=== PATIENT | male | born 1945 | race Caucasian/White ===

== ENCOUNTER 2017-01-22 18:44 | Inpatient (IN) | payer MEDICARE, OTHER ==
[~2017-01-22] VITALS: Ht 190.5 cm; Wt 78.0 kg
[2017-01-22 18:53] VITALS: Ht 190.5 cm; Wt 78.0 kg
--- NOTE | 2017-01-22 19:00 | ERA ---
ER Documentation Chief Complaint Date/Time DATE: 01/22/17 TIME: 18:59 Chief Complaint increased secretions,on & off fever X1 week,BIBA from [facility] The patient is a 71-year-old male, presenting to the ER because of increase secretion and fever for 1 week from the skilled nursing. 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 He recently finished antibiotic Rocephin for acute cystitis Past medical history: Dyslipidemia, chronic respiratory failure, history of CVA , history of CHF, seizure disorder, hypertension, atrial fibrillation, BPH, GERD , history of decubitus ulcer Past surgical history: Gastrostomy tube, tracheostomy ROS All systems reviewed and are negative except as per history of present illness. Allergies Allergies: Coded Allergies: No Known Allergy (Unverified , 11/02/16) Physical Exam Vitals Vital Signs Date Time Temp Pulse Resp B/P Pulse Ox O2 Delivery O2 Flow Rate FiO2 01/22/17 19:45 100 10.0 50 01/22/17 19:25 6.0 50 01/22/17 18:53 98.2 96 23 123/65 99 Physical Exam Const: No acute distress. Head: Atraumatic. Eyes: Normal Conjunctiva. ENT: Normal External Ears, Nose and Mouth. Neck: Full range of motion. No meningismus. Resp: Clear to auscultation bilaterally. Cardio: Irregularly irregular Abd: Soft, non distended, normal bowel sounds, non tender. Positive G -tube Skin: No petechiae or rashes. Back: No midline or flank tenderness. Ext: No cyanosis, or edema. Contracted Neur: Unable to perform due to his condition Psych: Unable to perform due to his condition Result Diagram: 01/22/171934 Results 24 hrs Laboratory Tests Test 01/22/17 19:09 01/22/17 19:35 01/22/17 19:40 01/22/17 19:55 Blood Gas Specimen Source Blood arterial Arterial Blood Date Drawn 01/22/2017 7:15:14 PM Arterial Blood pH (Temp corrected) 7.482 Arterial Blood pCO2 (Temp correct) 43.1mmhg Arterial Blood pO2 (Temp corrected) 96.5mmHG Arterial Blood HCO3 31.5mmol/L Arterial Blood Base Excess 7.3mmol/L Arterial Blood Oxygen Saturation 97.2mmHG Polo Test ACCEPTAB Arterial Blood Gas Puncture Site Right Radial Arterial Blood Carboxyhemoglobin 0.3% Arterial Blood Methemoglobin 0.2% Blood Gas A-a O2 Differential 211.5mmHg Oxyhemoglobin Percent 96.7% Total Hemoglobin 11.4g/dl Blood Gas Temperature 37.0C Blood Gas Modality TRACH COLLAR FiO2 50.0% Blood Gas Notified Whom MG Blood Gas Notified Time 01/22/2017 7:22:08 PM White Blood Count 9.510^3/ul Red Blood Count 3.7810^6/ul Hemoglobin 11.0g/dl Hematocrit 33.4% Mean Corpuscular Volume 88.4fl Mean Corpuscular Hemoglobin 29.1pg Mean Corpuscular Hemoglobin Concent 32.9g/dl Red Cell Distribution Width 15.0% Platelet Count 08763^3/UL Mean Platelet Volume 9.7fl Neutrophils % 69.7% Lymphocytes % 19.6% Monocytes % 9.2% Eosinophils % 0.5% Basophils % 0.2% Nucleated Red Blood Cells % 0.0/100WBC Neutrophils # 6.610^3/ul Lymphocytes # 1.910^3/ul Monocytes # 0.910^3/ul Eosinophils # 0.110^3/ul Basophils # 0.010^3/ul Nucleated Red Blood Cells # 0.010^3/ul Prothrombin Time 13.6Sec Prothrombin Time Ratio 1.1 INR International Normalized Ratio 1.04 Activated Partial Thromboplast Time 29.2Sec Urine Color LT. YELLOW Urine Clarity SL HAZY Urine pH 6.0 Urine Specific [place] 1.015 Urine Ketones NEGATIVE Urine Nitrite NEGATIVE Urine Bilirubin NEGATIVE Urine Urobilinogen 0.2 E.U./dL Urine Leukocyte Esterase 1+ Urine Microscopic RBC 0-2/HPF Urine Microscopic WBC 25-50/HPF Urine Squamous Epithelial Cells FEW Urine Bacteria MODERATE Urine Mucus FEW Urine Yeast MANY Urine Hemoglobin TRACE Urine Glucose 0.25%% Urine Total Protein TRACE Bedside Urine pH (LAB) 5.5 Bedside Urine Protein (LAB) 1+ Bedside Urine Glucose (UA) 0.50% Bedside Urine Ketones (LAB) Negative Bedside Urine Blood Trace-intact Bedside Urine Nitrite (LAB) Negative Bedside Urine Leukocyte Esterase (L 1+ Current Medications Medications (Trade) Dose Ordered Sig/Noelle Route PRN Reason Start Time Stop Time Status Last Admin Dose Admin Piperacillin Sod/ Tazobactam Sod (Zosyn 3.375gm/ 100 ml (Pmx)) 100 ml @ 200 mls/hr ONCE ONCE IVPB 01/22/17 20:30 01/22/17 20:59 Procedures/MDM [place] [id number] Radiology Main Line: [phone] DIAGNOSTIC IMAGING REPORT Patient: SUKHJINDER DOLAN : 1945 Age: 71 Sex: M MR #: [id number] DOS: 01/22/17 1900 Ordering MD: ESSIE BYRNE MD Location: E/R Room/Bed: PROCEDURE: XR Chest. CLINICAL INDICATION: Sepsis TECHNIQUE: Single AP portable chest COMPARISON: 11/03/2016 Chest x-ray FINDINGS: The cardiomediastinal silhouette is within normal limits of size. Chronic elevation of the right hemidiaphragm with right base atelectasis. Tracheostomy tube in stable position. Atherosclerotic calcification of the aorta. The lungs are clear without pleural effusion or focal consolidation. No pneumothorax. The osseous structures and soft tissues are unremarkable. IMPRESSION: 1. No evidence for active cardiopulmonary disease. Chronic elevation of the right hemidiaphragm. Support devices in stable position. RPTAT:AAJJ Physician Liliana Date Time Electronically viewed and signed by Physician Liliana on 01/22/2017 19:46 DARREN/ CC: ESSIE BYRNE MD EKG: Read by emergency physician Rate/Rhythm: Atrial fibrillation 96 beats/min QRS, ST, T-waves: No ST elevation, anterolateral T abnormality, no PVC Impression: Abnormal EKG MEDICAL MAKING DECISION: The patient is a 71-year-old male, presenting with acute febrile illness, most likely due to acute cystitis, failed outpatient therapy. He was treated with Zosyn IV. We inserted a Dubon catheter out with about 400 cc plus of urine The differential diagnoses considered include but are not limited to pneumonia, cystitis, pyelonephritis, infected decubitus ulcer Departure Diagnosis: Primary Impression: UTI (urinary tract infection) Additional Impressions: Anemia Urinary retention Condition: Stable Comments I discussed the findings with the patient. I discussed the patient with his physician Dr. Rosana Billy who was made aware of the lab, the treatment, the patient condition. The patient is admitted to telemetry at 8:15 pm ESSIE BYRNE MD January 22, 2017 19:00
[2017-01-22 19:22] LABS: AADO2 Arterial 211.5 mmHg (7.0-24.0); Allen Test ACCEPTAB; Arterial Base Excess 7.3 mmol/L (-3.0-3); Arterial COHb 0.3 % (0.0-3.0); Arterial Fraction of Oxyhgb 96.7 % (93.0-99.0); Arterial HCO3 31.5 mmol/L (22.0-26.0); Arterial MetHb 0.2 % (0.0-1.5); Arterial Total Hemglobin 11.4 g/dl (12.0-18.0); MODE TRACH COLLAR
--- NOTE | 2017-01-22 19:46 | RADRPT ---
PROCEDURE: XR Chest. CLINICAL INDICATION: Sepsis TECHNIQUE: Single AP portable chest COMPARISON: 11/03/2016 Chest x-ray FINDINGS: The cardiomediastinal silhouette is within normal limits of size. Chronic elevation of the right hem idiaphragm with right base atelectasis. Tracheostomy tube in stable position. Atherosclerotic devon cification of the aorta. The lungs are clear without pleural effusion or focal consolidation. No pn eumothorax. The osseous structures and soft tissues are unremarkable. IMPRESSION: 1. No evidence for active cardiopulmonary disease. Chronic elevation of the right hemidiaphragm. Rodriguez pport devices in stable position. RPTAT:AAJJ Physician Liliana Date Time Electronically viewed and signed by Physician Liliana on 01/22/2017 19:46 DARREN/
[2017-01-22 19:51] LABS: ADD SCAN DIFF NO
[2017-01-22 19:53] LABS: BASOPHILS % 0.2 % (0.0-2.0); EOSINOPHILS # 0.1 10^3/ul (0.0-0.5); EOSINOPHILS % 0.5 % (0.0-7.0); HEMATOCRIT 33.4 % (42.0-52.0); LYMPHOCYTES # 1.9 10^3/ul (0.8-2.9); LYMPHOCYTES % 19.6 % (15.0-51.0); MEAN CORPUSCULAR HEMOGLOBIN 29.1 pg (29.0-33.0); MEAN CORPUSCULAR HGB CONC 32.9 g/dl (32.0-37.0); MEAN CORPUSCULAR VOLUME 88.4 fl (82.0-101.0); MEAN PLATELET VOLUME 9.7 fl (7.4-10.4); MONOCYTE # 0.9 10^3/ul (0.3-0.9); MONOCYTES % 9.2 % (0.0-11.0); NEUTROPHIL # 6.6 10^3/ul (1.6-7.5); NEUTROPHILS % 69.7 % (39.0-77.0); PLATELET COUNT 361 10^3/UL (140-415); RED BLOOD COUNT 3.78 10^6/ul (4.70-6.10); WHITE BLOOD COUNT 9.5 10^3/ul (4.8-10.8)
[2017-01-22 19:53] LABS: URINE BLOOD (Dip) POC Trace-intact (NEGATIVE)
[2017-01-22 19:57] LABS: ADD UMIC YES; URINE BILIRUBIN (Dip) NEGATIVE (NEGATIVE); URINE BLOOD (Dip) TRACE (NEGATIVE); URINE COLOR LT. YELLOW (YELLOW); URINE KETONES (Dip) NEGATIVE (NEGATIVE); URINE LEUKOCYTE ESTERASE (Dip) 1+ (NEGATIVE); URINE NITRITE (Dip) NEGATIVE (NEGATIVE); URINE TOTAL PROTEIN (Dip) TRACE (NEGATIVE); URINE UROBILINOGEN (Dip) 0.2 E.U./dL (0.1-1.0)
[2017-01-22 20:07] LABS: INR 1.04; PROTIME 13.6 Sec (12.2-14.2); PT RATIO 1.1
[2017-01-22 20:08] LABS: PARTIAL THROMBOPLASTIN TIME 29.2 Sec (25.0-35.0)
[2017-01-22 20:09] LABS: URINE RBCS 0-2 /HPF (0)
[2017-01-22 20:10] LABS: BACTERIA,URINE MODERATE; MUCUS,URINE FEW
[2017-01-22 20:11] LABS: SQUAMOUS EPITHELIAL CELL,UR FEW
[2017-01-22 20:21] LABS: ALBUMIN 3.2 g/dl (3.3-4.9); CHLORIDE 90 mmol/L (97-110); SODIUM 134 mmol/L (135-144)
[2017-01-22 20:22] LABS: POTASSIUM 4.3 mmol/L (3.5-5.1)
[2017-01-22 20:24] LABS: ALANINE AMINOTRANSFERASE 36 IU/L (13-69); ALBUMIN/GLOBULIN RATIO 0.78; ALKALINE PHOSPHATASE 107 IU/L (42-121); ANION GAP 18 (8-16); ASPARTATE AMINO TRANSFERASE 33 IU/L (15-46); BLOOD UREA NITROGEN 25 mg/dl (7-20); CARBON DIOXIDE 30 mmol/L (21-31); CREATININE 0.43 mg/dl (0.61-1.24); GLUCOSE 205 mg/dl (70-220); TOTAL PROTEIN 7.3 g/dl (6.1-8.1)
[2017-01-22 20:25] LABS: CALCIUM 9.1 mg/dl (8.4-10.2)
[2017-01-22] MEDS ORDERED: PIPER-TAZO 3.375 GM IV (PMX) 100 ML IVPB ONE (20:30)
[2017-01-22 20:43] LABS: TROPONIN-I < 0.012 ng/ml (0.00-0.12)
[2017-01-22] MEDS ORDERED: TAMS-14 G-TUBE (22:29)
[2017-01-22] MEDS ORDERED: FLUC200T52 G-TUBE (22:29)
[2017-01-22] MEDS ORDERED: DOCU-159 GTB (22:29)
[2017-01-22] MEDS ORDERED: BISA10SU55 RC (22:29)
[2017-01-22] MEDS ORDERED: CARSR90 G-TUBE (22:29)
[2017-01-22] MEDS ORDERED: FINA5TAB4 G-TUBE (22:29)
[2017-01-22] MEDS ORDERED: DIGO125T6 G-TUBE (22:29)
[2017-01-22] MEDS ORDERED: SUCR1TAB56 G-TUBE (22:29)
[2017-01-22] MEDS ORDERED: ATOR40TA68 G-TUBE (22:29)
[2017-01-22 22:35] VITALS: TEMP 98.8
[2017-01-22] MEDS ORDERED: LEVEM SC (22:50)
[2017-01-22] MEDS ORDERED: MAGN400O4 G-TUBE (22:50)
[2017-01-22] MEDS ORDERED: LEVE250T66 G-TUBE (22:50)
[2017-01-22] MEDS ORDERED: FURO20TA3 G-TUBE (22:50)
[2017-01-22] MEDS ORDERED: MULTI G-TUBE (22:50)
[2017-01-22] MEDS ORDERED: HYDR-906 G-TUBE (22:50)
[2017-01-22] MEDS ORDERED: LISI10TA2 G-TUBE (22:50)
[2017-01-22] MEDS ORDERED: METF500T4 PO (22:50)
[2017-01-22] MEDS ORDERED: METO-448 G-TUBE (22:50)
[2017-01-22] MEDS ORDERED: AMIN30LI G-TUBE (23:07)
[2017-01-22] MEDS ORDERED: NOVO3I SC (23:07)
[2017-01-22] MEDS ORDERED: MODA100T10 G-TUBE (23:07)
[2017-01-22] MEDS ORDERED: ACET325T45 G-TUBE (23:07)
[2017-01-22] MEDS ORDERED: OMEP20CA16 G-TUBE (23:07)
[2017-01-22] MEDS ORDERED: CHLO473M4 MM (23:07)
[2017-01-22] MEDS ORDERED: ACET-2047 G-TUBE (23:07)
[2017-01-22 23:15] VITALS: BP 102/84; PULSE 136; RESP 18
[2017-01-22 23:30] VITALS: BP 121/84; PULSE 120; RESP 19
[2017-01-22 23:45] VITALS: BP 123/71; PULSE 115; RESP 20
[2017-01-23] VITALS (30 sets, daily range): BP systolic 103–161; BP diastolic 59–130; PULSE 77–155; RESP 19–35
[2017-01-23] MEDS ORDERED: INSULIN ASPART [NOVOLOG] 3 ML PEN SC SCH
[2017-01-23] MEDS ORDERED: BISACODYL 10 MG SUPP PR SCH
[2017-01-23] MEDS ORDERED: MAGNESIUM HYDROXIDE 30ML CUP GTB SCH
[2017-01-23] MEDS ORDERED: ACETAMINOPHEN 325 MG TAB GTB PRN ×2
[2017-01-23] MEDS ORDERED: CEFTRIAXONE 1 GM/50 ML (PMX) 50 ML IVPB SCH
[2017-01-23] MEDS ORDERED: DEXTROSE 5%-0.9% NACL 1,000 ML IV SCH
[2017-01-23] MEDS ORDERED: ACETAMINOPHEN 650MG/20.3ML CUP GTB PRN (01:00)
[2017-01-23] MEDS ORDERED: SOD CHLORIDE 0.9% IV ONE (01:30)
[2017-01-23] MEDS: HYDROCODONE/APAP (5/325) TAB GTB SCH ×2 (01:47→05:58)
[2017-01-23] MEDS: SUCRALFATE 1 GM TAB GTB SCH ×4 (01:47→17:25)
[2017-01-23] MEDS: METOPROLOL 25 MG TAB GTB SCH ×4 (01:48→17:26)
[2017-01-23] MEDS: LANSOPRAZOLE 30 MG CAP GTB SCH ×2 (05:58→17:25)
[2017-01-23] MEDS ORDERED: DILTIAZEM 90 MG TAB GTB SCH (06:00)
[2017-01-23] MEDS ORDERED: FUROSEMIDE 20 MG TAB GTB SCH (06:00)
[2017-01-23] MEDS ORDERED: DILTIAZEM (SR) 90 MG CAP PO SCH (06:00)
[2017-01-23 06:07] LABS: ADD SCAN DIFF NO; BASOPHILS % 0.2 % (0.0-2.0); EOSINOPHILS # 0.1 10^3/ul (0.0-0.5); EOSINOPHILS % 0.5 % (0.0-7.0); HEMATOCRIT 32.1 % (42.0-52.0); HEMOGLOBIN 10.2 g/dl (14.0-18.0); LYMPHOCYTES # 2.6 10^3/ul (0.8-2.9); LYMPHOCYTES % 25.9 % (15.0-51.0); MEAN CORPUSCULAR HEMOGLOBIN 28.6 pg (29.0-33.0); MEAN CORPUSCULAR HGB CONC 31.8 g/dl (32.0-37.0); MEAN CORPUSCULAR VOLUME 89.9 fl (82.0-101.0); MEAN PLATELET VOLUME 9.5 fl (7.4-10.4); MONOCYTE # 0.9 10^3/ul (0.3-0.9); MONOCYTES % 8.3 % (0.0-11.0); NEUTROPHIL # 6.5 10^3/ul (1.6-7.5); NEUTROPHILS % 64.1 % (39.0-77.0); PLATELET COUNT 344 10^3/UL (140-415); RED BLOOD COUNT 3.57 10^6/ul (4.70-6.10); RED CELL DISTRIBUTION WIDTH 15.2 % (11.5-14.5); WHITE BLOOD COUNT 10.2 10^3/ul (4.8-10.8)
[2017-01-23] MEDS: DILTIAZEM 30 MG TAB GTB SCH ×3 (06:08→22:22)
[2017-01-23 06:49] LABS: POTASSIUM 4.1 mmol/L (3.5-5.1)
[2017-01-23 06:52] LABS: CREATININE 0.44 mg/dl (0.61-1.24)
[2017-01-23] MEDS ORDERED: PENDING SANTYL ORDER FOR WOUND CARE XX PRN ×2 (07:30→08:30)
[2017-01-23] MEDS ORDERED: metFORMIN 500 MG TAB PO SCH (07:35)
[2017-01-23] MEDS ORDERED: DEXTROSE 50% 50 ML SYRINGE IV PRN ×2 (08:30)
[2017-01-23] MEDS ORDERED: GLUCOSE GEL 15 GRAM TUBE BUCCAL PRN (08:30)
[2017-01-23] MEDS ORDERED: GLUCOSE GEL 15 GRAM TUBE PO PRN ×2 (08:30)
[2017-01-23] MEDS ORDERED: GLUCAGON 1 MG INJ IM PRN (08:30)
[2017-01-23] MEDS ORDERED: BISACODYL 10 MG SUPP PR PRN (09:00)
[2017-01-23] MEDS ORDERED: NON-FORMULARY/PATIENT OWN MED (Omeprazole* 20 MG) G-TUBE SCH (09:00)
[2017-01-23] MEDS ORDERED: INSULIN DETEMIR [LEVEMIR] 3ML CART SC SCH (09:00)
[2017-01-23] MEDS ORDERED: MODAFINIL 100 MG TAB GTB SCH (09:00)
[2017-01-23] MEDS ORDERED: HYDROCODONE/APAP (5/325) TAB GTB PRN (09:00)
[2017-01-23] MEDS ORDERED: INSULIN DETEMIR 15 UNIT SC SCH (09:00)
[2017-01-23] MEDS: INSULIN ASPART [NOVOLOG] 3 ML PEN SC SCH ×5 (09:00→20:41)
[2017-01-23] MEDS ORDERED: DOCUSATE SODIUM 100 MG CAP PO SCH (09:00)
[2017-01-23] MEDS: CHLORHEXIDINE GLUCONATE 15 ML UD CUP MM SCH ×2 (09:26→20:34)
[2017-01-23] MEDS: TAMSULOSIN (SR) 0.4 MG CAP PO SCH (09:26)
[2017-01-23] MEDS: LISINOPRIL 10 MG TAB GTB SCH (09:26)
[2017-01-23] MEDS: MULTIVITAMINS THERAPEUTIC TAB GTB SCH (09:26)
[2017-01-23] MEDS: LEVETIRACETAM 250 MG TAB PO SCH ×2 (09:26→20:34)
[2017-01-23] MEDS: FINASTERIDE 5 MG TAB GTB SCH (09:26)
[2017-01-23] MEDS: PIPER-TAZO 3.375 GM IV (PMX) 100 ML IVPB SCH ×3 (09:26→22:23)
[2017-01-23] MEDS: DOCUSATE SODIUM 10 MG/ML (10ML CUP) NGT SCH ×2 (09:26→20:34)
--- NOTE | 2017-01-23 10:12 | CONS ---
Date/Time of Note Date/Time of Note DATE: 01/23/17 TIME: 10:07 Assessment/Plan Assessment/Plan Additional Assessment/Plan Chest x-ray was reviewed from yesterday which is showing elevation of right hemidiaphragm likely a chronic finding. Next Urine analysis is positive for moderate yeast. Next Assessment recommendations; 1. Patient admitted for UTI likely from yeast with possibly some element of aspiration pneumonia involving the right upper lobe. 2. Chronic respiratory failure, maintained on T-piece. 3. Multiple other comorbidities including CHF, CVA, atrial fibrillation, diabetes and hypertension. Continue current treatment. Obtain follow-up chest x-ray in 24 hours. Start Diflucan 200 mg IV daily. Further antibiotic adjustment to be done once culture results are obtained. Consultation Date/Type/Reason Admit Date/Time January 22, 2017 at 20:20 Date of Consultation: January 23, 2017 Type of Consultation: Pulmonary/critical care Reason for Consultation Pulmonary consultations obtained for evaluation of respiratory failure, patient admitted with sepsis. History of presenting any; Patient is a 71-year-old gentleman who was also to ER [facility] with complaints of fever as well as secretions coming from the tracheostomy tube. Patient because of his history of severe CVA is unable to give any history whatsoever and history was obtained from medical records. Currently patient was doing fine until yesterday morning when low-grade fever was discovered in association with secretions coming through the tracheostomy tube. No overt seizure activity has been reported. Patient has been remained hemodynamically stable. Next Past medical history; 1. History of chronic respiratory failure, patient maintained on tracheal T piece. 2. History of tracheostomy and G-tube extra # 3. CVA. 4. Chronic atrial fibrillation. 5. CHF. 6. Hypertension. 7. Diabetes. 8. BPH. Medications; reviewed. Allergies; none. Social history; patient never smoked Family history; patient is has a supportive family. Occupational history; patient currently on disability. Review systems; unable to be obtained.. General exam; elderly male, awake but unresponsive to any commands, currently in no distress, maintained on tracheal T piece. Social History Smoking Status: Unknown if ever smoked Exam/Review of Systems Vital Signs Vitals Vital Signs Date Time Temp Pulse Resp B/P Pulse Ox O2 Delivery O2 Flow Rate FiO2 01/23/17 08:00 97 23 128/77 100 Trach Collar 01/23/17 07:25 10.0 40 01/23/17 04:00 98.5 Intake and Output 01/22/17 01/22/17 01/23/17 14:59 22:59 06:59 Intake Total 3100 ml Output Total 485 ml Balance 2615 ml Exam HEENT exam is; supple neck, positive JVD. No lymphadenopathy. Midline trachea. No thyromegaly. Pupils are midsize bilaterally. Tracheostomy placed with clean insertion site. Chest exam is; clear to auscultation. No added sound. S1-S2 audible, no murmurs, irregular rhythm. Abdomen examination; soft, G-tube in place. Bowel sounds audible. No organomegaly. Extremity examination; no peripheral edema. Skin exam; no skin ulcerations. PROJECT COORDINATOR examination; patient is awake but unresponsive to any commands. Results Result Diagram: 01/23/17 0547 01/23/17 0524 Results 24 hrs Laboratory Tests Test 01/22/17 19:09 01/22/17 19:35 01/22/17 19:40 01/22/17 19:55 Blood Gas Specimen Source Blood arterial Arterial Blood Date Drawn 01/22/2017 7:15:14 PM Arterial Blood pH (Temp corrected) 7.482 H Arterial Blood pCO2 (Temp correct) 43.1 Arterial Blood pO2 (Temp corrected) 96.5 H Arterial Blood HCO3 31.5 H Arterial Blood Base Excess 7.3 H Arterial Blood Oxygen Saturation 97.2 Polo Test ACCEPTAB Arterial Blood Gas Puncture Site Right Radial Arterial Blood Carboxyhemoglobin 0.3 Arterial Blood Methemoglobin 0.2 Blood Gas A-a O2 Differential 211.5 H Oxyhemoglobin Percent 96.7 Total Hemoglobin 11.4 L Blood Gas Temperature 37.0 Blood Gas Modality TRACH COLLAR FiO2 50.0 Blood Gas Notified Whom MG Blood Gas Notified Time 01/22/2017 7:22:08 PM White Blood Count 9.5 # Red Blood Count 3.78 L Hemoglobin 11.0 L Hematocrit 33.4 L Mean Corpuscular Volume 88.4 Mean Corpuscular Hemoglobin 29.1 Mean Corpuscular Hemoglobin Concent 32.9 Red Cell Distribution Width 15.0 H Platelet Count 361 Mean Platelet Volume 9.7 Neutrophils % 69.7 Lymphocytes % 19.6 Monocytes % 9.2 Eosinophils % 0.5 Basophils % 0.2 Nucleated Red Blood Cells % 0.0 Neutrophils # 6.6 Lymphocytes # 1.9 Monocytes # 0.9 Eosinophils # 0.1 Basophils # 0.0 Nucleated Red Blood Cells # 0.0 Prothrombin Time 13.6 Prothrombin Time Ratio 1.1 INR International Normalized Ratio 1.04 Activated Partial Thromboplast Time 29.2 Sodium Level 134 L Potassium Level 4.3 Chloride Level 90 L Carbon Dioxide Level 30 Anion Gap 18 H Blood Urea Nitrogen 25 H Creatinine 0.43 L Glucose Level 205 Lactic Acid Level 2.9 H Calcium Level 9.1 Total Bilirubin 0.0 L Direct Bilirubin 0.00 Indirect Bilirubin 0.0 Aspartate Amino Transf (AST/SGOT) 33 Alanine Aminotransferase (ALT/SGPT) 36 Alkaline Phosphatase 107 Troponin I < 0.012 Total Protein 7.3 Albumin 3.2 L Globulin 4.10 H Albumin/Globulin Ratio 0.78 Urine Color LT. YELLOW Urine Clarity SL HAZY Urine pH 6.0 Urine Specific [place] 1.015 Urine Ketones NEGATIVE Urine Nitrite NEGATIVE Urine Bilirubin NEGATIVE Urine Urobilinogen 0.2 E.U./dL Urine Leukocyte Esterase 1+ H Urine Microscopic RBC 0-2 Urine Microscopic WBC 25-50 Urine Squamous Epithelial Cells FEW Urine Bacteria MODERATE Urine Mucus FEW Urine Yeast MANY Urine Hemoglobin TRACE Urine Glucose 0.25% H Urine Total Protein TRACE Bedside Urine pH (LAB) 5.5 Bedside Urine Protein (LAB) 1+ H Bedside Urine Glucose (UA) 0.50% H Bedside Urine Ketones (LAB) Negative Bedside Urine Blood Trace-intact H Bedside Urine Nitrite (LAB) Negative Bedside Urine Leukocyte Esterase (L 1+ H Test 01/22/17 21:30 01/22/17 23:40 01/23/17 05:24 01/23/17 05:47 Lactic Acid Level 2.3 H 2.4 H Sodium Level 136 Potassium Level 4.1 Chloride Level 97 Carbon Dioxide Level 29 Anion Gap 14 Blood Urea Nitrogen 19 Creatinine 0.44 L Glucose Level 228 H Calcium Level 8.0 L White Blood Count 10.2 Red Blood Count 3.57 L Hemoglobin 10.2 L Hematocrit 32.1 L Mean Corpuscular Volume 89.9 Mean Corpuscular Hemoglobin 28.6 L Mean Corpuscular Hemoglobin Concent 31.8 L Red Cell Distribution Width 15.2 H Platelet Count 344 Mean Platelet Volume 9.5 Neutrophils % 64.1 Lymphocytes % 25.9 Monocytes % 8.3 Eosinophils % 0.5 Basophils % 0.2 Nucleated Red Blood Cells % 0.0 Neutrophils # 6.5 Lymphocytes # 2.6 Monocytes # 0.9 Eosinophils # 0.1 Basophils # 0.0 Nucleated Red Blood Cells # 0.0 Test 01/23/17 09:15 Bedside Glucose 280 H Medications Medications Current Medications Dextrose/Sodium Chloride 1,000 ml @ 75 mls/hr [id number] IV Last administered on 01/22/17 23:46; Admin Dose 75 MLS/HR; Start 01/23/17 at 00:00 Ceftriaxone Sodium (Rocephin) 50 ml @ 100 mls/hr Q24H IVPB Last administered on 01/23/17 00:19; Admin Dose 100 MLS/HR; Start 01/23/17 at 00:00 Atorvastatin Calcium (Lipitor) 40 mg QHS GTB ; Start 01/23/17 at 21:00 Chlorhexidine Gluconate (Peridex) 15 ml Q12 MM Last administered on 01/23/17 09:26; Admin Dose 15 ML; Start 01/23/17 at 09:00 Digoxin (Digoxin) 0.125 mg DAILY@13 GTB ; Start 01/23/17 at 13:00 Finasteride (Proscar) 5 mg DAILY GTB Last administered on 01/23/17 09:26; Admin Dose 5 MG; Start 01/23/17 at 09:00 Furosemide (Lasix) 20 mg DAILY@06 GTB Last administered on 01/23/17 05:59; Admin Dose 20 MG; Start 01/23/17 at 06:00; Status Future Hold Levetiracetam (Keppra) 125 mg Q12 PO Last administered on 01/23/17 09:26; Admin Dose 125 MG; Start 01/23/17 at 09:00 Lisinopril (Zestril) 10 mg DAILY GTB Last administered on 01/23/17 09:26; Admin Dose 10 MG; Start 01/23/17 at 09:00 Metoprolol Tartrate (Lopressor) 25 mg Q6 GTB Last administered on 01/23/17 05: 57; Admin Dose 25 MG; Start 01/23/17 at 00:00 Multivitamins Therapeutic (Theragran) 1 tab DAILY GTB Last administered on 01/23 09:26; Admin Dose 1 TAB; Start 01/23/17 at 09:00 Sucralfate (Carafate) 1 gm Q6 GTB Last administered on 01/23/17 05:59; Admin Dose 1 GM; Start 01/23/17 at 00:00 Tamsulosin HCl (Flomax) 0.4 mg DAILY PO Last administered on 01/23/17 09:26; Admin Dose 0.4 MG; Start 01/23/17 at 09:00 Lansoprazole (Prevacid) 30 mg BID@,18 GTB Last administered on 01/23/17 05: 58; Admin Dose 30 MG; Start 01/23/17 at 06:00 Insulin Detemir (Levemir) 15 unit Q12 SC Last administered on 01/23/17 09:28; Admin Dose 15 UNIT; Start 01/23/17 at 09:00 Acetaminophen (Tylenol Liquid) 650 mg Q4H PRN GTB PAIN AND OR ELEVATED TEMP; Start 01/23/17 at 01:00 Modafinil (Provigil) 50 mg DAILY GTB ; Start 01/23/17 at 09:00 Diltiazem HCl (Cardizem) 90 mg Q8 GTB Last administered on 01/23/17 06:08; Admin Dose 90 MG; Start 01/23/17 at 06:00 Insulin Aspart (Novolog Insulin Pen) NOVOLOG *MILD* ALGORI... Q4 SC ; Start at 09:00 Miscellaneous Information (Pending Santyl Order For Wound Care) This patient horowitz... PRN PRN XX WOUND CARE; Start 01/23/17 at 08:30 Miscellaneous Information 1 ea NOTE XX ; Start 01/23/17 at 08:30 Glucose (Glutose) 15 gm Q15M PRN PO DECREASED GLUCOSE; Start 01/23/17 at 08:30 Glucose (Glutose) 22.5 gm Q15M PRN PO DECREASED GLUCOSE; Start 01/23/17 at 08: 30 Dextrose (D50w Syringe) 25 ml Q15M PRN IV DECREASED GLUCOSE; Start 01/23/17 at 08:30 Dextrose (D50w Syringe) 50 ml Q15M PRN IV DECREASED GLUCOSE; Start 01/23/17 at 08:30 Glucagon (Glucagen) 1 mg Q15M PRN IM DECREASED GLUCOSE; Start 01/23/17 at 08:30 Glucose 15 gm 15 gm Q15M PRN BUCCAL DECREASED GLUCOSE; Start 01/23/17 at 08:30 Piperacillin Sod/ Tazobactam Sod (Zosyn 3.375gm/ 100 ml (Pmx)) 100 ml @ 200 mls /hr Q8 IVPB Last administered on 01/23/17 09:26; Admin Dose 200 MLS/HR; Start 01/23/17 at 08:15 Acetaminophen/ Hydrocodone Bitart (Higgins (5/325)) 1 tab Q4 PRN GTB PAIN; Start 01/23/17 at 09:00 Magnesium Hydroxide (Milk Of Mag) 30 ml Q24H PRN GTB CONSTIPATION; Start at 00:00 Docusate Sodium (Colace Liquid Cup) 100 mg BID NGT Last administered on 09:26; Admin Dose 100 MG; Start 01/23/17 at 09:00 Bisacodyl (Dulcolax Supp) 10 mg Q48H PRN ND CONSTIPATION; Start 01/23/17 at 09: 00 ROBSON CLARK January 23, 2017 10:12
--- NOTE | 2017-01-23 10:48 | CONS ---
DATE OF ADMISSION: 01/22/2017 DATE OF CONSULTATION: 01/23/2017 TYPE OF CONSULTATION: CARDIOLOGY REASON FOR CONSULTATION: Atrial fibrillation, congestive heart failure. CHIEF COMPLAINT: Fever, possible UTI, sepsis, respiratory failure. HISTORY OF PRESENT ILLNESS: Thank you for this referral. History was obtained from discussion with multiple physicians including Dr. Cortez, discussion with the staff, discussion with the patient's daughter and . The patient also known to me when he was admitted to [facility], old recor ds were reviewed as well. This is an unfortunate 71-year-old gentleman with history of CVA, recurre nt, who has had respiratory failure, status post tracheostomy and was [facility] because of increasing recurrent fever as well as possible UTI including possibly secretions. The pa tient history, he was noted to be in atrial fibrillation with rapid ventricular response. The patient is nonverbal, unable to provide history to me, but no reported chest pain or pressure. MEDICATIONS: Reviewed as per medical reconciliation sheet, which was personally reviewed. ALLERGIES: NO REPORTED ALLERGIES. SOCIAL HISTORY: The patient currently does not smoke. He apparently had smoked in the past. FAMILY HISTORY: No reported early coronary artery disease. PAST MEDICAL HISTORY: History of cerebrovascular accident many years ago. He had another CVA appar ently earlier this year, which appeared to be a hemorrhagic stroke at that time. He has chronic atr ial fibrillation, dyslipidemia, history of congestive heart failure, valvular heart disease, diabete s, encephalopathy. REVIEW OF SYSTEMS: As above-mentioned, patient is bedridden, otherwise all are negative. PHYSICAL EXAMINATION: VITAL SIGNS: Temperature 98.5, heart rate of 97, blood pressure 128/77, respiratory rate of 23, sat urating 100%. HEENT: Normocephalic, atraumatic. Pupils are equal. NECK: Status post tracheostomy, on oxygen. CARDIOVASCULAR: Irregularly irregular, tachycardic. PULMONARY: With mild diffuse rhonchi. GASTROINTESTINAL: Soft, status post PEG placement. EXTREMITIES: With trivial edema. NEUROLOGIC: Opens his eyes, is not verbal. Unable to move his right extremity. PSYCHIATRIC: Appears to be calm now. DERMATOLOGIC: With no active bleeding. LABORATORY DATA: Sodium 136, potassium 4.1, BUN of 19, creatinine 0.44, glucose of 228. WBC of 7.2 , hemoglobin 10.2, platelet of 344. Review of the old chart showed that he had an echocardiogram done on 11/07/2016 showed ejection frac tion of 55%. There is moderate mitral valve regurgitation. PA pressure of 26 mmHg. EKG was person ally reviewed, which showed atrial fibrillation, nonspecific ST-T abnormalities. ASSESSMENT AND PLAN: 1. Atrial fibrillation with rapid ventricular response. 2. Hypoxemic, hypercapnic respiratory failure, status post tracheostomy. 3. History of repeated CVAs including what appeared to be a hemorrhagic CVA this year, currently no t anticoagulated. 4. Anemia. 5. Urinary tract infection and possible sepsis. 6. Abnormal EKG secondary to above. 7. History of hypertension, currently under better control. 8. History of dyslipidemia. RECOMMENDATIONS: I will continue with the heart rate control with digoxin, Cardizem and metoprolol. I will check a digoxin level tomorrow morning. Respiratory care will be continued and managed as per pulmonary. Antibiotic as per internal medicine. The patient is not anticoagulated at this time due to concern about his recent hemorrhagic CVA. We will consider repeat CAT scan and evaluation b y neurology to see if it is safe for the patient to be resumed on the anticoagulants. For now, we w ill continue with current cardiac care. Continue with ICU care. We will continue to follow. If th e patient remains tachycardic, may consider discontinuation of as well. Discussed with Dr. Ra colin. Dictated By: KATHY LAFLEUR/NERY Conf#: [id number] DID#: [id number] CC: NAVEEN CORTEZ DO;*EndCC*
--- NOTE | 2017-01-23 10:51 | HP ---
DATE OF ADMISSION: 01/22/2017 CHIEF COMPLAINT: Sepsis. HISTORY OF PRESENT ILLNESS: This is a 71-year-old male with a past medical history of cerebrovascul ar accident with chronic encephalopathy, history of chronic respiratory failure status post tracheos tierra, history of dysphagia, history of seizure disorder, hypertension, AFib, BPH, GERD, history of d yslipidemia who presents to [facility] for evaluation of his underlying fever. Th e patient resides at [facility] and was noted to have a urinary tract infection and has been re ceiving antibiotics; however, patient continues to have low grade fevers. As a result, he was broug ht over to [facility] for continued evaluation. In the emergency room, the patien t was afebrile. Laboratory data drawn showed a white count 9.5. The patient had a chest x-ray that showed no acute findings. The patient's urinalysis did show some findings of pyuria and the renato dhillon was started on antibiotic therapy and was admitted to telemetry for further evaluation. Upon my evaluation of the patient, the patient has currently opened his eyes, is able to track, whic h is his baseline. The patient is nonverbal. There have been no reports of hemoptysis, hematemesis or hematochezia. PAST MEDICAL HISTORY: As stated above, history of CVA, history of dysphagia, history of seizure dis order, hypertension, history of chronic encephalopathy, history of BPH, history of GERD, history of decubitus wound, history of aphasia this. PAST SURGICAL HISTORY: Status post trach, status post PEG. FAMILY HISTORY: Noncontributory. SOCIAL HISTORY: Lives at a skilled nurse facility. MEDICATIONS: The patient's medications have been reviewed and reconciled. ALLERGIES: NO KNOWN DRUG ALLERGIES. REVIEW OF SYSTEMS: Unable to do adequate review of systems as the patient is nonverbal. Pertinent positives as obtained by reviewing medical records, speaking to hospital staff, stated in HPI, other tamez negative. PHYSICAL EXAMINATION: VITAL SIGNS: Blood pressure is 103/59, respirations 20, pulse 77, temperature 98.5. HEENT: Head is normocephalic. NECK: Supple. Exam shows a trach. HEART: Regular rate. LUNGS: Show diminished breath sounds at base. ABDOMEN: Soft, nontender to palpation. No rebound or guarding. Positive for PEG. EXTREMITIES: Negative for clubbing, cyanosis, no edema. DERMATOLOGIC: No rashes. MUSCULOSKELETAL: Positive wound. NEUROLOGIC: Limited exam due to lack of patient cooperation. LABORATORY DATA: Shows sodium 136, potassium 4.1, chloride 97, BUN 19, creatinine 0.44. White coun t 10.2, hemoglobin 10.2, hematocrit 32.1, platelet count 344. IMAGING STUDIES: As stated in HPI. ASSESSMENT AND PLAN: This is a 71-year-old male who presents with: 1. Sepsis, underlying source secondary to urinary tract infection, possible . The patient's u rinalysis shows pyuria. The patient has copious secretions. Chest x-ray was negative. Plan is to continue antibiotics with Zosyn. Will followup blood cultures, urine cultures, sputum culture. Pipe l continue to monitor lactic acid levels as they are trending down. Continue IV fluids for another 24 hours. We will follow up procalcitonin level. We will also place an ID consult with Dr. Parra for evaluation. 2. Chronic respiratory failure, status post tracheostomy, patient is currently stable on trach mask , will continue. Continue nebulizer therapy. We will place a pulmonary consult with Dr. Murrell fo r evaluation. 3. Atrial fibrillation, currently rate controlled. The patient will continue medical management wi th beta blockers. Will defer full anticoagulation as there is a questionable history of bleed. We will follow up with the patient's family who also place a cardiology consult with Dr. Briones for [place]. 4. Chronic encephalopathy secondary to cerebrovascular accident. 5. Acute on chronic encephalopathy. Etiology is likely toxic metabolic, possibly due to UTI and se psis. We will continue current antibiotic regimen and will monitor mental status closely. 6. Dysphagia status post percutaneous endoscopic gastrostomy tube. Continue tube feeding. 7. History of hypertension. Continue current blood pressure regimen. 8. Seizure disorder. Continue Keppra. 9. Coronary artery disease. Continue medical management. 10. Diabetes. Continue Accu-Cheks, insulin sliding scale. 11. Benign prostatic hypertrophy. Continue Flomax. 12. Gastrointestinal and deep venous thrombosis prophylaxis. Continue proton pump inhibitors and s equential leg squeezers. 13. Nonoliguric acute kidney injury. Etiology is hemodynamics. Renal function has improved with I V hydration. Continue to monitor. 14. Anemia, likely of chronic disease. Continue to monitor hemoglobin and hematocrit levels. Please note I spent up to 25 minutes [id number] time with the patient and patient's family discuss ing code status. The patient is FULL CODE. Dictated By: NAVEEN LAYTON/NERY Conf#: [id number] DID#: [id number]
[2017-01-23] MEDS ORDERED: ALBUTEROL/IPRATROPIUM (NEB) 3 ML AMP HHN PRN (11:00)
[2017-01-23] MEDS ORDERED: FLUCONAZOLE 200 MG/NS (PMX) 100 ML IVPB SCH (11:30)
--- NOTE | 2017-01-23 11:47 | CONS ---
DATE OF ADMISSION: 01/22/2017 DATE OF CONSULTATION: 01/23/2017 TYPE OF CONSULTATION: Infectious Disease. REASON FOR CONSULTATION: Antibiotic management. HISTORY OF PRESENT ILLNESS: Nithin Santillan is a 71-year-old male with numerous problems who comes in with sepsis and is being seen for antibiotic management. His past problems include: 1. History of cerebrovascular accident with chronic encephalopathy. 2. Chronic respiratory failure, status post tracheostomy. 3. Dysphagia. 4. Seizure disorder. 5. Hypertension. 6. Atrial fibrillation. 7. Benign prostatic hypertrophy. 8. GERD. 9. Dyslipidemia. The patient comes in for evaluation of fevers. He was noted to have a urinary tract infection at [facility] and has low grade fevers. In the emergency room, his white count was was 9.5, but currently is 10.2, hemoglobin 10.2, hematocrit 32.1, platelet count 344,000. BUN and crea tinine 19/0.44. Patient is nonverbal. PAST MEDICAL HISTORY: As outlined. PAST SURGICAL HISTORY: Status post tracheostomy, status post G-tube placement. FAMILY HISTORY: Noncontributory. SOCIAL HISTORY: He lives in a longterm facility. HABITS: He does not smoke, drink or abuse drugs. ALLERGIES: NONE TO PENICILLIN, SULFA OR FOODS. MEDICATIONS: Per chart. REVIEW OF SYSTEMS: Noncontributory. PHYSICAL EXAMINATION: GENERAL: The patient is a well-developed, chronically ill-appearing male who is awake, but nonverba l, in no acute distress. VITAL SIGNS: Stable. He is afebrile. SKIN: Without generalized rash. HEENT: Within normal limits. NECK: Supple. LYMPH NODES: None palpable. CHEST: Decreased breath sounds at the bases. HEART: Without murmur or gallop. RECTAL AND GENITAL: The patient has tracheostomy without any discharge. NECK: Supple. LYMPH NODES: None palpable. CHEST: Decreased breath sounds at the bases. ABDOMEN: Soft, nontender, without organosplenomegaly or masses. He has a G-tube. EXTREMITIES: Without cyanosis, clubbing, or edema. RECTAL/GENITAL: Exam is deferred. NEUROLOGIC: The patient is nonverbal. He has no obvious focal neurological abnormalities. A urine culture was done. His BUN and creatinine are 19/0.44. His urine shows 1+ leukocyte esteras e, 25 to 50 white cells per high-power field. Chest x-ray: No evidence for cardiopulmonary disease . The patient is on fluconazole and he is on Zosyn to cover his urine. He was on ceftriaxone, and he is also on Zosyn, so I am going to stop the ceftriaxone. I will dictate my findings to Dr. Cortez and also to Dr. Livingston and Dr. Briones. Dictated By: BIANCA QIU MD, JD/NERY Conf#: [id number] DID#: [id number]
[2017-01-23] MEDS: MODAFINIL 200 MG TAB GTB SCH (13:15)
[2017-01-23] MEDS: DIGOXIN 0.125 MG TAB GTB SCH (13:15)
[2017-01-23] MEDS ORDERED: ALBUTEROL/IPRATROPIUM (NEB) 3 ML AMP HHN SCH (14:00)
--- NOTE | 2017-01-23 15:04 | RADRPT ---
PROCEDURE: XR Chest. CLINICAL INDICATION: Shortness of breath. TECHNIQUE: Single frontal view. COMPARISON: 01/22/2017. FINDINGS: The tracheostomy tube is in satisfactory position. There is right basilar atelectasis and elevation of the right hemidiaphragm, unchanged. The lungs are otherwise clear. The heart size is normal. There is calcification in the aorta consistent with atherosclerosis. There is no pleural effusion. There is no pneumothorax. IMPRESSION: 1. No change from 01/22/2017. RPTAT: QQ .Kentrell Ybarra MD, MD Date Time Electronically viewed and signed by .Kentrell Ybarra MD, MD on 01/23/2017 15:04 .R/
[2017-01-23] MEDS ORDERED: LEVALBUTEROL (NEB) 0.63 MG/3 ML AMP HHN PRN (16:00)
[2017-01-23] MEDS: DILTIAZEM-D5W 125MG/125ML DRIP 125 ML IV SCH (16:38)
[2017-01-23] MEDS ORDERED: IPRATROPIUM (NEB) 0.5 MG/2.5 ML AMP HHN PRN (17:30)
[2017-01-23] MEDS: LEVALBUTEROL (NEB) 0.63 MG/3 ML AMP HHN SCH (20:03)
[2017-01-23] MEDS: IPRATROPIUM (NEB) 0.5 MG/2.5 ML AMP HHN SCH (20:03)
[2017-01-23] MEDS: ATORVASTATIN 40 MG TAB GTB SCH (20:34)
[2017-01-23] MEDS: INSULIN DETEMIR [LEVEMIR] 3ML CART SC SCH (20:42)
[2017-01-24] VITALS (12 sets, daily range): BP systolic 129–150; BP diastolic 64–93; PULSE 69–105; RESP 18–20
[2017-01-24] MEDS ORDERED: MAGNESIUM HYDROXIDE 30ML CUP GTB PRN
[2017-01-24] MEDS: SUCRALFATE 1 GM TAB GTB SCH ×4 (00:24→17:51)
[2017-01-24] MEDS: METOPROLOL 25 MG TAB GTB SCH ×4 (00:26→17:56)
[2017-01-24] MEDS: INSULIN ASPART [NOVOLOG] 3 ML PEN SC SCH ×6 (00:40→20:44)
[2017-01-24] MEDS: IPRATROPIUM (NEB) 0.5 MG/2.5 ML AMP HHN SCH ×4 (02:03→19:45)
[2017-01-24] MEDS: LEVALBUTEROL (NEB) 0.63 MG/3 ML AMP HHN SCH ×4 (02:03→19:45)
[2017-01-24] MEDS: DILTIAZEM-D5W 125MG/125ML DRIP 125 ML IV SCH ×2 (03:16→18:00)
[2017-01-24] MEDS: LANSOPRAZOLE 30 MG CAP GTB SCH ×2 (05:29→17:56)
[2017-01-24] MEDS: DILTIAZEM 30 MG TAB GTB SCH ×3 (05:30→22:43)
[2017-01-24] MEDS: PIPER-TAZO 3.375 GM IV (PMX) 100 ML IVPB SCH ×3 (05:34→22:41)
[2017-01-24 07:33] LABS: ADD SCAN DIFF NO
[2017-01-24 07:37] LABS: BASOPHILS % 0.1 % (0.0-2.0); EOSINOPHILS % 0.4 % (0.0-7.0); HEMATOCRIT 31.5 % (42.0-52.0); HEMOGLOBIN 10.1 g/dl (14.0-18.0); MEAN CORPUSCULAR HEMOGLOBIN 28.3 pg (29.0-33.0); MEAN CORPUSCULAR HGB CONC 32.1 g/dl (32.0-37.0); MEAN CORPUSCULAR VOLUME 88.2 fl (82.0-101.0); MEAN PLATELET VOLUME 9.8 fl (7.4-10.4); MONOCYTE # 0.7 10^3/ul (0.3-0.9); MONOCYTES % 7.5 % (0.0-11.0); NEUTROPHIL # 7.1 10^3/ul (1.6-7.5); NEUTROPHILS % 71.6 % (39.0-77.0); PLATELET COUNT 342 10^3/UL (140-415); RED BLOOD COUNT 3.57 10^6/ul (4.70-6.10); RED CELL DISTRIBUTION WIDTH 15.2 % (11.5-14.5); WHITE BLOOD COUNT 9.9 10^3/ul (4.8-10.8)
[2017-01-24 08:09] LABS: MAGNESIUM 1.9 mg/dl (1.7-2.5); PHOSPHORUS 3.8 mg/dl (2.5-4.9)
[2017-01-24] MEDS ORDERED: DIGOXIN 500 MCG INJ IV ONE (09:00)
[2017-01-24] MEDS: MODAFINIL 200 MG TAB GTB SCH (09:00)
[2017-01-24 09:03] LABS: ALBUMIN 2.7 g/dl (3.3-4.9); ALBUMIN/GLOBULIN RATIO 0.79; CALCIUM 8.2 mg/dl (8.4-10.2); CREATININE 0.42 mg/dl (0.61-1.24); POTASSIUM 3.5 mmol/L (3.5-5.1); TOTAL PROTEIN 6.1 g/dl (6.1-8.1)
[2017-01-24 09:32] LABS: THYROID STIMULATING HORMONE 6.26 MIU/L (0.465-4.680)
--- NOTE | 2017-01-24 09:46 | PN ---
DATE: 01/24/2017 CARDIOLOGY FOLLOWUP PROGRESS NOTE SUBJECTIVE: Discussed with the staff. Rhythm strip was reviewed. The patient remains nonverbal st atus post trach. Still with apparently copious amount of secretions as discussed with our respirato ry therapist. The patient nonverbal ____ atrial fibrillation. He is still on Cardizem drip which w as started yesterday. MEDICATIONS: Reviewed as per medication reconciliation, personally reviewed. PHYSICAL EXAMINATION: VITAL SIGNS: Temperature 98.8, heart rate of 84, blood pressure 142/70, respiratory rate of 22, sat urating 96%. HEENT: Normocephalic, atraumatic. Status post tracheostomy, on T-tube ____. Eyes: Pupils are equ al. CARDIOVASCULAR: Irregularly irregular. Systolic murmur. PULMONARY: Diffuse rhonchi and wheezes. GASTROINTESTINAL: Soft, nontender. EXTREMITIES: With trivial edema. NEUROLOGIC: Appears to be awake, is not moving his right extremity. PSYCHIATRIC: Appears to be anxious now. LABORATORY: Digoxin level was 0.7 this morning. Glucose of 224. ASSESSMENT AND PLAN: 1. Atrial fibrillation with rapid ventricular response. 2. History of cerebrovascular accident many years ago and another cerebrovascular accident this yea r, appears to be hemorrhagic. 3. Hypoxemia and hypercapnic respiratory failure, status post tracheostomy. 4. Anemia. 5. Possible sepsis. 6. Abnormal EKG secondary to above. 7. History of hypertension. 8. Dyslipidemia. RECOMMENDATIONS: I will give an extra dose of digoxin now. Continue with a daily digoxin dose. We will monitor the digoxin level and give as needed extra doses. Cardizem will be continued. Beta b locker as tolerated will be continued. Respiratory care will be continued as tolerated and as per I D's recommendation. Trach care and aggressive suctioning will be continued as well. Monitor on tel emetry. Dictated By: KATHY LAFLEUR/NERY Conf#: [id number] DID#: [id number] CC: NAVEEN MAR DO;*EndCC*
--- NOTE | 2017-01-24 09:50 | PN ---
DATE: 01/24/2017 SUBJECTIVE: The patient is currently in atrial fibrillation with rapid rate on diltiazem drip. No other acute events noted. No hemoptysis, hematemesis, hematochezia. OBJECTIVE: VITAL SIGNS: blood pressure 142/70, respiration 18, pulse 86, temperature 98.8. HEENT: Head is normocephalic. NECK: Supple. HEART: He is currently in atrial fibrillation with rapid rate. LUNGS: Show diminished breath sounds at the base. ABDOMEN: Soft, nontender to palpation. No rebound or guarding. EXTREMITIES: Negative for clubbing, cyanosis. No edema. DERMATOLOGIC: No rashes. MUSCULOSKELETAL: No joint effusions. NEUROLOGIC: No change in exam. LABORATORY DATA: Currently pending. Laboratory data from 01/23/2017 was reviewed. On 01/24/2017 th e patient's white count 9.9, hemoglobin 10.1, hematocrit 31.5, platelet count 342. The patient's he moglobin A1c is 9.4. ASSESSMENT AND PLAN: 1. Sepsis, etiology secondary to urinary tract infection, possible bronchitis. The patient is curr ently on Zosyn. Blood cultures have been reviewed and negative to date. At this point, continue cu rrent treatment plan. Continue current antibiotic regimen. We will follow up with infectious disea se for further recommendations. The patient is also on antifungal therapy. We will follow up with ID. 2. Chronic respiratory failure, status post trach. Patient is currently stable on trach mask. We will continue. Continue nebulized therapy. 3. Atrial fibrillation, currently in rapid rate. The patient is on diltiazem drip. We will contin ue. The patient is not a candidate for full anticoagulation due to recent bleed. We will follow up with cardiology for further recommendations. 4. Acute on chronic encephalopathy. Etiology is toxic metabolic. The patient's mental status appe ars to be returning to baseline. Continue to monitor. 5. Dysphagia. Status post PEG tube, continue tube feeding. 6. Hypertension. Continue current blood pressure regimen. 7. Seizure disorder. Continue Keppra. 8. Coronary artery disease. Continue medical management. 9. Diabetes. Continue Accu-Cheks and sliding scale. 10. Benign prostatic hypertrophy. Continue Flomax. 11. Nonoliguric acute kidney injury, etiology secondary to hemodynamics. Renal function is improvi ng. Continue to monitor. 12. Anemia. Continue to monitor hemoglobin and hematocrit levels. 13. Gastrointestinal and deep venous thrombosis prophylaxis. Continue proton pump inhibitor and se quential leg squeezers. Dictated By: NAVEEN LAYTON/NERY Conf#: [id number] DID#: [id number]
[2017-01-24] MEDS: DOCUSATE SODIUM 10 MG/ML (10ML CUP) NGT SCH ×2 (10:19→20:39)
[2017-01-24] MEDS: LEVETIRACETAM 250 MG TAB PO SCH (10:19)
[2017-01-24] MEDS: TAMSULOSIN (SR) 0.4 MG CAP PO SCH (10:20)
[2017-01-24] MEDS: CHLORHEXIDINE GLUCONATE 15 ML UD CUP MM SCH ×2 (10:21→20:40)
[2017-01-24] MEDS: FINASTERIDE 5 MG TAB GTB SCH (10:21)
[2017-01-24] MEDS: MULTIVITAMINS THERAPEUTIC TAB GTB SCH (10:21)
[2017-01-24] MEDS: LISINOPRIL 10 MG TAB GTB SCH (10:22)
[2017-01-24] MEDS: FLUCONAZOLE 100 MG TAB PO SCH (12:53)
--- NOTE | 2017-01-24 15:24 | PN ---
DATE: 01/24/2017 SUBJECTIVE: No acute changes overnight. The patient was transferred out of ICU. He is lying comfo rtably in bed. No fevers. LABORATORY DATA: WBC 9.9, platelets 342, BUN 13, creatinine 0.52. MICROBIOLOGY: Blood culture negative. Urine culture growing yeast. DIAGNOSTICS: Chest x-ray revealed right basilar atelectasis. INDWELLINGS: Trach, PEG, [place]. PHYSICAL EXAMINATION: GENERAL: This is a fragile, chronically ill-appearing man who is in no distress. HEENT: Head atraumatic, normocephalic. Sclerae anicteric. Buccal mucosa dry. NECK: Supple, tracheostomy present. CHEST: Rise symmetrical. Breath sounds diminished to bases. HEART: S1, S2. ABDOMEN: Soft. Bowel sounds present. ASSESSMENT: 1. Recurrent urinary tract infection with urine culture growing yeast. 2. Atrial fibrillation with rapid ventricular response, cardiology on case. The patient is on Card izem. 3. Acute on chronic respiratory failure, possible pneumonia. 4. Dysphagia. 5. Seizure disorder. 6. Diabetes. PLAN: The patient is on fluconazole and Zosyn. Final cultures pending. We will follow chest x-ray in a.m. Dictated By: GUERO NEUMANN CARRIAGE OPERATOR for BIANCA GOINS/NERY Conf#: [id number] DID#: [id number]
[2017-01-24] MEDS: DIGOXIN 0.125 MG TAB GTB SCH (16:41)
--- NOTE | 2017-01-24 20:09 | CONS ---
DATE OF ADMISSION: 01/22/2017 DATE OF CONSULTATION: NEUROLOGICAL CONSULTATION Thank you, Dr. Cortez, for your kind referral for evaluation of encephalopathy , history of strokes, and necessity for anticoagulation. HISTORY OF PRESENT ILLNESS: The patient is a 71-year-old gentleman with history of stroke, not clear versus strokes, with chronic encephalopathy, chronic respiratory failure, status post tracheostomy, a history of dysphagia, history of seizure disorder, hypertension, benign prostatic hypertrophy, GERD, dyslipidemia, and atrial fibrillation who was admitted from alf facility for evaluation of fevers. Found to have urosepsis. According to today 's note, he also possibly has bronchitis, though seems to be at baseline clinically. His chest x-ray: Right bibasilar atelectasis, elevation of the right hemidiaphragm. Labs show hemoglobin 10, hematocrit 31, normal WBCs and platelets. Normal PT and PTT. Hemoglobin A1c 9.4. Sodium 131. Creatinine 0.42, calcium 8.2. BNP 932, albumin 2.7, elevated TSH. Blood gas was 7.48 2 days ago, pCO2 43, pO2 96. Urinalysis: WBCs 25 to 50, 1+ leukocyte esterase, protein. CURRENT MEDICATIONS: 1. Diflucan. 2. Lipitor 40. 3. Insulin. 4. Respiratory treatment. 5. Diltiazem. 6. Digoxin. 7. Finasteride. 8. Keppra 125 mg 2 times a day. 9. Zestril. 10. Tamsulosin. 11. Provigil 50 mg daily. 12. [place] p.r.n. 13. Prevacid. 14. Cardizem. 15. Lopressor. 16. ____. ALLERGIES: NONE. SOCIAL HISTORY: No alcohol, tobacco, drug use. Currently, a resident of alf facility. FAMILY HISTORY: Unknown. PHYSICAL EXAMINATION: VITAL SIGNS: Temperature 98.5, 105 pulse, 22 respirations, 129/64 blood pressure. GENERAL: Not in acute distress, lying in bed. HEENT: Normocephalic, atraumatic head. NECK: No carotid bruits. No thyromegaly. Status post tracheostomy. CARDIAC: Irregularly irregular cardiac rhythm. LUNGS: Clear to auscultation bilaterally. ABDOMEN: Soft, nontender. G-tube. EXTREMITIES: No cyanosis, clubbing, or edema. NEUROLOGIC: He is lethargic, but arousable by voice. At times looks bilaterally, but does not follow commands to me at least. Present response to visual threat bilaterally. Pupils about 3 mm, sluggish. Extraocular movements intact. Symmetrical face. Corneal reflexes present bilaterally as well as gag. Increased tone in bilateral upper extremities, worsening in the right upper extremity, trace movements in extremities to noxious stimuli, increased tone throughout. Deep tendon reflexes 2+ upper extremities, absent in lower extremities. Upgoing toes bilaterally. No resting tremor observed. IMPRESSION: Probably acute encephalopathy secondary to acute urinary tract infection. Baseline encephalopathy secondary to stroke/strokes. According to the primary doctor's note, no anticoagulation secondary to recent bleed. I am not sure if it was intracerebral hemorrhage or was other location bleeding. There is always increased risk of intracerebral bleeding complications in people with intracerebral bleeds in history, so I would recommend to continue current medications. He is not on antiplatelets, could be used. Reported history of seizures, on a very low dose of Keppra, probably 1/4 of the lowest working dose, but if patient has no problem and no seizures with such dose, okay to continue. Continue current treatment otherwise. Thank you very much for this interesting consultation. Dictated By: CRAOLINE LIMON/NERY Conf#: [id number] DID#: [id number] MTDD
[2017-01-24] MEDS: LEVETIRACETAM (100 MG/ML) 5ML CUP GTB SCH (20:39)
[2017-01-24] MEDS: ATORVASTATIN 40 MG TAB GTB SCH (20:40)
[2017-01-24] MEDS: INSULIN DETEMIR [LEVEMIR] 3ML CART SC SCH (20:43)
[2017-01-25] VITALS (12 sets, daily range): BP systolic 103–146; BP diastolic 58–86; PULSE 69–103; RESP 18–20
[2017-01-25] MEDS: SUCRALFATE 1 GM TAB GTB SCH ×5 (00:52→23:49)
[2017-01-25] MEDS: METOPROLOL 25 MG TAB GTB SCH ×5 (00:57→23:49)
[2017-01-25] MEDS: INSULIN ASPART [NOVOLOG] 3 ML PEN SC SCH ×6 (00:59→21:24)
[2017-01-25] MEDS: IPRATROPIUM (NEB) 0.5 MG/2.5 ML AMP HHN SCH ×4 (01:16→20:09)
[2017-01-25] MEDS: LEVALBUTEROL (NEB) 0.63 MG/3 ML AMP HHN SCH ×4 (01:16→20:10)
[2017-01-25] MEDS: PIPER-TAZO 3.375 GM IV (PMX) 100 ML IVPB SCH (06:06)
[2017-01-25] MEDS: LANSOPRAZOLE 30 MG CAP GTB SCH ×2 (06:08→19:14)
[2017-01-25] MEDS: DILTIAZEM 30 MG TAB GTB SCH ×3 (06:10→21:34)
[2017-01-25 07:04] LABS: ADD SCAN DIFF NO
[2017-01-25 07:11] LABS: BASOPHILS % 0.3 % (0.0-2.0); EOSINOPHILS # 0.1 10^3/ul (0.0-0.5); EOSINOPHILS % 1.1 % (0.0-7.0); HEMATOCRIT 30.1 % (42.0-52.0); HEMOGLOBIN 9.9 g/dl (14.0-18.0); LYMPHOCYTES # 1.9 10^3/ul (0.8-2.9); LYMPHOCYTES % 25.3 % (15.0-51.0); MEAN CORPUSCULAR HEMOGLOBIN 29.1 pg (29.0-33.0); MEAN CORPUSCULAR HGB CONC 32.9 g/dl (32.0-37.0); MEAN CORPUSCULAR VOLUME 88.5 fl (82.0-101.0); MEAN PLATELET VOLUME 9.4 fl (7.4-10.4); MONOCYTE # 0.6 10^3/ul (0.3-0.9); MONOCYTES % 7.4 % (0.0-11.0); NEUTROPHIL # 4.9 10^3/ul (1.6-7.5); NEUTROPHILS % 65.4 % (39.0-77.0); PLATELET COUNT 348 10^3/UL (140-415); RED CELL DISTRIBUTION WIDTH 15.2 % (11.5-14.5); WHITE BLOOD COUNT 7.5 10^3/ul (4.8-10.8)
[2017-01-25 07:32] LABS: ALBUMIN 2.6 g/dl (3.3-4.9); ALBUMIN/GLOBULIN RATIO 0.78; CALCIUM 8.2 mg/dl (8.4-10.2); CREATININE 0.42 mg/dl (0.61-1.24); POTASSIUM 3.7 mmol/L (3.5-5.1); TOTAL PROTEIN 5.9 g/dl (6.1-8.1)
[2017-01-25] MEDS ORDERED: SCOPOLAMINE 1.5 MG PATCH TRANSDERM SCH (08:30)
--- NOTE | 2017-01-25 08:39 | PN ---
DATE: 01/25/2017 CARDIOLOGY FOLLOWUP PROGRESS NOTE SUBJECTIVE: Discussed with the staff. Rhythm strip was reviewed. The patient remains in atrial fi brillation. Heart rate has been under good control. He is still status post tracheostomy with a la rge amount of secretions, apparently. MEDICATIONS: Reviewed as per medication reconciliation, was personally reviewed. PHYSICAL EXAMINATION: VITAL SIGNS: Temperature 97.8, heart rate of 60s to 80s mostly, blood pressure 137/72, respiratory rate of 18. HEENT: Normocephalic, atraumatic. Status post tracheostomy, on oxygen. Eyes: Pupils are equal. CARDIOVASCULAR: Irregularly irregular. Systolic murmur. PULMONARY: Mild rhonchi, diffuse. GASTROINTESTINAL: Soft, nontender. EXTREMITIES: Trivial edema. NEUROLOGIC: Awake, is unable to move his right extremity. PSYCHIATRIC: Appears to get agitated easily. LABORATORY: WBC of 7.5, hemoglobin 9.9, platelets of 348. Sodium 131, potassium 3.5, BUN of 13, cr eatinine 0.42, glucose of 174, albumin is 2.7. TSH was 6.2. ASSESSMENT AND PLAN: 1. Atrial fibrillation, chronic, on heart rate control. 2. Status post cerebrovascular accident. 3. Hypertension. 4. Hypoxemic respiratory failure status post tracheostomy, vent-dependent. 5. Status post sepsis, possible urinary tract infection and bronchitis/pneumonia. 6. History of seizure disorder, on Keppra. 7. Diabetes. 8. Severe anemia. RECOMMENDATIONS: Anticoagulation and/or antiplatelets as per neurology recommendations. We will co ntinue with the heart rate control with combination of beta char, Cardizem, and digoxin. Respira tory care will be continued. Antibiotic as per internal medicine. Dictated By: KATHY MITTAL MD AV/NERY Conf#: [id number] DID#: [id number] CC: NAVEEN MAR DO;*EndCC*
--- NOTE | 2017-01-25 08:55 | PN ---
DATE: 01/25/2017 SUBJECTIVE: The patient currently is off diltiazem drip, has been hemodynamically stable. No other events noted. No hemoptysis, hematemesis, or hematochezia. OBJECTIVE: VITAL SIGNS: Blood pressure is 103/59, respirations 19, pulse 61, temperature 97.8. HEENT: Head is normocephalic. NECK: Shows trach. HEART: Regular rate. LUNGS: Show diminished breath sounds at the base. ABDOMEN: Soft, nontender to palpation, no rebound or guarding. EXTREMITIES: Negative for clubbing, cyanosis, no edema. DERMATOLOGIC: No rashes. MUSCULOSKELETAL: No joint effusions. NEUROLOGIC: No change in exam. MEDICATIONS: The patient's medications have been reviewed. LABORATORY DATA: Shows a white count 7.5, hemoglobin 9.9, hematocrit of 30.1, platelet count is 348 . Sodium 133, potassium 3.7, chloride 98, BUN 14, creatinine 0.42. MEDICATIONS: The patient's medications have been reviewed. ASSESSMENT AND PLAN: 1. Sepsis, etiology is like secondary to urinary tract infection and bronchitis. The patient is cu rrently on Zosyn and Diflucan for funguria. We will continue current treatment plan. Follow up wit h infectious disease. 2. Chronic respiratory failure, status post tracheostomy. The patient is currently on a trache mas s. Continue nebulizers. Follow up with pulmonary. 3. Atrial fibrillation, currently rate controlled. Continue current medical management. The patie nt is not a candidate for full anticoagulation due to a recent bleed. I appreciate neurology evalua tion. Will follow up with cardiology recommendations. 4. Acute on chronic encephalopathy, etiology is toxic metabolic. The patient's mental status appea rs to be at baseline. 5. Dysphagia status post percutaneous endoscopic gastrostomy. Should continue tube feedings. 6. Hypertension. Continue current blood pressure regimen. 7. Seizure disorder. Continue Keppra. 8. Anemia. Continue to monitor H and H levels. 9. Coronary artery disease. Continue current treatment plan. 10. Diabetes. Continue current insulin regimen. We will adjust as needed. 11. BPH. Continue Flomax. 12. Status post nonoliguric acute kidney injury. 13. Mild hyponatremia. Will decrease free water flushes. 14. Gastrointestinal and deep venous thrombosis prophylaxis. Continue PPIs and sequential leg sque ezers. Dictated By: NAVEEN LAYTON/NERY Conf#: [id number] DID#: [id number]
[2017-01-25] MEDS: DOCUSATE SODIUM 10 MG/ML (10ML CUP) NGT SCH ×2 (09:36→21:19)
[2017-01-25] MEDS: LEVETIRACETAM (100 MG/ML) 5ML CUP GTB SCH ×2 (09:37→21:19)
[2017-01-25] MEDS: FINASTERIDE 5 MG TAB GTB SCH (09:38)
[2017-01-25] MEDS: MULTIVITAMINS THERAPEUTIC TAB GTB SCH (09:38)
[2017-01-25] MEDS: LISINOPRIL 10 MG TAB GTB SCH (09:38)
[2017-01-25] MEDS: TAMSULOSIN (SR) 0.4 MG CAP PO SCH (09:38)
[2017-01-25] MEDS: FLUCONAZOLE 100 MG TAB PO SCH (09:39)
[2017-01-25] MEDS: MODAFINIL 200 MG TAB GTB SCH (09:55)
[2017-01-25] MEDS: CHLORHEXIDINE GLUCONATE 15 ML UD CUP MM SCH ×2 (09:55→21:19)
[2017-01-25] MEDS: DIGOXIN 0.125 MG TAB GTB SCH (12:47)
--- NOTE | 2017-01-25 14:17 | CONS ---
Date/Time of Note Date/Time of Note DATE: 01/25/17 TIME: 14:15 Assessment/Plan Assessment/Plan Chief Complaint/Hosp Course SUBJECTIVE: No acute changes overnight, lying comfortably in bed. No fevers. MICROBIOLOGY: Blood culture negative. Urine culture growing yeast. DIAGNOSTICS: Chest x-ray revealed right basilar atelectasis. INDWELLINGS: Trach, PEG, Dubon. PHYSICAL EXAMINATION: GENERAL: This is a fragile, chronically ill-appearing man who is in no distress. HEENT: Head atraumatic, normocephalic. Sclerae anicteric. Buccal mucosa dry. NECK: Supple, tracheostomy present. CHEST: Rise symmetrical. Breath sounds diminished to bases. HEART: S1, S2. ABDOMEN: Soft. Bowel sounds present. ASSESSMENT: 1. Recurrent urinary tract infection with urine culture growing yeast. 2. Atrial fibrillation with rapid ventricular response, cardiology on case. The patient is on Cardizem. 3. Acute on chronic respiratory failure, possible pneumonia. 4. Dysphagia. 5. Seizure disorder. 6. Diabetes. PLAN: Stable, will dc Zosyn, continue Diflucan, f/u final cultures, neurology rec-s noted. DW staff Problems: Consultation Date/Type/Reason Admit Date/Time January 22, 2017 at 20:20 Initial Consult Date 01/23/17 Type of Consultation: ID Exam/Review of Systems Vital Signs Vitals Vital Signs Date Time Temp Pulse Resp B/P Pulse Ox O2 Delivery O2 Flow Rate FiO2 01/25/17 12:19 84 01/25/17 11:20 98.2 20 146/80 95 01/25/17 03:15 10.0 40 01/25/17 01:16 Aerosol T Tube Intake and Output 01/24/17 01/24/17 01/25/17 15:00 23:00 07:00 Intake Total 1040 ml 1100 ml Output Total 800 ml 500 ml Balance 240 ml 600 ml Results Result Diagram: 01/25/17 0632 01/25/17 0630 Results 24 hrs Laboratory Tests Test 01/24/17 17:57 01/24/17 20:29 01/25/17 00:56 01/25/17 06:02 Bedside Glucose 178 188 187 172 Test 01/25/17 06:30 01/25/17 06:32 01/25/17 09:34 01/25/17 12:26 Sodium Level 133 L Potassium Level 3.7 Chloride Level 98 Carbon Dioxide Level 27 Anion Gap 12 Blood Urea Nitrogen 14 Creatinine 0.42 L Glucose Level 170 Calcium Level 8.2 L Phosphorus Level 3.7 Magnesium Level 2.0 Total Bilirubin 0.0 L Direct Bilirubin 0.00 Indirect Bilirubin 0.0 Aspartate Amino Transf (AST/SGOT) 18 Alanine Aminotransferase (ALT/SGPT) 31 Alkaline Phosphatase 81 Total Protein 5.9 L Albumin 2.6 L Globulin 3.30 H Albumin/Globulin Ratio 0.78 White Blood Count 7.5 # Red Blood Count 3.40 L Hemoglobin 9.9 L Hematocrit 30.1 L Mean Corpuscular Volume 88.5 Mean Corpuscular Hemoglobin 29.1 Mean Corpuscular Hemoglobin Concent 32.9 Red Cell Distribution Width 15.2 H Platelet Count 348 Mean Platelet Volume 9.4 Neutrophils % 65.4 Lymphocytes % 25.3 Monocytes % 7.4 Eosinophils % 1.1 Basophils % 0.3 Nucleated Red Blood Cells % 0.0 Neutrophils # 4.9 Lymphocytes # 1.9 Monocytes # 0.6 Eosinophils # 0.1 Basophils # 0.0 Nucleated Red Blood Cells # 0.0 Bedside Glucose 143 168 Medications Medications Current Medications Atorvastatin Calcium (Lipitor) 40 mg QHS GTB Last administered on 01/24/17 20: 40; Admin Dose 40 MG; Start 01/23/17 at 21:00 Chlorhexidine Gluconate (Peridex) 15 ml Q12 MM Last administered on 01/25/17 09:55; Admin Dose 15 ML; Start 01/23/17 at 09:00 Digoxin (Digoxin) 0.125 mg DAILY@13 GTB Last administered on 01/25/17 12:47; Admin Dose 0.125 MG; Start 01/23/17 at 13:00 Finasteride (Proscar) 5 mg DAILY GTB Last administered on 01/25/17 09:38; Admin Dose 5 MG; Start 01/23/17 at 09:00 Furosemide (Lasix) 20 mg DAILY@06 GTB Last administered on 01/23/17 05:59; Admin Dose 20 MG; Start 01/23/17 at 06:00; Status Future Hold Lisinopril (Zestril) 10 mg DAILY GTB Last administered on 01/25/17 09:38; Admin Dose 10 MG; Start 01/23/17 at 09:00 Metoprolol Tartrate (Lopressor) 25 mg Q6 GTB Last administered on 01/25/17 12: 30; Admin Dose 25 MG; Start 01/23/17 at 00:00 Multivitamins Therapeutic (Theragran) 1 tab DAILY GTB Last administered on 01/25 09:38; Admin Dose 1 TAB; Start 01/23/17 at 09:00 Sucralfate (Carafate) 1 gm Q6 GTB Last administered on 01/25/17 12:30; Admin Dose 1 GM; Start 01/23/17 at 00:00 Tamsulosin HCl (Flomax) 0.4 mg DAILY PO Last administered on 01/25/17 09:38; Admin Dose 0.4 MG; Start 01/23/17 at 09:00 Lansoprazole (Prevacid) 30 mg BID@18 GTB Last administered on 01/25/17 06: 08; Admin Dose 30 MG; Start 01/23/17 at 06:00 Acetaminophen (Tylenol Liquid) 650 mg Q4H PRN GTB PAIN AND OR ELEVATED TEMP; Start 01/23/17 at 01:00 Modafinil (Provigil) 50 mg DAILY GTB Last administered on 01/25/17 09:55; Admin Dose 50 MG; Start 01/23/17 at 09:00 Diltiazem HCl (Cardizem) 90 mg Q8 GTB Last administered on 01/25/17 06:10; Admin Dose 90 MG; Start 01/23/17 at 06:00 Miscellaneous Information (Pending [facility] Order For Wound Care) This patient horowitz... PRN PRN XX WOUND CARE; Start 01/23/17 at 08:30 Miscellaneous Information 1 ea NOTE XX ; Start 01/23/17 at 08:30 Glucose (Glutose) 15 gm Q15M PRN PO DECREASED GLUCOSE; Start 01/23/17 at 08:30 Glucose (Glutose) 22.5 gm Q15M PRN PO DECREASED GLUCOSE; Start 01/23/17 at 08: 30 Dextrose (D50w Syringe) 25 ml Q15M PRN IV DECREASED GLUCOSE; Start 01/23/17 at 08:30 Dextrose (D50w Syringe) 50 ml Q15M PRN IV DECREASED GLUCOSE; Start 01/23/17 at 08:30 Glucagon (Glucagen) 1 mg Q15M PRN IM DECREASED GLUCOSE; Start 01/23/17 at 08:30 Glucose 15 gm 15 gm Q15M PRN BUCCAL DECREASED GLUCOSE; Start 01/23/17 at 08:30 Piperacillin Sod/ Tazobactam Sod (Zosyn 3.375gm/ 100 ml (Pmx)) 100 ml @ 200 mls /hr Q8 IVPB Last administered on 01/25/17 06:06; Admin Dose 200 MLS/HR; Start 01/23/17 at 08:15 Acetaminophen/ Hydrocodone Bitart ([place] (5/325)) 1 tab Q4 PRN GTB PAIN; Start 01/23/17 at 09:00 Magnesium Hydroxide (Milk Of Mag) 30 ml Q24H PRN GTB CONSTIPATION; Start at 00:00 Docusate Sodium (Colace Liquid Cup) 100 mg BID NGT Last administered on 09:36; Admin Dose 100 MG; Start 01/23/17 at 09:00 Bisacodyl 10 mg 10 mg Q48H PRN NV CONSTIPATION; Start 01/23/17 at 09:00 Diltiazem HCl (Cardizem-D5W 125 Mg/125 ml Drip) 125 ml @ 5 mls/hr TITRATE IV Last administered on 01/24/17 18:00; Admin Dose 5 MLS/HR; Start 01/23/17 at 16: 30 Insulin Detemir (Levemir) 30 unit HS SC Last administered on 01/24/17 20:43; Admin Dose 30 UNIT; Start 01/23/17 at 21:00 Insulin Aspart (Novolog Insulin Pen) NOVOLOG *MODERATE* ALGORI... Q4 SC Last administered on 01/25/17 12:43; Admin Dose 2 UNIT; Start 01/23/17 at 21:00 Fluconazole (Diflucan) 100 mg DAILY PO Last administered on 01/25/17 09:39; Admin Dose 100 MG; Start 01/24/17 at 11:00 Levetiracetam (Keppra Liquid) 125 mg BID GTB Last administered on 01/25/17 09: 37; Admin Dose 125 MG; Start 01/24/17 at 21:00 Scopolamine (Transderm-Scop) 1 patch Q72H TRANSDERM Last administered on t 09:38; Admin Dose 1 PATCH; Start 01/25/17 at 08:30 GUREO NEUMANN NP January 25, 2017 14:17
[2017-01-25] MEDS: ATORVASTATIN 40 MG TAB GTB SCH (21:19)
[2017-01-25] MEDS: INSULIN DETEMIR [LEVEMIR] 3ML CART SC SCH (21:22)
[2017-01-26] VITALS (14 sets, daily range): BP systolic 135–154; BP diastolic 72–92; PULSE 82–188; RESP 18–20
[2017-01-26] MEDS: INSULIN ASPART [NOVOLOG] 3 ML PEN SC SCH ×3 (00:58→10:06)
[2017-01-26] MEDS: IPRATROPIUM (NEB) 0.5 MG/2.5 ML AMP HHN SCH ×3 (01:17→14:00)
[2017-01-26] MEDS: LEVALBUTEROL (NEB) 0.63 MG/3 ML AMP HHN SCH ×3 (01:17→14:00)
[2017-01-26] MEDS: SUCRALFATE 1 GM TAB GTB SCH (05:35)
[2017-01-26] MEDS: LANSOPRAZOLE 30 MG CAP GTB SCH (05:35)
[2017-01-26] MEDS: METOPROLOL 25 MG TAB GTB SCH ×2 (05:35→12:44)
[2017-01-26] MEDS: DILTIAZEM 30 MG TAB GTB SCH ×2 (05:36→17:29)
[2017-01-26 07:09] LABS: CALCIUM 8.4 mg/dl (8.4-10.2); CREATININE 0.4 mg/dl (0.61-1.24)
--- NOTE | 2017-01-26 08:37 | PN ---
DATE: 01/26/2017 CARDIOLOGY FOLLOWUP PROGRESS NOTE SUBJECTIVE: Discussed with the staff. Rhythm strip was reviewed. The patient remains in atrial fi brillation. Heart rate remained in very good control now. The patient is seen with copious amount of secretions status post trach. MEDICATIONS: Reviewed. PHYSICAL EXAMINATION: VITAL SIGNS: Temperature 98.6, heart rate of 78, blood pressure 142/72, respiration rate 18, satura ting 99%. HEENT: Normocephalic, atraumatic. NECK: Status post tracheostomy, on oxygen. CARDIOVASCULAR: Irregularly irregular, systolic murmur. PULMONARY: Mild rhonchi, diffuse. GASTROINTESTINAL: Soft, nontender. EXTREMITIES: No significant edema. NEUROLOGIC: Awake with right-sided weakness. PSYCHIATRIC: Appears to be calm. LABORATORY: Shows sodium 132, potassium 4, BUN of 15, creatinine 0.4, glucose of 234. ASSESSMENT AND PLAN: 1. Atrial fibrillation with rapid ventricular response, currently heart rate under good control. 2. Status post cerebrovascular accident. 3. Hypertension. 4. Hypoxemic ____ respiratory failure status post tracheostomy. 5. Status post sepsis, urinary tract infection, possible pneumonia 6. History of seizure disorder, on Keppra. 7. Diabetes. 8. Anemia. RECOMMENDATIONS: Followup neurology recommendation regarding antiplatelet, anticoagulant. Given th e patient's history of hemorrhagic stroke as well as atrial fibrillation with previous history of st rokes. Heart rate is currently under control on the current regimen of Cardizem, digoxin, and metop rolol. We will continue the current regimen. Respiratory care and pulmonary care as per pulmonolog ist. Antibiotic as per internal medicine and ID. Dictated By: KATHY MITTAL MD AV/NERY Conf#: [id number] DID#: [id number] CC: NAVEEN MAR DO;*EndCC*
[2017-01-26] MEDS ORDERED: ASPIRIN 81 MG TAB GTB SCH (09:00)
[2017-01-26] MEDS: MODAFINIL 200 MG TAB GTB SCH (09:00)
--- NOTE | 2017-01-26 09:04 | DS ---
DATE OF ADMISSION: 01/22/2017 DATE OF DISCHARGE: HOSPITAL COURSE: This is a 71-year-old male with a past medical history of CVA, hemorrhagic, a hist ory of chronic encephalopathy, a history of chronic respiratory failure, status post tracheostomy, a history of dysphagia, a history of seizure disorder, hypertension, atrial fibrillation, BPH, GERD, and dyslipidemia who presented to [facility] for underlying fever. The patient was subsequ ently admitted to telemetry. While on telemetry the patient was seen by infectious disease speciali st, Dr. Parra, and co teacher, Dr. Briones. In terms of the patient's sepsis, etiology was second yudy to a fungal urinary tract infection. The patient's urine cultures grew out yeast. The patient was placed on antifungal therapy by infectious disease and the patient has appropriately defervesced . The patient has also completed a 7-day course of IV antibiotics. The patient was also noted to b e in atrial fibrillation with a rapid rate during the hospital course and his medications were adjus ember, currently rate controlled. The patient was also seen by Dr. Manjarrez for evaluation of whether or not the patient can be resumed on anticoagulation therapy given the fact the patient had a recent h emorrhagic CVA. Given the risks and benefits of a recurrent hemorrhagic bleed, the decision was mad e to not do full anticoagulation and to place the patient on aspirin. I discussed this case with th e patient's daughter, who agreed. She is also aware that there is a potential for a possible CVA, a s the patient is not fully anticoagulated, but agrees that the risk of a repeat intracranial hemorrh age is greater than the benefit of anticoagulation. The patient's other medical problems including dysphagia, hypertension, seizure disorder, anemia, coronary artery disease, and BPH have been contro lled during the hospital course. The patient was noted to be hypoglycemic as well and her diabetic medications have been adjusted. Currently at this time the patient is stable and at baseline and wi ll be [facility]. FINAL DIAGNOSES: 1. Sepsis secondary to fungal urinary tract infection and bronchitis. The patient has completed an antibiotic course and will finish antifungal therapy. 2. Chronic respiratory failure, status post trach. 3. Atrial fibrillation. Rate controlled. 4. Acute on chronic encephalopathy. 5. Dysphagia. 6. Hypertension. 7. Seizure disorder. 8. Anemia. 9. Coronary artery disease. 10. Diabetes. 11. Benign prostatic hypertrophy. 12. Status post acute kidney injury. 13. Mild hyponatremia. At the time of discharge, the patient is stable and in no acute distress. FINAL MEDICATIONS: See reconciliation list. Please note, I spent over 40 minutes of time preparing the patient's discharge. Dictated By: NAVEEN LAYTON/NERY Conf#: [id number] DID#: [id number]
[2017-01-26] MEDS: LEVETIRACETAM (100 MG/ML) 5ML CUP GTB SCH (09:56)
[2017-01-26] MEDS: FLUCONAZOLE 100 MG TAB PO SCH (10:00)
[2017-01-26] MEDS: FINASTERIDE 5 MG TAB GTB SCH (10:00)
[2017-01-26] MEDS: DOCUSATE SODIUM 10 MG/ML (10ML CUP) NGT SCH (10:00)
[2017-01-26] MEDS: LISINOPRIL 10 MG TAB GTB SCH (10:01)
[2017-01-26] MEDS: TAMSULOSIN (SR) 0.4 MG CAP PO SCH (10:02)
[2017-01-26] MEDS: MULTIVITAMINS THERAPEUTIC TAB GTB SCH (10:06)
[2017-01-26] MEDS: DIGOXIN 0.125 MG TAB GTB SCH (12:44)
--- NOTE | 2017-01-26 19:03 | CONS ---
Date/Time of Note Date/Time of Note DATE: 01/26/17 TIME: 19:02 Assessment/Plan Assessment/Plan Chief Complaint/Hosp Course SUBJECTIVE: No acute changes overnigh. No fevers. MICROBIOLOGY: Blood culture negative. Urine culture yeast DIAGNOSTICS: Chest x-ray revealed right basilar atelectasis. INDWELLINGS: Trach, PEG, Dubon. PHYSICAL EXAMINATION: GENERAL: This is a fragile, chronically ill-appearing man who is in no distress. HEENT: Head atraumatic, normocephalic. Sclerae anicteric. Buccal mucosa dry. NECK: Supple, tracheostomy present. CHEST: Rise symmetrical. Breath sounds diminished to bases. HEART: S1, S2. ABDOMEN: Soft. Bowel sounds present. ASSESSMENT: 1. Recurrent urinary tract infection with urine culture growing yeast. 2. Atrial fibrillation with rapid ventricular response, cardiology on case. The patient is on Cardizem. 3. Acute on chronic respiratory failure, possible pneumonia. 4. Dysphagia. 5. Seizure disorder. 6. Diabetes. PLAN: Remains stable, continue Diflucan, vent per pulmonary. DW staff Problems: Consultation Date/Type/Reason Admit Date/Time January 22, 2017 at 20:20 Initial Consult Date 01/23/17 Type of Consultation: ID Exam/Review of Systems Vital Signs Vitals Vital Signs Date Time Temp Pulse Resp B/P Pulse Ox O2 Delivery O2 Flow Rate FiO2 01/26/17 17:22 151 01/26/17 14:53 98.3 18 154/92 96 01/26/17 08:41 Aerosol 10.0 40 Intake and Output 01/25/17 01/25/17 01/26/17 15:00 23:00 07:00 Intake Total 1040 ml 1040 ml Output Total 500 ml 750 ml Balance 540 ml 290 ml Results Result Diagram: 01/25/17 0632 01/26/17 0515 Results 24 hrs Laboratory Tests Test 01/25/17 19:15 01/25/17 21:05 01/26/17 00:54 01/26/17 05:15 Bedside Glucose 158 184 242 H Sodium Level 132 L Potassium Level 4.0 Chloride Level 96 L Carbon Dioxide Level 29 Anion Gap 11 Blood Urea Nitrogen 15 Creatinine 0.40 L Glucose Level 234 H Calcium Level 8.4 Test 01/26/17 05:29 01/26/17 09:42 Bedside Glucose 240 H 282 H GUERO NEUMANN NP January 26, 2017 19:03
== END 2017-01-26 18:08 | DRG 871 ==
LOC: E/R 18:44 → ICU 20:20 → TEL 01-23 20:53
PROVIDERS: ADMIT Internal Medicine Nephrology; ATTEND Internal Medicine Nephrology
DX: A41.9 Sepsis, unspecified organism (principal); G92 Toxic encephalopathy; N17.9 Acute kidney failure, unspecified; J96.11 Chronic respiratory failure with hypoxia; J96.12 Chronic respiratory failure with hypercapnia; R13.10 Dysphagia, unspecified; I48.2 Chronic atrial fibrillation; B37.49 Other urogenital candidiasis; Z93.0 Tracheostomy status; E87.1 Hypo-osmolality and hyponatremia; E78.5 Hyperlipidemia, unspecified; G40.909 Epilepsy, unspecified, not intractable, without status epilepticus; K21.9 Gastro-esophageal reflux disease without esophagitis; N40.1 Benign prostatic hyperplasia with lower urinary tract symptoms; R33.8 Other retention of urine; D63.8 Anemia in other chronic diseases classified elsewhere; E11.9 Type 2 diabetes mellitus without complications; I25.10 Atherosclerotic heart disease of native coronary artery without angina pectoris; Z79.4 Long term (current) use of insulin; Z93.1 Gastrostomy status; Z74.01 Bed confinement status; Z86.73 Personal history of transient ischemic attack (TIA), and cerebral infarction without residual deficits
CPT/HCPCS: 36415; 36600; 71010; 80048; 80053; 80162; 81001; 81003; 82803; 82962; 83036; 83605; 83735; 83880; 84100; 84145; 84439; 84443; 84484; 85025; 85610; 85730; 87040; 87081; 87086; 93005; 94640; 94664; 96365; 96366; J0696; J1815; J2543; J7030; J7042

== ENCOUNTER 2017-08-20 12:59 | Inpatient (IN) | payer MEDICARE, OTHER ==
[~2017-08-20] VITALS: Ht 175.3 cm; Wt 85.5 kg
[~2017-08-20 12:59] MED LIST: ACET-2047 G-TUBE; ACET325T45 G-TUBE; AMIN30LI G-TUBE; ATOR40TA68 G-TUBE; BISA10SU55 RC; CARSR90 G-TUBE; CHLO473M4 MM; DIGO125T6 G-TUBE; DOCU-159 GTB; FINA5TAB4 G-TUBE; FLUC200T52 G-TUBE; FURO20TA3 G-TUBE; HYDR-906 G-TUBE; LEVE250T66 G-TUBE; LEVEM SC; LISI10TA2 G-TUBE; MAGN400O4 G-TUBE; METF500T4 PO; METO-448 G-TUBE; MODA100T10 G-TUBE; MULTI G-TUBE; NOVO3I SC; OMEP20CA16 G-TUBE; SUCR1TAB56 G-TUBE; TAMS-14 G-TUBE
[2017-08-20] MEDS ORDERED: SODIUM CHLORIDE 0.9% 1L BAG IV* STA (13:46)
--- NOTE | 2017-08-20 13:53 | ERD ---
ER Documentation Chief Complaint Chief Complaint fever and high blood sugars since today. sent by pmd for further eval HPI 72-year-old man brought in by EMS from senior living for 1 day of fever. Temperature was about 103F. HPI limited as patient was nonverbal, supplemented by reviewing past medical history, senior living records, speaking to EMS, and nursing staff. ROS All systems reviewed and are negative except as per history of present illness. Medications Home Meds Reported Medications Acetaminophen* (Acetaminophen*) 650 Mg Tablet, 650 MG G-TUBE Q4H WHILE AWAKE Y for PAIN AND OR ELEVATED TEMP, #30 TAB GIVE 650MG VIA G-TUBE EVERY 4HOURS NEEDED FOR TEMPERATURE MORE THAN 100 DEGREES FAHRENHEIGHT RELATED TO CHRONIC RESPIRATORY FAILURE, UNSPECIFIED WHETHER WITH HYPOXIA ORHYPERCAPNIA FOR 2 WEEKS NOT TO EXCEED 3 GRAMS ACETAMINOPHEN/24 HRS X 2 WEEKS 01/22/17 Acetaminophen* (Acetaminophen*) 325 Mg Tablet, 650 MG G-TUBE Q4H Y for PAIN, # 30 TAB GIVE 2 TABLETS VIA G-TUBEEVERY 4 HOURS NEEDED FOR MILD DISCOMPFORT, DOCUMENT PAIN USING SCALE 0-10/10 PRE & POST MED WHEN GIVEN. (NOT TO EXCEED 3 GRAMS ACETAMINOPHEN/24 HOURS) 01/22/17 Modafinil* (Provigil*) 100 Mg Tablet, 50 MG G-TUBE DAILY for NARCOLEPSY, TAB 01/22/17 Amino Acids/Protein Hydrolys (PRO-STAT LIQUID) 30 Ml Liquid.pkt, 30 ML G-TUBE for SUPPLEMENT 01/22/17 Chlorhexidine Gluconate (Peridex) 473 Ml Mouthwash, 15 ML MM Q12 for ORAL HYGIENE SWAB & SUCTION, BOTTLE 01/22/17 Omeprazole* (Omeprazole*) 20 Mg Capsule.dr, 20 MG G-TUBE BID for GERD, #60 CAP 01/22/17 Insulin Aspart* (Novolog Insulin Pen*) 100 Unit/Ml Soln, 0 SC .SLIDING SCALE AC , EA INJECT PER SLIDING SCALE: 0-120=0;121-150=0; 151-200=2; 201-250=4; 251-300=6; 301-350=8; 351-400=10 ABOVE 400=12, CALL MD IF BSIS ABOVE 400 OR BELOW 60, SUBCUTANEOUSLY EVERY 6 HRS RELATED TO TYPE 2 DIABETES MELLITUS WITHOUT COMPLICATIONS. 01/22/17 Hydrocodone/Acetaminophen ([place] 5-325 Tablet) 1 Each Tablet, 1 EACH G-TUBE Q4 for PAIN LEVEL 1-5, TAB DOCUMENT PAIN USING SCALE 0-10/10 PRE & POST MED WHEN GIVEN(NOT TO EXCEED 3 GRAMS ACWTAMINOPHEN /24HOURS) 01/22/17 Multivitamins* (Theragran*) 1 Tab Tab, 1 TAB G-TUBE DAILY for WOUND HEALING, TAB 01/22/17 Magnesium Hydroxide* (Milk Of Magnesia*) 400 Mg/5 Ml Oral.susp, 30 ML G-TUBE Q24H for CONSTIPATION, ML 01/22/17 Metoprolol Tartrate* (Lopressor*) 25 Mg Tab, 25 MG G-TUBE Q6 for ESSENTIAL PRIMARY HTN, #60 TAB 01/22/17 Metformin* (Glucophage*) 500 Mg Tab, 500 MG PO WITH BREAKFAST DINNE for TYPE 2 DIABETES, #30 TAB 01/22/17 Lisinopril* (Lisinopril*) 10 Mg Tablet, 10 MG G-TUBE DAILY for HTN, #30 TAB 01/22/17 Insulin Detemir (Levemir) 100 Unit/1 Ml Vial, 15 UNIT SC Q12 for TYPE 2 DIABETES , VIAL INJECT 15 UNITS SC EVERY 12 HOURS RELATED TO TYPE 2 DIABETES MELLITUS WITHOUT COMPLICATIONS 01/22/17 Insulin Detemir (Levemir) 100 Unit/1 Ml Vial, 11 UNIT SC Q12 for TYPE 2 DIABETES MELLITUS, VIAL RELATED TO TYPE 2 DIABETES MELLITUS WITHOUT COMPLICATIONS 01/22/17 Furosemide* (Furosemide*) 20 Mg Tablet, 20 MG G-TUBE DAILY for HEAR FAILURE, # 60 TAB 01/22/17 Levetiracetam* (Keppra*) 250 Mg Tab, 125 MG G-TUBE Q12 for EPILEPSY, TAB FOR EPILEPSY, UNSPECIFIED, NOT INTRACTABLE, WIHOUT STATUS EPILPTICUS 01/22/17 Tamsulosin Hcl* (Flomax*) 0.4 Mg Cap.er.24h, 0.4 MG G-TUBE DAILY for URINARY RETENTION, CAP 01/22/17 Finasteride* (Finasteride*) 5 Mg Tablet, 5 MG G-TUBE DAILY for BENIGN PROSTATIC HYPERPLESIA, TAB FOR BENIGN PROSTATIC HYPERPLESIAW/OUT LOWER URINARY TRACT SYMPTOMS. WEAR GLOVES WHEN HANDLING TABLETS 01/22/17 Bisacodyl (Dulcolax) 10 Mg Supp.rect, 10 MG RC Q48PRN for CONSTIPATION, SUPP.RECT 01/22/17 Diltiazem Hcl* (Cardizem SR*) 90 Mg Capsr, 90 MG G-TUBE Q8 for HTN, #60 CAP 01/22/17 Digoxin* (Lanoxin*) 0.125 Mg Tablet, 0.125 MG G-TUBE DAILY for UNSPECIFIED ATRIAL FIBRILLATIO, TAB HOLD FOR HR BELOW 65 01/22/17 Fluconazole* (Fluconazole*) 200 Mg Tablet, 200 MG G-TUBE DAILY for UTI, TAB GIVE 1 TABLET VIA G-TUBE ONE TIME DAILY FOR UTI FOR 5 DAYS START DATE 01/16/17 01/22/17 Docusate Sodium* (Docusate Sodium*) 100 Mg Capsule, 100 MG GTB BID for CONSTIPATION, #60 CAP 01/22/17 Sucralfate* (Carafate*) 1 Gm Tab, 1 GM G-TUBE Q6 for GI PROPHYLAXIS, TAB 01/22/17 Atorvastatin* (Atorvastatin*) 40 Mg Tablet, 40 MG G-TUBE QHS for HYPERLIPIDEMIA , #30 TAB 01/22/17 Allergies Allergies: Coded Allergies: No Known Allergy (Unverified , 11/02/16) PMhx/Soc Cerebral infarction, comatose, dysphagia, gastrostomy tube, tracheostomy tube, respiratory failure, epilepsy, DVT, hypertension, diabetes mellitus, asthma, hyperlipidemia, atrial fibrillation, BPH, UTIs, buttock pressure ulcerations Anesthesia Reaction: No Hx Respiratory Disorders: Yes (CHRONIC TRACH) Hx Miscellaneous Medical Probl: Yes (GERD, TRACH/G-TUBE) FmHx Family History: No diabetes Physical Exam Vitals Vital Signs Date Time Temp Pulse Resp B/P Pulse Ox O2 Delivery O2 Flow Rate FiO2 08/20/17 15:33 157 21 100 40 08/20/17 14:55 134 16 157/111 100 Mechanical Ventilator 08/20/17 13:49 103.8 185 26 154/84 99 08/20/17 13:30 104 23 98 40 Physical Exam GENERAL: Elderly, chronically debilitated man, encephalopathic, unresponsive, febrile HEENT: Dry mucous membranes, pink conjunctiva, tracheostomy tube in place NEURO: Nonverbal, pupils equal round reactive to light, eyes closed, flaccid extremities CARDIAC: Tachycardic and regular, no murmurs rubs or gallops LUNGS: Clear bilaterally no wheezing crackles or stridor ABDOMEN: Soft nontender, no guarding, no rigidity, no rebound, no psoas sign no obturator sign. SKIN: Hot and dry to touch, no abrasions, contusions, or hematomas, no lacerations, no ecchymosis, no target lesions, and without ulcers EXTREMITIES: No clubbing cyanosis or edema, calves are bilaterally symmetrical, no Homans sign, no popliteal cord sign. Distal pulses equal and bilateral PSYCH: Unable to assess Result Diagram: 08/20/17 1409 08/20/17 1409 Results 24 hrs Laboratory Tests Test 08/20/17 14:09 08/20/17 14:45 White Blood Count 16.010^3/ul Red Blood Count 4.6010^6/ul Hemoglobin 12.5g/dl Hematocrit 40.3% Mean Corpuscular Volume 87.6fl Mean Corpuscular Hemoglobin 27.2pg Mean Corpuscular Hemoglobin Concent 31.0g/dl Red Cell Distribution Width 17.4% Platelet Count 77817^3/UL Mean Platelet Volume 11.3fl Neutrophils % 56.6% Lymphocytes % 29.5% Monocytes % 12.9% Eosinophils % 0.0% Basophils % 0.4% Nucleated Red Blood Cells % 0.1/100WBC Neutrophils # 9.110^3/ul Lymphocytes # 4.710^3/ul Monocytes # 2.110^3/ul Eosinophils # 0.010^3/ul Basophils # 0.110^3/ul Nucleated Red Blood Cells # 0.010^3/ul Prothrombin Time 14.2Sec Prothrombin Time Ratio 1.1 INR International Normalized Ratio 1.09 Activated Partial Thromboplast Time 29.3Sec Sodium Level 148mmol/L Potassium Level 4.4mmol/L Chloride Level 108mmol/L Carbon Dioxide Level 27mmol/L Anion Gap 17 Blood Urea Nitrogen 51mg/dl Creatinine 1.21mg/dl Glucose Level 550mg/dl Lactic Acid Level 6.0mmol/L Calcium Level 9.2mg/dl Total Bilirubin 0.2mg/dl Direct Bilirubin 0.00mg/dl Indirect Bilirubin 0.2mg/dl Aspartate Amino Transf (AST/SGOT) 21IU/L Alanine Aminotransferase (ALT/SGPT) 32IU/L Alkaline Phosphatase 85IU/L Troponin I 0.141ng/ml Total Protein 7.5g/dl Albumin 3.8g/dl Globulin 3.70g/dl Albumin/Globulin Ratio 1.02 Lipase 479U/L Urine Color YELLOW Urine Clarity SLIGHTLY CLOUDY Urine pH 5.0 Urine Specific [place] 1.028 Urine Ketones TRACEmg/dL Urine Nitrite NEGATIVEmg/dL Urine Bilirubin NEGATIVEmg/dL Urine Urobilinogen NEGATIVEmg/dL Urine Leukocyte Esterase 2+Marisa/ul Urine Microscopic RBC 34/HPF Urine Microscopic WBC 85/HPF Urine Yeast (Budding) MANY/HPF Urine Hemoglobin NEGATIVEmg/dL Urine Glucose 3+mg/dL Urine Total Protein 3+mg/dl Current Medications Medications (Trade) Dose Ordered Sig/Noelle Route PRN Reason Start Time Stop Time Status Last Admin Dose Admin Sodium Chloride (NS) 3,000 ml BOLUS OVER 2 HOURS STAT IV* 08/20/17 13:46 08/20/17 13:52 DC 08/20/17 14:15 Acetaminophen (Tylenol Tab) 650 mg ONCE ONCE PO 08/20/17 14:00 08/20/17 14:01 DC 08/20/17 14:16 Acetaminophen 650 mg 650 mg ONCE ONCE OR 08/20/17 14:00 08/20/17 14:01 DC Cefepime HCl 50 ml @ 100 mls/hr ONCE ONCE IVPB 08/20/17 14:00 08/20/17 14:29 DC 08/20/17 14:16 Vancomycin HCl (Vancocin) 250 ml @ 125 mls/hr ONCE IVPB 08/20/17 14:00 08/20/17 15:59 DC 08/20/17 14:53 Diltiazem HCl (Cardizem Iv) 20 mg ONCE ONCE IV 08/20/17 14:30 08/20/17 14:31 DC 08/20/17 14:16 Diltiazem HCl 20 mg 20 mg ONCE ONCE IV 08/20/17 14:30 08/20/17 14:31 DC 08/20/17 14:35 Cefepime HCl 50 ml @ 100 mls/hr ONCE ONCE IVPB 08/20/17 15:30 08/20/17 15:59 DC Vancomycin HCl 250 ml @ 125 mls/hr ONCE IVPB 08/20/17 15:30 08/20/17 17:29 Sodium Chloride 1,000 ml @ 2,000 mls/hr Q30M ONCE IV 08/20/17 15:30 08/20/17 15:59 DC 08/20/17 16:24 Diltiazem HCl (Cardizem-D5W 125 Mg/125 ml Drip) 125 ml @ 5 mls/hr TITRATE IV 08/20/17 16:30 Diltiazem HCl (Cardizem Iv) 20 mg ONCE ONCE IV 08/20/17 16:30 08/20/17 16:31 DC 08/20/17 16:29 Procedures/MDM IV line was established patient was placed on monitoring tech rhythm strip revealed a narrow complex tachycardia at 180 bpm. Patient was febrile, Dubon catheter was placed, blood and urine cultures were ordered results are pending I will follow-up. Patient was extremely tachycardic I suspected atrial fibrillation with RVR. He was given acetaminophen per gastrostomy tube for fever as well as 4 L normal saline intravenously for suspected sepsis. I treated him here with cefepime 1 g IV and vancomycin 1 g IV. EKG performed, read by me revealed an atrial with rapid ventricular rate at about 200 bpm, normal axis, narrow QRS complex, no concerning ST elevations noted. There are rate related ST changes. Chest X-ray 1V Interpreted by me: Soft Tissue: No acute abnormalities Bones: No acute abnormalities Mediastinum/Cardiac Silhouette/Lungs: Tracheostomy tube in place. I administered diltiazem 20 mg IV 2 for A. fib RVR this would improve his rate temporarily he had to be given a third dose of diltiazem 20 mg followed by diltiazem drip. Patient was later found to have a low elevation in troponin and I suspect rate related demand ischemia, making rate control extremely important. CBC reveals a leukocytosis of 16, electrolytes revealed dehydration with BUN/ creatinine 51/1.2, blood sugar initially elevated at 550, liver function tests normal, troponin positive at 0.14. Lactic acid elevated at 6, urine analysis positive for infection. Patient's infectious symptoms have not stabilized and the patient is at risk of rapid decompensation. The patient will be admitted for careful hydration, antibiotic therapy, and infectious source control. Severe Sepsis Assessment: Infectious Source: Urinary tract infection End organ damage indicated by: Lactic acid elevated at 6 and troponin is 0.14 Severe Sepsis Managment: Blood Cultures X 2 before broad spectrum antibiotics initiated within 3 hours of recognition. 30 ml/kg NS bolus Completed Initial Lactate: Elevated at 6 Repeat Lactate pending Critical Care: Time: 53 minutes, this was time separate from billable procedures Treatments/Evaluations: Emergent fluid management, while maintaining close respiratory support. Immediate broad spectrum antibiotic therapy. Simultaneous assessment for possible sources in order to direct therapy. Consideration for invasive and chemical support to prevent respiratory or cardiac collapse. Septic Shock Assessment (1 hour post 30 ml/kg fluid bolus): Hypotension (SBP < 90 or 40 mmHg drop, MAP < 65): No Lactic acid > 4.0 yes Perfusion Reassessment for Septic Shock: Temp 99.9, pulse 120 bpm, respiratory rate 18 breaths per minute, blood pressure 140/70 Heart Exam: Tachycardic Lung Exam: No Crackles Capillary Refill: Less than 2 seconds Peripheral Pulses: Radially present Skin: [place] and dry Hypotensive Treatment (not required for isolated lactic acid elevation): Comfort Care: No Central LIne: Right femoral vein Vasopressor started: None indicated at this time although patient was placed on a diltiazem drip for rate control. I considered further perfusion assessment with CVP measurement, SCVO2, bedside ultrasound volume assessment, passive leg raise, trial of further fluid bolus. And preceded with XOXOXO Central Line Placement by me: Patient consented, sterilely draped, full prep, gown, glove, mask, time out performed. Anesthesia: 1% lidocaine locally Location: Right femoral vein Device: Multiple lumen Technique: Seldinger technique. Secured with suture. Results: Venous return from all ports with easy saline flush. No complications. Accepting Care Team: Current data and ongoing care discussed. Time: Time of admission Primary Provider: Dr. Cortez Consulting: Cardiology and infectious disease Outstanding Data: none The entire Guide wire retrieved and disposed of. Departure Diagnosis: Primary Impression: Sepsis Sepsis type: sepsis due to unspecified organism Qualified Code: A41.9 - Sepsis, due to unspecified organism Additional Impressions: UTI (urinary tract infection) Urinary tract infection type: acute cystitis Hematuria presence: without hematuria Qualified Code: N30.00 - Acute cystitis without hematuria Atrial fibrillation with RVR Non-STEMI (non-ST elevated myocardial infarction) Dehydration Respiratory failure Chronicity: acute on chronic Respiratory failure complication: hypoxia and hypercapnia Qualified Code: J96.21 - Acute on chronic respiratory failure with hypoxia and hypercapnia Acute encephalopathy Condition: Serious PA DOCKERY MD Aug 20, 2017 13:53
[2017-08-20] MEDS ORDERED: CEFEPIME 1GM/50 ML (PMX) 50 ML IVPB ONE ×2 (14:00→15:30)
[2017-08-20] MEDS ORDERED: VANCOMYCIN 1 GM (PMX) 250 ML IVPB SCH ×2 (14:00→15:30)
[2017-08-20] MEDS ORDERED: ACETAMINOPHEN 650 MG SUPP PR ONE (14:00)
[2017-08-20] MEDS ORDERED: ACETAMINOPHEN 325 MG TAB PO ONE (14:00)
[2017-08-20 14:20] LABS: ABNORMAL IP MESSAGE 1; BASOPHIL # 0.1 10^3/ul (0.0-0.1); BASOPHILS % 0.4 % (0.0-2.0); HEMATOCRIT 40.3 % (42.0-52.0); HEMOGLOBIN 12.5 g/dl (14.0-18.0); LYMPHOCYTES # 4.7 10^3/ul (0.8-2.9); LYMPHOCYTES % 29.5 % (15.0-51.0); MEAN CORPUSCULAR HEMOGLOBIN 27.2 pg (29.0-33.0); MEAN CORPUSCULAR VOLUME 87.6 fl (82.0-101.0); MEAN PLATELET VOLUME 11.3 fl (7.4-10.4); MONOCYTE # 2.1 10^3/ul (0.3-0.9); MONOCYTES % 12.9 % (0.0-11.0); NEUTROPHIL # 9.1 10^3/ul (1.6-7.5); NEUTROPHILS % 56.6 % (39.0-77.0); NUCLEATED RED BLOOD CELLS% 0.1 /100WBC (0.0-0.0); PLATELET COUNT 273 10^3/UL (140-415); POSITIVE DIFF @See below; RED CELL DISTRIBUTION WIDTH 17.4 % (11.5-14.5)
[2017-08-20] MEDS ORDERED: DILTIAZEM 25 MG INJ IV ONE ×3 (14:30→16:30)
[2017-08-20 14:43] LABS: PARTIAL THROMBOPLASTIN TIME 29.3 Sec (25.0-35.0)
--- NOTE | 2017-08-20 14:43 | RADRPT ---
PROCEDURE: XR Chest. CLINICAL INDICATION: Shortness of breath TECHNIQUE: Single portable view of the chest was obtained COMPARISON: CR PORT CHEST 11/03/2016 FINDINGS: The trachea is midline. Tracheostomy tube in situ. The cardiac silhouette and pulmonary vascularity are within normal limits. The lungs are clear. The costophrenic angles are sharp. IMPRESSION: 1. Tracheostomy tube in situ. 2. No evidence of acute cardiopulmonary disease. RPTAT: AAPP Physician Maggie Date Time Electronically viewed and signed by Physician Maggie on 08/20/2017 14:43 JL/
[2017-08-20 14:46] LABS: INR 1.09; PROTIME 14.2 Sec (11.9-14.9); PT RATIO 1.1
[2017-08-20 14:47] LABS: ALBUMIN 3.8 g/dl (3.3-4.9); ALBUMIN/GLOBULIN RATIO 1.02; BILIRUBIN,INDIRECT 0.2 mg/dl (0-1.1); BILIRUBIN,TOTAL 0.2 mg/dl (0.2-1.3); CALCIUM 9.2 mg/dl (8.4-10.2); CREATININE 1.21 mg/dl (0.61-1.24); POTASSIUM 4.4 mmol/L (3.5-5.1); TOTAL PROTEIN 7.5 g/dl (6.1-8.1)
[2017-08-20 15:17] LABS: TROPONIN-I 0.141 ng/ml (0.00-0.12)
[2017-08-20 15:19] LABS: ADD UMIC YES; UR ASCORBIC ACID 40 mg/dL (NEGATIVE); UR BILIRUBIN (Dip) NEGATIVE (NEGATIVE); UR BLOOD (Dip) NEGATIVE (NEGATIVE); UR BUDDING YEAST MANY /HPF (NONE SEEN); UR CLARITY SLIGHTLY CLOUDY (CLEAR); UR COLOR YELLOW (YELLOW); UR GLUCOSE (Dip) 3+ mg/dL (NEGATIVE); UR KETONES (Dip) TRACE mg/dL (NEGATIVE); UR LEUKOCYTE ESTERASE (Dip) 2+ Leu/ul (NEGATIVE); UR NITRITE (Dip) NEGATIVE (NEGATIVE); UR RBC 34 /HPF (0-5); UR SPECIFIC GRAVITY (Dip) 1.028 (1.003-1.030); UR TOTAL PROTEIN (Dip) 3+ mg/dl (NEGATIVE); UR UROBILINOGEN (Dip) NEGATIVE (NEGATIVE)
[2017-08-20] MEDS ORDERED: SOD CHLORIDE 0.9% 1,000 ML IV ONE (15:30)
[2017-08-20] MEDS: DILTIAZEM-D5W 125MG/125ML DRIP 125 ML IV SCH (16:40)
--- NOTE | 2017-08-20 16:46 | CONS ---
Date/Time of Note Date/Time of Note DATE: 08/20/17 TIME: 16:37 Assessment/Plan Assessment/Plan Chief Complaint/Hosp Course 1.: Atrial fibrillation with rapid ventricular response due to below 2. Hypoxemic respiratory failure status post tracheostomy 3. Sepsis probably with UTI 4. History of multiple CVA 5. Diabetes with severely elevated glucose level probably related to above 6. Dyslipidemia 7. Encephalopathy 8. Severe lactic acidosis 9. Mildly abnormal troponin most likely secondary to above: Rule out acute myocardial infarction Recommendations: We will check a digoxin level and if it is not elevated digoxin IV will be added. Antibiotic is being managed as per internal medicine. Respiratory care will be continued. Patient will be started on Cardizem drip to control the heart rate better. We will continue to closely monitor on telemetry. IV fluid has been started. Thank you for his referral. I will continue to follow along with you. KATHY MITTAL MD [facility] Problems: Consultation Date/Type/Reason Admit Date/Time Date of Consultation: Aug 20, 2017 Type of Consultation: cardiology Reason for Consultation Afib RVR. Abnormal troponin Referring Provider: NAVEEN MAR DO Hx of Present Illness Chief complaint: Fever, elevated glucose History of present illness: Thank you for his referral. History was obtained from discussion with the ER physician from excessive review of the old chart discussion with the physicians and staff. Patient himself is not able to provide any history to me. Patient old record was extensively reviewed. Patient also known to me from previous admissions to the hospitals. This unfortunate 72-year-old gentleman with history of CVA chronic atrial fibrillation who was brought in because of increasing sugar levels as well as fever. Patient was noted to have high fever of 103. He has been atrial fibrillation with rapid ventricular response. His blood pressure so far has been stable. Patient is nonverbal unable to provide any history to me. MEDICATIONS: Reviewed as per medical reconciliation sheet, which was personally reviewed. ALLERGIES: NO REPORTED ALLERGIES. SOCIAL HISTORY: The patient currently does not smoke. He apparently had smoked in the past. FAMILY HISTORY: No reported early coronary artery disease. PAST MEDICAL HISTORY: History of cerebrovascular accident many years ago. He had another CVA apparently earlier this year, which appeared to be a hemorrhagic stroke at that time. He has chronic atrial fibrillation, dyslipidemia, history of congestive heart failure, valvular heart disease, diabetes, . History of chronic respiratory failure status post tracheostomy. History of encephalopathy ROS: Unable to obtain except for above. Patient has tracheostomy Social History Smoking Status: Never smoker Exam/Review of Systems Vital Signs Vitals Vital Signs Date Time Temp Pulse Resp B/P Pulse Ox O2 Delivery O2 Flow Rate FiO2 08/20/17 15:33 157 21 100 40 08/20/17 14:55 157/111 Mechanical Ventilator 08/20/17 13:49 103.8 Exam General: Status post tracheostomy on oxygen now HEENT: NC/AT. pupils are equal. round. NECK: NO JVD. no stridor. CV: Irregularly irregular. Tachycardic.. systolic murmur; no gallop or rubs. PULM: no wheezing . Mild rhonchi. GI: SOFT, NT, ND, no rebound or guarding. Status post PEG placement Extremity: trace B/L LE edema. no clubbing. neuro: Lethargic. Does not respond to verbal stimuli Psych: calm and pleasant rectal: deferred : normal EKG: A. fib with rapid ventricular response. ST-T wave abnormalities suggestive of ischemia Results Result Diagram: 08/20/17 1409 08/20/17 1409 Results 24 hrs Laboratory Tests Test 08/20/17 14:09 08/20/17 14:45 White Blood Count 16.0 #H Red Blood Count 4.60 #L Hemoglobin 12.5 #L Hematocrit 40.3 #L Mean Corpuscular Volume 87.6 Mean Corpuscular Hemoglobin 27.2 L Mean Corpuscular Hemoglobin Concent 31.0 L Red Cell Distribution Width 17.4 H Platelet Count 273 # Mean Platelet Volume 11.3 #H Neutrophils % 56.6 Lymphocytes % 29.5 Monocytes % 12.9 H Eosinophils % 0.0 Basophils % 0.4 Nucleated Red Blood Cells % 0.1 H Neutrophils # 9.1 H Lymphocytes # 4.7 H Monocytes # 2.1 H Eosinophils # 0.0 Basophils # 0.1 Nucleated Red Blood Cells # 0.0 Prothrombin Time 14.2 Prothrombin Time Ratio 1.1 INR International Normalized Ratio 1.09 Activated Partial Thromboplast Time 29.3 Sodium Level 148 H Potassium Level 4.4 Chloride Level 108 Carbon Dioxide Level 27 Anion Gap 17 H Blood Urea Nitrogen 51 H Creatinine 1.21 Glucose Level 550 *H Lactic Acid Level 6.0 *H Calcium Level 9.2 Total Bilirubin 0.2 Direct Bilirubin 0.00 Indirect Bilirubin 0.2 Aspartate Amino Transf (AST/SGOT) 21 Alanine Aminotransferase (ALT/SGPT) 32 Alkaline Phosphatase 85 Troponin I 0.141 *H Total Protein 7.5 Albumin 3.8 Globulin 3.70 H Albumin/Globulin Ratio 1.02 Lipase 479 H Urine Color YELLOW Urine Clarity SLIGHTLY CLOUDY A Urine pH 5.0 Urine Specific [place] 1.028 Urine Ketones TRACE A Urine Nitrite NEGATIVE Urine Bilirubin NEGATIVE Urine Urobilinogen NEGATIVE Urine Leukocyte Esterase 2+ H Urine Microscopic RBC 34 H Urine Microscopic WBC 85 H Urine Yeast (Budding) MANY A Urine Hemoglobin NEGATIVE Urine Glucose 3+ H Urine Total Protein 3+ H Medications Medications Current Medications Vancomycin HCl 250 ml @ 125 mls/hr ONCE IVPB ; Start 08/20/17 at 15:30; Stop 08/20/17 at 17:29 Diltiazem HCl (Cardizem-D5W 125 Mg/125 ml Drip) 125 ml @ 5 mls/hr TITRATE IV ; Start 08/20/17 at 16:30 KATHY MITTAL MD Aug 20, 2017 16:46
[2017-08-20] MEDS: MAGNESIUM HYDROXIDE 30ML CUP GTB SCH (17:00)
[2017-08-20] MEDS ORDERED: HYDROCODONE/APAP (5/325) TAB GTB PRN (17:00)
[2017-08-20 17:13] LABS: CREATINE KINASE 99 IU/L (23-200)
[2017-08-20 17:19] LABS: AADO2 Arterial 54.6 mmHg (7.0-24.0); Allen Test ACCEPTAB; Arterial Base Excess -2.4 mmol/L (-3.0-3); Arterial COHb 0.2 % (0.0-3.0); Arterial Fraction of Oxyhgb 98.2 % (93.0-99.0); Arterial HCO3 22.1 mmol/L (22.0-26.0); Arterial MetHb 0.2 % (0.0-1.5); MODE VENT - AC
[2017-08-20 17:34] LABS: CK-MB < 0.22 ng/ml (0.0-2.4); TROPONIN-I 0.201 ng/ml (0.00-0.12)
[2017-08-20] MEDS ORDERED: INSU100I27 SQ (17:35)
[2017-08-20] MEDS ORDERED: HYDR-3671 GTB (17:37)
[2017-08-20] MEDS ORDERED: MAGN400T28 GTB (17:40)
[2017-08-20] MEDS ORDERED: INSU100V3 IJ (17:40)
[2017-08-20] MEDS ORDERED: ASC500 GTB (17:41)
[2017-08-20] MEDS ORDERED: CHLO473M4 MM (17:42)
[2017-08-20] MEDS ORDERED: DIGOXIN 500 MCG INJ IV ONE ×2 (18:00→18:30)
[2017-08-20] MEDS ORDERED: ACETAMINOPHEN 650MG/20.3ML CUP GTB PRN (18:00)
[2017-08-20] MEDS ORDERED: AMIODARONE 150MG/D5W BOLUS 100 ML IV ONE ×2 (18:00→18:30)
[2017-08-20] MEDS: metFORMIN 500 MG TAB GTB SCH (18:00)
[2017-08-20] MEDS ORDERED: DEXTROSE 50% 50 ML SYRINGE IV PRN ×2 (18:30)
[2017-08-20] MEDS ORDERED: GLUCOSE GEL 15 GRAM TUBE PO PRN ×2 (18:30)
[2017-08-20] MEDS ORDERED: GLUCAGON 1 MG INJ IM PRN (18:30)
[2017-08-20] MEDS ORDERED: GLUCOSE GEL 15 GRAM TUBE BUCCAL PRN (18:30)
[2017-08-20] MEDS ORDERED: AMIODARONE 900 MG in DEXTROSE 5% 482 ML IV SCH (18:30)
[2017-08-20] MEDS: SUCRALFATE (100 MG/ML) 10ML CUP GTB SCH ×2 (19:20→23:22)
[2017-08-20] MEDS: METOPROLOL 25 MG TAB GTB SCH ×2 (19:21→23:23)
[2017-08-20] MEDS: CHLORHEXIDINE GLUCONATE 15 ML UD CUP MM SCH (20:17)
[2017-08-20] MEDS: DOCUSATE SODIUM 100 MG CAP PO SCH (20:17)
[2017-08-20] MEDS: TAMSULOSIN (SR) 0.4 MG CAP PO SCH (20:17)
[2017-08-20] MEDS: LANSOPRAZOLE 30 MG CAP GTB SCH (20:17)
[2017-08-20] MEDS: ATORVASTATIN 40 MG TAB GTB SCH (20:17)
[2017-08-20] MEDS: LEVETIRACETAM 250 MG TAB PO SCH (20:18)
[2017-08-20] MEDS: CEFEPIME 1GM/50 ML (PMX) 50 ML IVPB SCH (20:25)
[2017-08-20] MEDS: DILTIAZEM 90 MG TAB GTB SCH (21:09)
[2017-08-20] MEDS ORDERED: DILTIAZEM (SR) 90 MG CAP PO SCH (22:00)
--- NOTE | 2017-08-20 22:38 | CONS ---
DATE OF ADMISSION: 08/20/2017 DATE OF CONSULTATION: 08/20/2017 INFECTIOUS DISEASE CONSULTATION REASON FOR CONSULTATION: Antibiotic management. HISTORY OF PRESENT ILLNESS: Nithin Santillan is a 72-year-old male who comes in with fever and high blood sugars. The patient sent in by EMS from long term with 1 day of fever to 103 degr ees. The patient is nonverbal and lives in a long term. His past problems include: 1. Adult-onset diabetes mellitus. 2. Hypertension. 3. Coronary artery disease. 4. Benign prostatic hypertrophy. 5. Epilepsy. 6. History of cerebral infarction and coma. 7. Ventilatory-dependent respiratory failure, status post tracheostomy. 8. Dysphagia, status post G-tube placement. 9. DVT. 10. Hypertension. 11. Asthma. 12. Atrial fibrillation. 13. UTIs. 14. Buttock pressure ulceration. 15. GERD. PAST MEDICAL HISTORY: Operations as outlined. FAMILY HISTORY: Noncontributory. SOCIAL HISTORY: He lives in a long term. ALLERGIES: NONE KNOWN. MEDICATIONS: Per chart. REVIEW OF SYSTEMS: Noncontributory. PHYSICAL EXAMINATION: VITAL SIGNS: The patient presents with a temperature of 103.8. LABORATORY DATA: His white count is 16,000, H and H of 12.5 and 40.3, platelet count 273,000. BUN and creatinine 51/1.21, glucose of 550. GENERAL: Patient is an elderly, debilitated male who is encephalopathic and nonverbal. He has a tr ach and PEG. SKIN: Without generalized rash. His skin is hot and dry to the touch. HEENT: Within normal limits. LYMPH NODES: Tracheostomy. CHEST: Decreased breath sounds at the bases. HEART: Tachycardic without murmur or gallop. ABDOMEN: Soft, nontender. G-tube in place without exudate, without organosplenomegaly or masses. EXTREMITIES: Without cyanosis, clubbing or edema. RECTAL AND GENITAL: Deferred. NEUROLOGIC: The patient is fairly vegetative. IMPRESSION AND PLAN: Patient was started on vancomycin and cefepime for his sepsis. His urine show s 2+ leukocyte esterase, 85 white cells per high powered field. Chest x-ray shows no acute cardiopu lmonary disease, so we are probably dealing with urinary tract infection and urosepsis. His influen za screen is negative. I will dictate my findings to the hospitalist. Dictated By: BIANCA QIU MD, JD/NERY Conf#: [id number] DID#: [id number]
--- NOTE | 2017-08-20 22:39 | HP ---
DATE OF ADMISSION: 08/20/2017 CHIEF COMPLAINT: Sepsis, Afib with rapid ventricular rate. HISTORY OF PRESENT ILLNESS: This is a 72-year-old male with a past medical history of CVA, history of intracranial hemorrhage, history of chronic encephalopathy, history of chronic respiratory failur e status post trach, history of dysphagia, history of seizure disorder, history of hypertension, Symone b, BPH, GERD and dyslipidemia who presents to [facility] due to underlying fever. The patient was noted at a subacute facility of being febrile with temperatures as high as 103 and hypertensive. The patient came into the emergency room for evaluation. Upon arrival, the patient h ad laboratory data drawn which showed a white count of 16,000, a urinalysis showed positive pyuria. The patient had a chest x-ray which showed no evidence of acute disease. The patient was also note d to be hypertensive and in Afib with rapid rate. In the emergency room, the patient received IV an tibiotics, IV fluids and received IV diltiazem. There have been no reports of any hemoptysis, hemat emesis or hematochezia. PAST MEDICAL HISTORY: As stated above, history of CVA, history of ventilator-dependent respiratory failure, history of dysphagia, history of hypertension, history of Afib, history of diabetes, histor y of BPH, history of UTI, history of decubitus wound. PAST SURGICAL HISTORY: Status post trach, status post PEG. ALLERGIES: NO KNOWN DRUG ALLERGIES. FAMILY HISTORY: Noncontributory. SOCIAL HISTORY: Lives at a subacute facility. MEDICATIONS: The patient's medications have been reviewed and reconciled. REVIEW OF SYSTEMS: Unable to do adequate review of systems as the patient is obtunded. Pertinent p ositives are as obtained by reviewing medical records, stated in HPI; otherwise negative. PHYSICAL EXAMINATION: VITAL SIGNS: Blood pressure is 157/111, respirations 16, pulse 134, temperature 103.8. HEENT: Head is normocephalic. Pupils are reactive to light. NECK: Shows a trach. HEART: Irregularly irregular. LUNGS: Show diminished breath sounds at the base. ABDOMEN: Soft, nontender to palpation. No rebound or guarding. EXTREMITIES: Negative for clubbing, cyanosis. No edema. DERMATOLOGIC: No rashes. MUSCULOSKELETAL: positive wound. NEUROLOGIC: The patient is obtunded. LABORATORY DATA: Urinalysis positive pyuria, hematuria and proteinuria. The patient has a sodium o f 148, potassium 4.4, BUN 51, creatinine 1.21, glucose 550. Troponin 0.41. Lactic acid 6.0. White count 16.0, hemoglobin 12.5, platelet count is 273. ASSESSMENT AND PLAN: This is a 72-year-old male who presents with: 1. Sepsis. Etiology is secondary to urinary tract infection. Plan is to check blood cultures, uri ne cultures. Will continue the patient on antibiotic therapy. The patient has elevated lactic acid level. Will check a procalcitonin level. Will place an infectious disease consult with Dr. Parra for evaluation. 2. Lactic acidosis secondary to severe sepsis. Continue treatment of underlying sepsis. Continue fluids, antibiotic therapy. Will monitor serial lactic acid levels. 3. Atrial fibrillation with rapid ventricular rate. Continue current medical management with intra venous diltiazem. Consider diltiazem or amiodarone drip. Will place a cardiology consult with Dr. Briones for evaluation. 4. Ventilator-dependent respiratory failure. Vent settings and ABG were reviewed. Continue to mon itor. Follow up with pulmonary. 5. Dysphagia, status post percutaneous endoscopic gastrostomy. Continue tube feeding. 6. Acute on chronic encephalopathy. Etiology is toxic metabolic. Continue to monitor. 7. Hypernatremia. The patient has a free water deficit of approximately 2 liters. Will increase t he patient's free water flushes, 200 mL q.4 hours. 8. Anemia. Monitor hemoglobin and hematocrit levels. 9. Diabetes. I will start the patient on Accu-Cheks, insulin sliding scale, also start on long-sta nding Lantus. 10. Seizure disorder. Continue Keppra. 11. History of coronary artery disease. Continue medical management. 12. Benign prostatic hypertrophy. Continue Flomax. 13. Gastrointestinal and deep venous thrombosis prophylaxis. Continue proton pump inhibitor and se quential leg squeezers. Dictated By: NAVEEN LAYTON/NERY Conf#: [id number] DID#: [id number]
[2017-08-21] VITALS (75 sets, daily range): BP systolic 94–156; BP diastolic 45–109; PULSE 81–189; RESP 7–32; TEMP 99.8; Ht 175.3 cm; Wt 85.5 kg
[2017-08-21] MEDS: SUCRALFATE (100 MG/ML) 10ML CUP GTB SCH ×3 (06:14→17:02)
[2017-08-21] MEDS: METOPROLOL 25 MG TAB GTB SCH ×3 (06:14→17:02)
[2017-08-21] MEDS: DILTIAZEM 90 MG TAB GTB SCH ×2 (06:25→13:11)
[2017-08-21 06:37] LABS: BASOPHILS % 0.3 % (0.0-2.0); HEMATOCRIT 31.2 % (42.0-52.0); HEMOGLOBIN 9.7 g/dl (14.0-18.0); LYMPHOCYTES # 2.1 10^3/ul (0.8-2.9); LYMPHOCYTES % 18.5 % (15.0-51.0); MEAN CORPUSCULAR HEMOGLOBIN 27.4 pg (29.0-33.0); MEAN CORPUSCULAR HGB CONC 31.1 g/dl (32.0-37.0); MEAN CORPUSCULAR VOLUME 88.1 fl (82.0-101.0); MEAN PLATELET VOLUME 11.5 fl (7.4-10.4); MONOCYTE # 0.9 10^3/ul (0.3-0.9); MONOCYTES % 7.6 % (0.0-11.0); NEUTROPHIL # 8.4 10^3/ul (1.6-7.5); NEUTROPHILS % 73.2 % (39.0-77.0); NUCLEATED RED BLOOD CELLS% 0.2 /100WBC (0.0-0.0); PLATELET COUNT 161 10^3/UL (140-415); RED BLOOD COUNT 3.54 10^6/ul (4.70-6.10); RED CELL DISTRIBUTION WIDTH 17.2 % (11.5-14.5); WHITE BLOOD COUNT 11.5 10^3/ul (4.8-10.8)
[2017-08-21 06:51] LABS: ALBUMIN 2.9 g/dl (3.3-4.9); ALBUMIN/GLOBULIN RATIO 0.93; BILIRUBIN,INDIRECT 0.5 mg/dl (0-1.1); BILIRUBIN,TOTAL 0.5 mg/dl (0.2-1.3); CALCIUM 8.1 mg/dl (8.4-10.2); CHOL/HDL RATIO 3.8 RATIO; CREATININE 0.93 mg/dl (0.61-1.24); MAGNESIUM 2.4 mg/dl (1.7-2.5); POTASSIUM 3.4 mmol/L (3.5-5.1)
[2017-08-21 06:57] LABS: INR 1.24; PROTIME 15.8 Sec (11.9-14.9); PT RATIO 1.2
[2017-08-21 07:15] LABS: CK-MB 0.86 ng/ml (0.0-2.4); TROPONIN-I 0.213 ng/ml (0.00-0.12)
[2017-08-21 07:22] LABS: THYROID STIMULATING HORMONE 3.15 MIU/L (0.465-4.680)
[2017-08-21] MEDS ORDERED: INSULIN GLARGINE [LANtus] 3 ML PEN SC SCH (08:00)
[2017-08-21] MEDS: MULTIVITAMINS THERAPEUTIC TAB GTB SCH (08:54)
[2017-08-21] MEDS: LANSOPRAZOLE 30 MG CAP GTB SCH ×2 (08:54→20:57)
[2017-08-21] MEDS: CHLORHEXIDINE GLUCONATE 15 ML UD CUP MM SCH ×2 (08:54→20:58)
[2017-08-21] MEDS: metFORMIN 500 MG TAB GTB SCH (08:54)
[2017-08-21] MEDS: DOCUSATE SODIUM 100 MG CAP PO SCH (08:54)
[2017-08-21] MEDS: BISACODYL 10 MG SUPP PR SCH (08:55)
[2017-08-21] MEDS: CEFEPIME 1GM/50 ML (PMX) 50 ML IVPB SCH ×2 (08:55→20:57)
[2017-08-21] MEDS: FINASTERIDE 5 MG TAB PEG SCH (08:55)
[2017-08-21] MEDS ORDERED: LISINOPRIL 10 MG TAB GTB SCH (09:00)
[2017-08-21] MEDS ORDERED: POTASSIUM CHLORIDE 20 MEQ POWDER FOR ORAL SOLN GTB ONE (09:00)
[2017-08-21] MEDS ORDERED: MODAFINIL 200 MG TAB GTB SCH (09:00)
[2017-08-21] MEDS ORDERED: INSULIN ASPART [NOVOLOG] 3 ML PEN SC SCH (09:00)
[2017-08-21] MEDS ORDERED: DIGOXIN 0.125 MG TAB GTB SCH (09:00)
[2017-08-21] MEDS: LEVETIRACETAM 250 MG TAB PO SCH ×2 (09:45→20:57)
[2017-08-21] MEDS ORDERED: DEXTROSE 50% 50 ML SYRINGE IV PRN ×2 (10:30)
[2017-08-21] MEDS: DILTIAZEM-D5W 125MG/125ML DRIP 125 ML IV SCH ×2 (10:56→19:11)
[2017-08-21] MEDS ORDERED: DIGOXIN 500 MCG INJ IV ONE (11:00)
--- NOTE | 2017-08-21 11:23 | CONS ---
Date/Time of Note Date/Time of Note DATE: 08/21/17 TIME: 11:18 Assessment/Plan Assessment/Plan Additional Assessment/Plan Ventilator setting; AC of 16, tidal volume 450, PEEP of 5, 30% FiO2. Patient is currently on amiodarone drip at 0.5 mg/min. Assessment and recommendations; 1. Patient with history of chronic respiratory failure and severe encephalopathy admitted for UTI and sepsis. Clinically improving. Currently on appropriate antibiotic regimen. 2. Atrial fibrillation with RVR, currently the rate is well controlled on amiodarone drip. 3. Multiple other comorbidities including BPH, seizure disorder, diabetes. 4. Mild anemia and thrombocytopenia. Continue current supportive care. Consultation Date/Type/Reason Admit Date/Time Date of Consultation: Aug 21, 2017 Type of Consultation: Pulmonary/critical care Reason for Consultation Pulmonary consultation requested for evaluation of chronic respiratory failure and sepsis. History of presenting illness; patient is a 72-year-old male who is a residential resident who was transferred over to the hospital with fever. Upon evaluation patient was in atrial fibrillation with rapid ventricular response as well as had significant UTI. Patient has been started on amiodarone drip with heart rate well controlled no also started on appropriate broad-spectrum antibiotic coverage. By the time I saw the patient in ICU, the patient is on ventilator via tracheostomy and due to underlying severe encephalopathy was totally noncommunicative. History was obtained from medical records as well as from patient's family who were present in the room. Past medical history; 1. Patient with history of encephalopathy 2. Chronic respiratory failure which is ventilator dependent. 3. History of intracranial hemorrhage. 4. History of seizure disorder. 5. History of chronic atrial fibrillation. 6. History of diabetes 7. BPH. Medications; reviewed. Allergies; none. Social history; patient never smoked. No show alcohol or drug abuse. Family history; patient is , has 5 children. Occupational history; noncontributory. Review of systems; unable to be obtained. General exam; elderly male, on ventilator via tracheostomy, unresponsive, currently in no distress. Social History Smoking Status: Unknown if ever smoked Exam/Review of Systems Vital Signs Vitals Vital Signs Date Time Temp Pulse Resp B/P Pulse Ox O2 Delivery O2 Flow Rate FiO2 08/21/17 10:30 136 20 135/77 100 08/21/17 10:00 Mechanical Ventilator 08/21/17 09:21 30 08/21/17 08:00 99.3 Intake and Output 08/20/17 08/20/17 08/21/17 15:00 23:00 07:00 Intake Total 66.8 ml Output Total 300 ml Balance -233.2 ml Exam HEENT exam; supple neck, no JVD. No lymphadenopathy. Midline trachea. No thyromegaly. Tracheostomy in place. Insertion site is clean. Patient is edentulous. Chest exam; clear to auscultation. S1-S2 audible, no murmurs. Irregular rhythm. Abdomen exam; soft, nondistended. G-tube in place. Bowel sounds audible. No scars are present. Extremity exam; no edema. Pulses 1+ bilaterally. 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 Results Result Diagram: 08/21/17 0400 08/21/17 0400 Results 24 hrs Laboratory Tests Test 08/20/17 14:09 08/20/17 14:45 08/20/17 15:16 08/20/17 16:18 White Blood Count 16.0 #H Red Blood Count 4.60 #L Hemoglobin 12.5 #L Hematocrit 40.3 #L Mean Corpuscular Volume 87.6 Mean Corpuscular Hemoglobin 27.2 L Mean Corpuscular Hemoglobin Concent 31.0 L Red Cell Distribution Width 17.4 H Platelet Count 273 # Mean Platelet Volume 11.3 #H Neutrophils % 56.6 Lymphocytes % 29.5 Monocytes % 12.9 H Eosinophils % 0.0 Basophils % 0.4 Nucleated Red Blood Cells % 0.1 H Neutrophils # 9.1 H Lymphocytes # 4.7 H Monocytes # 2.1 H Eosinophils # 0.0 Basophils # 0.1 Nucleated Red Blood Cells # 0.0 Prothrombin Time 14.2 Prothrombin Time Ratio 1.1 INR International Normalized Ratio 1.09 Activated Partial Thromboplast Time 29.3 Sodium Level 148 H Potassium Level 4.4 Chloride Level 108 Carbon Dioxide Level 27 Anion Gap 17 H Blood Urea Nitrogen 51 H Creatinine 1.21 Glucose Level 550 *H Lactic Acid Level 6.0 *H 3.7 *H Calcium Level 9.2 Total Bilirubin 0.2 Direct Bilirubin 0.00 Indirect Bilirubin 0.2 Aspartate Amino Transf (AST/SGOT) 21 Alanine Aminotransferase (ALT/SGPT) 32 Alkaline Phosphatase 85 Troponin I 0.141 *H 0.201 *H Total Protein 7.5 Albumin 3.8 Globulin 3.70 H Albumin/Globulin Ratio 1.02 Lipase 479 H Urine Color YELLOW Urine Clarity SLIGHTLY CLOUDY A Urine pH 5.0 Urine Specific Sutton 1.028 Urine Ketones TRACE A Urine Nitrite NEGATIVE Urine Bilirubin NEGATIVE Urine Urobilinogen NEGATIVE Urine Leukocyte Esterase 2+ H Urine Microscopic RBC 34 H Urine Microscopic WBC 85 H Urine Yeast (Budding) MANY A Urine Hemoglobin NEGATIVE Urine Glucose 3+ H Urine Total Protein 3+ H Blood Gas Specimen Source Blood arterial Arterial Blood Date Drawn 08/20/2017 5:00:15 PM Arterial Blood pH (Temp corrected) 7.365 Arterial Blood pCO2 (Temp correct) 40.4 Arterial Blood pO2 (Temp corrected) 182.0 H Arterial Blood HCO3 22.1 Arterial Blood Base Excess -2.4 Arterial Blood Oxygen Saturation 98.6 Polo Test ACCEPTAB Arterial Blood Gas Puncture Site Right Radial Arterial Blood Carboxyhemoglobin 0.2 Arterial Blood Methemoglobin 0.2 Blood Gas A-a O2 Differential 54.6 H Oxyhemoglobin Percent 98.2 Total Hemoglobin 11.0 L Blood Gas Temperature 39.0 Blood Gas Respiration Rate 16.0 Blood Gas Actual Respiration Rate 23 Blood Gas Modality VENT - AC FiO2 40.0 Blood Gas Tidal Volume 500.0 Blood Gas Low PEEP Setting 5.0 Blood Gas Notified Whom ARLEN HOFFMAN Blood Gas Notified Time 08/20/2017 5:18:41 PM Creatine Kinase 99 Creatine Kinase Index 0.2 Creatinine Kinase MB (Mass) < 0.22 Digoxin Level 0.7 L Test 08/20/17 18:24 08/21/17 01:41 08/21/17 04:00 08/21/17 06:18 Lactic Acid Level 3.1 *H Bedside Glucose 366 H 344 H White Blood Count 11.5 #H Red Blood Count 3.54 #L Hemoglobin 9.7 #L Hematocrit 31.2 #L Mean Corpuscular Volume 88.1 Mean Corpuscular Hemoglobin 27.4 L Mean Corpuscular Hemoglobin Concent 31.1 L Red Cell Distribution Width 17.2 H Platelet Count 161 # Mean Platelet Volume 11.5 H Neutrophils % 73.2 Lymphocytes % 18.5 Monocytes % 7.6 Eosinophils % 0.0 Basophils % 0.3 Nucleated Red Blood Cells % 0.2 H Neutrophils # 8.4 H Lymphocytes # 2.1 Monocytes # 0.9 Eosinophils # 0.0 Basophils # 0.0 Nucleated Red Blood Cells # 0.0 Prothrombin Time 15.8 H Prothrombin Time Ratio 1.2 INR International Normalized Ratio 1.24 Sodium Level 148 H Potassium Level 3.4 L Chloride Level 115 H Carbon Dioxide Level 26 Anion Gap 10 # Blood Urea Nitrogen 34 #H Creatinine 0.93 Glucose Level 364 #H Calcium Level 8.1 L Magnesium Level 2.4 Total Bilirubin 0.5 Direct Bilirubin 0.00 Indirect Bilirubin 0.5 Aspartate Amino Transf (AST/SGOT) 16 Alanine Aminotransferase (ALT/SGPT) 25 Alkaline Phosphatase 58 Creatine Kinase 265 #H Creatine Kinase Index 0.3 Creatinine Kinase MB (Mass) 0.86 Troponin I 0.213 *H B-Type Natriuretic Peptide 544 H Total Protein 6.0 #L Albumin 2.9 L Globulin 3.10 Albumin/Globulin Ratio 0.93 Triglycerides Level 361 H Cholesterol Level 107 LDL Cholesterol, Calculated 7 HDL Cholesterol 28 L Cholesterol/HDL Ratio 3.8 Thyroid Stimulating Hormone (TSH) 3.150 Free Thyroxine 0.84 Digoxin Level 0.9 L Test 08/21/17 08:27 08/21/17 09:19 08/21/17 09:38 Bedside Glucose 324 H 379 H Lactic Acid Level 3.0 *H Medications Medications Current Medications Diltiazem HCl (Cardizem-D5W 125 Mg/125 ml Drip) 125 ml @ 5 mls/hr TITRATE IV Last administered on 08/21/17 10:56; Admin Dose 5 MLS/HR; Start 08/20/17 at 16:30 Acetaminophen (Tylenol Liquid) 650 mg Q4H PRN GTB PAIN; Start 08/20/17 at 18: 00 Atorvastatin Calcium (Lipitor) 40 mg QHS GTB Last administered on 08/20/17 20 :17; Admin Dose 40 MG; Start 08/20/17 at 21:00 Bisacodyl (Dulcolax Supp) 10 mg DAILY OH Last administered on 08/21/17 08:55 ; Admin Dose 10 MG; Start 08/21/17 at 09:00 Chlorhexidine Gluconate (Peridex) 15 ml Q12 MM Last administered on 08/21/17 08:54; Admin Dose 15 ML; Start 08/20/17 at 21:00 Finasteride (Proscar) 5 mg DAILY PEG Last administered on 08/21/17 08:55; Admin Dose 5 MG; Start 08/21/17 at 09:00 Acetaminophen/ Hydrocodone Bitart ([place] (5/325)) 1 tab Q4 PRN GTB apin; Start 08/20/17 at 17:00 Levetiracetam (Keppra) 125 mg Q12 PO Last administered on 08/21/17 09:45; Admin Dose 125 MG; Start 08/20/17 at 21:00 Lisinopril (Zestril) 10 mg DAILY GTB Last administered on 08/21/17 08:55; Admin Dose 10 MG; Start 08/21/17 at 09:00 Magnesium Hydroxide (Milk Of Mag) 30 ml Q24H GTB Last administered on 17:00; Admin Dose 30 ML; Start 08/20/17 at 17:00 Metoprolol Tartrate (Lopressor) 25 mg Q6 GTB Last administered on 08/21/17 11 :11; Admin Dose 25 MG; Start 08/20/17 at 18:00 Modafinil (Provigil) 50 mg DAILY GTB ; Start 08/21/17 at 09:00 Multivitamins Therapeutic (Theragran) 1 tab DAILY GTB Last administered on 08:54; Admin Dose 1 TAB; Start 08/21/17 at 09:00 Sucralfate (Carafate Susp) 1 gm Q6 GTB Last administered on 08/21/17 11:11; Admin Dose 1 GM; Start 08/20/17 at 18:30 Tamsulosin HCl (Flomax) 0.4 mg QHS PO Last administered on 08/20/17 20:17; Admin Dose 0.4 MG; Start 08/20/17 at 21:00 Lansoprazole 30 mg 30 mg BID GTB Last administered on 08/21/17 08:54; Admin Dose 30 MG; Start 08/20/17 at 21:00 Cefepime HCl (Maxipime 1gm/50 ml (Pmx)) 50 ml @ 100 mls/hr BID IVPB Last administered on 08/21/17 08:55; Admin Dose 100 MLS/HR; Start 08/20/17 at 21: 00 Miscellaneous Information 1 ea NOTE XX ; Start 08/20/17 at 18:30 Glucose (Glutose) 15 gm Q15M PRN PO DECREASED GLUCOSE; Start 08/20/17 at 18:30 Glucose (Glutose) 22.5 gm Q15M PRN PO DECREASED GLUCOSE; Start 08/20/17 at 18: 30 Dextrose (D50w Syringe) 25 ml Q15M PRN IV DECREASED GLUCOSE; Start 08/20/17 at 18:30 Dextrose (D50w Syringe) 50 ml Q15M PRN IV DECREASED GLUCOSE; Start 08/20/17 at 18:30 Glucagon (Glucagen) 1 mg Q15M PRN IM DECREASED GLUCOSE; Start 08/20/17 at 18: 30 Glucose (Glutose) 15 gm Q15M PRN BUCCAL DECREASED GLUCOSE; Start 08/20/17 at 18:30 Diltiazem HCl (Cardizem) 90 mg Q8 GTB Last administered on 08/21/17t 06:25; Admin Dose 90 MG; Start 08/20/17 at 22:00 Docusate Sodium (Colace Liquid Cup) 100 mg BID GTB ; Start 08/21/17 at 21:00 Diagnostic Test (Pha) (Accu-Chek) 1 ea Q1H XX ; Start 08/21/17 at 10:30 Dextrose (D50w Syringe) 25 ml Q15M PRN IV Till BS 80 mg/dL or above x2; Start 08/21/17 at 10:30 Dextrose (D50w Syringe) 50 ml Q15M PRN IV Till BS 80 mg/dL or above x2; Start 08/21/17 at 10:30 ROBSON CLARK Aug 21, 2017 11:23
--- NOTE | 2017-08-21 11:45 | PN ---
DATE: 08/21/2017 SUBJECTIVE: The patient remains in a serious condition. Currently on amiodarone drip. No other ev ents noted. OBJECTIVE: VITAL SIGNS: Blood pressure is 113/63, respiration 19, pulse 115, temperature 98.6. HEENT: Head is normocephalic. NECK: Supple. HEART: Regular rate. LUNGS: Show diminished breath sounds at the base. ABDOMEN: Soft, nontender to palpation without rebound or guarding. EXTREMITIES: Negative for clubbing, cyanosis. No edema. DERMATOLOGIC: No rashes. MUSCULOSKELETAL: No joint effusions. NEUROLOGIC: No change in exam. MEDICATIONS: The patient's medications have been reviewed. LABORATORY DATA: Shows white count 11.5, hemoglobin 9.7, hematocrit 31.2, platelet count of 161. S odium 148, potassium 3.4, chloride 115, glucose 344. INR is 1.24. ASSESSMENT AND PLAN: 1. Sepsis, etiology is likely secondary to urinary tract infection. Continue current antibiotic re gimen. Appreciate infectious disease evaluation. We will follow up lactic acid levels. Follow up procalcitonin level. 2. Lactic acidosis secondary to severe sepsis. The patient's lactic acid levels have been improvin g. Continue current antibiotic regimen. Continue fluids. 3. Atrial fibrillation with rapid rate. Continue IV amiodarone drip. 4. Ventilator dependent respiratory failure. Vent settings and ABG is reviewed. Continue to monit or. Follow up with pulmonary. 5. Dysphagia. Status post PEG. Continue tube feeding extremities Acute on chronic encephalopathy. Etiology is toxic metabolic. Continue to monitor. 6. Hypernatremia. Continue free water flushes 200 mL q.4h. 7. Anemia. Continue to monitor hemoglobin and hematocrit levels. 8. Diabetes. The patient will be restarted on Lantus 20 units q.a.m. Continue moderate sliding sca le, will adjust as needed. 9. Seizure disorder. Continue Keppra. 10. History of coronary artery disease. 11. Benign prostatic hypertrophy. Continue Flomax. 12. Gastrointestinal and deep venous thrombosis prophylaxis. Continue PPI and sequential leg squee zers. 13. Hypertension. Continue current blood pressure regimen. 14. Elevated troponin, possible demand ischemia, possible non-STEMI. Continue to monitor. Follow up with cardiology. 15. Hypokalemia, replete with potassium chloride. Please note I spent over 40 minutes of critical care time with this patient. Dictated By: NAVEEN LAYTON/NERY Conf#: [id number] DID#: [id number]
[2017-08-21] MEDS: INSULIN HUMAN REGULAR 100 UNIT in SOD CHLORIDE 0.9% 99 ML IV SCH ×2 (11:53→18:49)
[2017-08-21] MEDS: ACCU-CHEK XX SCH ×11 (11:54→22:59)
[2017-08-21] MEDS ORDERED: VANCOMYCIN IV PER PHARMACY XX SCH (14:00)
[2017-08-21] MEDS ORDERED: FLUCONAZOLE 100 MG TAB PO ONE (14:00)
--- NOTE | 2017-08-21 14:33 | RADRPT ---
Echocardiogram Report Patient Name: SUKHJINDER DOLAN Gender: Male Date: 1945 Study Date: 21-Aug-2017 Continuous Improvement Black Belt: Karan Elliott [facility] Location: 110-A Ref. Physician: KATHY BRIONES Quality: Adequate Procedures: Transthoracic echocardiogram with complete 2D, M-Mode, and doppler examination. Indications: Atrial Fibrillation. 2D/M Mode Doppler Measurement Value Normal Ranges Measurement Value Normal Ranges LVIDd 2D 5.7 3.5 - 5.6 cm MV E Peak Emil 0.8 m/sec LVIDs 2D 4.2 2.1 - 4.1 cm MV Decel Time 296 msec FS 2D 26.5 % TR Peak Emil 2.6 m/sec LVPWd 2D 1.3 0.6 - 1.1 cm TR Peak PG 26.0 mmHg IVSd 2D 1.3 0.6 - 1.1 cm RVSP 36.0 mmHg IVS/LVPW 2D 1.0 AoR Diam 2D 3.1 2.0 - 3.7 cm LA/Ao 2D 2 0 - 1 EDV 2D 188.0 cm3 ESV 2D 74.6 cm3 LA Dimen 2D 5.0 2.3 - 4.0 cm Findings Left Ventricle: Normal left ventricular cavity size. Mild concentric left ventricular hypertrophy. Mild global left ventricular systolic dysfunction. Ejection fraction is visually estimated at 4550 %. Abnormal Diastolic Function. Right Ventricle: Normal right ventricular size. Normal right ventricular systolic function. Left Atrium: There is moderate enlargement of left atrium. Right Atrium: The right atrium is normal in size. Mitral Valve: Mild mitral leaflet calcification. Mild mitral annular calcification. Trace mitral regurgitation. Aortic Valve: Normal appearance of the aortic valve. No significant aortic stenosis or insufficiency. Tricuspid Valve: Normal appearance of the tricuspid valve. Estimated peak PA systolic pressure 36 mmHg. There is mild tricuspid regurgitation. Pulmonic Valve: Pulmonic valve not well visualized. There is trace pulmonic regurgitation. Pericardium: Normal pericardium with no significant pericardial effusion. Aorta: Normal aortic root. IVC: Inferior vena cava without respiratory collapse, however, patient on ventilator. Conclusions 1.Normal left ventricular cavity size. Mild concentric left ventricular hypertrophy. Mild global left ventricular systolic dysfunction. Ejection fraction is visually estimated at 45-50 %. Abnormal Diastolic Function. 2.There is moderate enlargement of left atrium. 3.Mild mitral leaflet calcification. Mild mitral annular calcification. Trace mitral regurgitation. 4.Normal appearance of the aortic valve. No significant aortic stenosis or insufficiency. 5.Normal appearance of the tricuspid valve. Estimated peak PA systolic pressure 36 mmHg. There is mild tricuspid regurgitation. 6.Inferior vena cava without respiratory collapse, however, patient on ventilator. Electronically Signed By: Kathy Briones 21-Aug-2017 14:32:27 -0800 Patient Name: SUKHJINDER DOLAN Study Date: 21-Aug-[id number]
--- NOTE | 2017-08-21 14:36 | PN ---
DATE: 08/21/2017 SUBJECTIVE: No acute events. The patient is lying comfortably in bed. No fevers. He is in atrial fibrillation on Cardizem drip. VITAL SIGNS: T-max yesterday was 103.8, T-current 99.3, pulse 112, respirations 20, blood pressure 135/77, saturation 100 on vent. LABORATORY DATA: WBC 11.5, H and H 9.7 and 31.2, platelets 161, no shift, no bands. Lactic acid 3, BUN 34, creatinine 0.93. MICROBIOLOGY: Blood culture growing gram-positive cocci in pair and cluster. Urine culture growing yeast. INDWELLINGS: Trach, PEG, Dub[place], midline and femoral line. ANTIMICROBIALS: The patient is on: 1. Cefepime. 2. Vancomycin. PHYSICAL EXAMINATION: GENERAL: This is a chronically ill-appearing, well-developed elderly man who is in no distress. HEENT: Head atraumatic, normocephalic. Sclerae anicteric. Buccal mucosa dry. NECK: Supple. CHEST: Rise symmetrical. Breath sounds diminished to bases. HEART: S1, S2. ABDOMEN: Soft, bowel tones present. EXTREMITIES: Without cyanosis. ASSESSMENT: 1. Sepsis. 2. Gram-positive cocci in pairs and clusters bacteremia. 3. Fungal urinary tract infection. 4. Atrial fibrillation with rapid ventricular response. 5. Chronic respiratory failure. 6. Diabetes. 7. Benign prostatic hypertrophy. PLAN: The patient remains stable on Cardizem drip. Final cultures are pending. We will add flucon azole for other antifungal agent to make sure there is no interaction with Cardizem. Repeat blood c ultures. Continue management as per primary team and consultants. Dictated By: GUERO NEUMANN ENTRY LEVEL MANUFACTURING ENGINEER for BIANCA QIU MD NI/NTS Conf#: [id number] DID#: [id number]
--- NOTE | 2017-08-21 15:28 | CONS ---
Date/Time of Note Date/Time of Note DATE: 08/21/17 TIME: 15:12 Consult Date/Type/Reason Admit Date/Time Aug 20, 2017 at 16:26 Initial Consult Date 08/21/17 Type of Consultation: cardiology Ordering Provider: NAVEEN MAR DO Subjective cardiology follow up note: S: D/ W staff and rhythm was reviewed. pt remains in AFIB with RVR on amiodarone drip. he was switched to cardizem and HR is better now and is on ICU pt s/p trach and nonverbal. O: General: Status post tracheostomy on oxygen now HEENT: NC/AT. pupils are equal. round. NECK: NO JVD. no stridor. CV: Irregularly irregular. Tachycardic.. systolic murmur; no gallop or rubs. PULM: no wheezing . Mild rhonchi. GI: SOFT, NT, ND, no rebound or guarding. Status post PEG placement Extremity: trace B/L LE edema. no clubbing. neuro: Lethargic. Does not respond to verbal stimuli Psych: calm and pleasant rectal: deferred : normal EKG: A. fib with rapid ventricular response. ST-T wave abnormalities suggestive of ischemia echo reviewed personally: 1. Normal left ventricular cavity size. Mild concentric left ventricular hypertrophy. Mild global left ventricular systolic dysfunction. Ejection fraction is visually estimated at 45-50 %. Abnormal Diastolic Function. 2. There is moderate enlargement of left atrium. 3. Mild mitral leaflet calcification. Mild mitral annular calcification. Trace mitral regurgitation. 4. Normal appearance of the aortic valve. No significant aortic stenosis or insufficiency. 5. Normal appearance of the tricuspid valve. Estimated peak PA systolic pressure 36 mmHg. There is mild tricuspid regurgitation. 6. Inferior vena cava without respiratory collapse, however, patient on ventilator. Objective Vital Signs Date Time Temp Pulse Resp B/P Pulse Ox O2 Delivery O2 Flow Rate FiO2 08/21/17 14:00 111 16 104/55 100 Mechanical Ventilator 08/21/17 13:29 30 08/21/17 12:00 98.1 Intake and Output 08/20/17 08/20/17 08/21/17 15:00 23:00 07:00 Intake Total 66.8 ml Output Total 300 ml Balance -233.2 ml Results/Medications Result Diagram: 08/21/17 0400 08/21/17 0400 Results 24 hrs Laboratory Tests Test 08/20/17 15:16 08/20/17 16:18 08/20/17 18:24 08/21/17 01:41 Blood Gas Specimen Source Blood arterial Arterial Blood Date Drawn 08/20/2017 5:00:15 PM Arterial Blood pH (Temp corrected) 7.365 Arterial Blood pCO2 (Temp correct) 40.4 Arterial Blood pO2 (Temp corrected) 182.0 H Arterial Blood HCO3 22.1 Arterial Blood Base Excess -2.4 Arterial Blood Oxygen Saturation 98.6 Polo Test ACCEPTAB Arterial Blood Gas Puncture Site Right Radial Arterial Blood Carboxyhemoglobin 0.2 Arterial Blood Methemoglobin 0.2 Blood Gas A-a O2 Differential 54.6 H Oxyhemoglobin Percent 98.2 Total Hemoglobin 11.0 L Blood Gas Temperature 39.0 Blood Gas Respiration Rate 16.0 Blood Gas Actual Respiration Rate 23 Blood Gas Modality VENT - AC FiO2 40.0 Blood Gas Tidal Volume 500.0 Blood Gas Low PEEP Setting 5.0 Blood Gas Notified Whom ARLEN HOFFMAN Blood Gas Notified Time 08/20/2017 5:18:41 PM Lactic Acid Level 3.7 *H 3.1 *H Creatine Kinase 99 Creatine Kinase Index 0.2 Creatinine Kinase MB (Mass) < 0.22 Troponin I 0.201 *H Digoxin Level 0.7 L Bedside Glucose 366 H Test 08/21/17 04:00 08/21/17 06:18 08/21/17 08:27 08/21/17 09:19 White Blood Count 11.5 #H Red Blood Count 3.54 #L Hemoglobin 9.7 #L Hematocrit 31.2 #L Mean Corpuscular Volume 88.1 Mean Corpuscular Hemoglobin 27.4 L Mean Corpuscular Hemoglobin Concent 31.1 L Red Cell Distribution Width 17.2 H Platelet Count 161 # Mean Platelet Volume 11.5 H Neutrophils % 73.2 Lymphocytes % 18.5 Monocytes % 7.6 Eosinophils % 0.0 Basophils % 0.3 Nucleated Red Blood Cells % 0.2 H Neutrophils # 8.4 H Lymphocytes # 2.1 Monocytes # 0.9 Eosinophils # 0.0 Basophils # 0.0 Nucleated Red Blood Cells # 0.0 Prothrombin Time 15.8 H Prothrombin Time Ratio 1.2 INR International Normalized Ratio 1.24 Sodium Level 148 H Potassium Level 3.4 L Chloride Level 115 H Carbon Dioxide Level 26 Anion Gap 10 # Blood Urea Nitrogen 34 #H Creatinine 0.93 Glucose Level 364 #H Calcium Level 8.1 L Magnesium Level 2.4 Total Bilirubin 0.5 Direct Bilirubin 0.00 Indirect Bilirubin 0.5 Aspartate Amino Transf (AST/SGOT) 16 Alanine Aminotransferase (ALT/SGPT) 25 Alkaline Phosphatase 58 Creatine Kinase 265 #H Creatine Kinase Index 0.3 Creatinine Kinase MB (Mass) 0.86 Troponin I 0.213 *H B-Type Natriuretic Peptide 544 H Total Protein 6.0 #L Albumin 2.9 L Globulin 3.10 Albumin/Globulin Ratio 0.93 Triglycerides Level 361 H Cholesterol Level 107 LDL Cholesterol, Calculated 7 HDL Cholesterol 28 L Cholesterol/HDL Ratio 3.8 Thyroid Stimulating Hormone (TSH) 3.150 Free Thyroxine 0.84 Digoxin Level 0.9 L Bedside Glucose 344 H 324 H Lactic Acid Level 3.0 *H Test 08/21/17 09:38 08/21/17 11:42 08/21/17 13:01 08/21/17 14:04 Bedside Glucose 379 H 348 H 332 H 309 H Test 08/21/17 15:04 Bedside Glucose 299 H Medications Current Medications Diltiazem HCl (Cardizem-D5W 125 Mg/125 ml Drip) 125 ml @ 5 mls/hr TITRATE IV Last administered on 08/21/17 10:56; Admin Dose 5 MLS/HR; Start 08/20/17 at 16:30 Acetaminophen (Tylenol Liquid) 650 mg Q4H PRN GTB PAIN; Start 08/20/17 at 18: 00 Atorvastatin Calcium (Lipitor) 40 mg QHS GTB Last administered on 08/20/17 20 :17; Admin Dose 40 MG; Start 08/20/17 at 21:00 Bisacodyl (Dulcolax Supp) 10 mg DAILY IN Last administered on 08/21/17 08:55 ; Admin Dose 10 MG; Start 08/21/17 at 09:00 Chlorhexidine Gluconate (Peridex) 15 ml Q12 MM Last administered on 08/21/17 08:54; Admin Dose 15 ML; Start 08/20/17 at 21:00 Finasteride (Proscar) 5 mg DAILY PEG Last administered on 08/21/17 08:55; Admin Dose 5 MG; Start 08/21/17 at 09:00 Acetaminophen/ Hydrocodone Bitart ([place] (5/325)) 1 tab Q4 PRN GTB apin; Start 08/20/17 at 17:00 Levetiracetam (Keppra) 125 mg Q12 PO Last administered on 08/21/17 09:45; Admin Dose 125 MG; Start 08/20/17 at 21:00 Lisinopril (Zestril) 10 mg DAILY GTB Last administered on 08/21/17 08:55; Admin Dose 10 MG; Start 08/21/17 at 09:00 Magnesium Hydroxide (Milk Of Mag) 30 ml Q24H GTB Last administered on 17:00; Admin Dose 30 ML; Start 08/20/17 at 17:00 Metoprolol Tartrate (Lopressor) 25 mg Q6 GTB Last administered on 08/21/17 11 :11; Admin Dose 25 MG; Start 08/20/17 at 18:00 Modafinil (Provigil) 50 mg DAILY GTB ; Start 08/21/17 at 09:00 Multivitamins Therapeutic (Theragran) 1 tab DAILY GTB Last administered on 08:54; Admin Dose 1 TAB; Start 08/21/17 at 09:00 Sucralfate (Carafate Susp) 1 gm Q6 GTB Last administered on 08/21/17 11:11; Admin Dose 1 GM; Start 08/20/17 at 18:30 Tamsulosin HCl (Flomax) 0.4 mg QHS PO Last administered on 08/20/17 20:17; Admin Dose 0.4 MG; Start 08/20/17 at 21:00 Lansoprazole 30 mg 30 mg BID GTB Last administered on 08/21/17 08:54; Admin Dose 30 MG; Start 08/20/17 at 21:00 Cefepime HCl (Maxipime 1gm/50 ml (Pmx)) 50 ml @ 100 mls/hr BID IVPB Last administered on 08/21/17 08:55; Admin Dose 100 MLS/HR; Start 08/20/17 at 21: 00 Miscellaneous Information 1 ea NOTE XX ; Start 08/20/17 at 18:30 Glucose (Glutose) 15 gm Q15M PRN PO DECREASED GLUCOSE; Start 08/20/17 at 18:30 Glucose (Glutose) 22.5 gm Q15M PRN PO DECREASED GLUCOSE; Start 08/20/17 at 18: 30 Dextrose (D50w Syringe) 25 ml Q15M PRN IV DECREASED GLUCOSE; Start 08/20/17 at 18:30 Dextrose (D50w Syringe) 50 ml Q15M PRN IV DECREASED GLUCOSE; Start 08/20/17 at 18:30 Glucagon (Glucagen) 1 mg Q15M PRN IM DECREASED GLUCOSE; Start 08/20/17 at 18: 30 Glucose (Glutose) 15 gm Q15M PRN BUCCAL DECREASED GLUCOSE; Start 08/20/17 at 18:30 Diltiazem HCl (Cardizem) 90 mg Q8 GTB Last administered on 08/21/17 06:25; Admin Dose 90 MG; Start 08/20/17 at 22:00 Docusate Sodium (Colace Liquid Cup) 100 mg BID GTB ; Start 08/21/17 at 21:00 Diagnostic Test (Pha) (Accu-Chek) 1 ea Q1H XX Last administered on 08/21/17 14:13; Admin Dose 1 EA; Start 08/21/17 at 10:30 Dextrose (D50w Syringe) 25 ml Q15M PRN IV Till BS 80 mg/dL or above x2; Start 08/21/17 at 10:30 Dextrose (D50w Syringe) 50 ml Q15M PRN IV Till BS 80 mg/dL or above x2; Start 08/21/17 at 10:30 Fluconazole 100 mg 100 mg DAILY PO ; Start 08/22/17 at 09:00 Vancomycin HCl 1.5 gm/Sodium Chloride 250 ml @ 83.333 mls/ hr ONCE ONCE IVPB ; Start 08/21/17 at 15:30; Stop 08/21/17 at 18:29 Vancomycin HCl (Vancocin) 250 ml @ 125 mls/hr Q12H IVPB ; Start 08/22/17 at 03 :30 Assessment/Plan Chief Complaint/Hosp Course 1.: Atrial fibrillation with rapid ventricular response due to below 2. Hypoxemic respiratory failure status post tracheostomy 3. Sepsis probably with UTI 4. History of multiple CVA 5. Diabetes with severely elevated glucose level probably related to above 6. Dyslipidemia 7. Encephalopathy 8. Severe lactic acidosis 9. Mildly abnormal troponin most likely secondary to above: Rule out acute myocardial infarction Recommendations: We will check a digoxin level IN AM again and if it is not elevated digoxin IV will be added. Antibiotic is being managed as per internal medicine. Respiratory care will be continued. Patient will be started on Cardizem drip to control the heart rate better. cont po cardizem and metoprolol. hold lisinopril to avoid hypotension. hold provigil due to tachycardia. change cardizem to 60 q 6 hours po We will continue to closely monitor on telemetry. Thank you for his referral. I will continue to follow along with you. KATHY MITTAL MD [facility] Problems: KATHY MITTAL MD Aug 21, 2017 15:28
[2017-08-21] MEDS ORDERED: VANCOMYCIN 1.5 GM in SOD CHLORIDE 0.9% 250 ML IVPB ONE (15:30)
[2017-08-21] MEDS: MAGNESIUM HYDROXIDE 30ML CUP GTB SCH (17:02)
[2017-08-21] MEDS: DILTIAZEM 60 MG TAB GTB SCH (17:04)
[2017-08-21] MEDS: ATORVASTATIN 40 MG TAB GTB SCH (20:57)
[2017-08-21] MEDS: DOCUSATE SODIUM 10 MG/ML (10ML CUP) GTB SCH (20:57)
[2017-08-21] MEDS: TAMSULOSIN (SR) 0.4 MG CAP PO SCH (20:57)
[2017-08-22] VITALS (66 sets, daily range): BP systolic 97–141; BP diastolic 50–92; PULSE 71–125; RESP 9–24
[2017-08-22] MEDS: ACCU-CHEK XX SCH ×24 (00:26→22:48)
[2017-08-22] MEDS: METOPROLOL 25 MG TAB GTB SCH ×4 (00:26→17:18)
[2017-08-22] MEDS: SUCRALFATE (100 MG/ML) 10ML CUP GTB SCH ×4 (00:27→17:18)
[2017-08-22] MEDS: DILTIAZEM 60 MG TAB GTB SCH ×4 (00:29→17:18)
[2017-08-22] MEDS: VANCOMYCIN 1 GM in NS 250 ML IVPB SCH ×2 (03:36→14:34)
[2017-08-22] MEDS: DILTIAZEM-D5W 125MG/125ML DRIP 125 ML IV SCH (04:47)
[2017-08-22 05:10] LABS: BASOPHILS % 0.3 % (0.0-2.0); EOSINOPHILS # 0.1 10^3/ul (0.0-0.5); EOSINOPHILS % 0.4 % (0.0-7.0); HEMATOCRIT 28.9 % (42.0-52.0); HEMOGLOBIN 9.3 g/dl (14.0-18.0); LYMPHOCYTES # 2.2 10^3/ul (0.8-2.9); LYMPHOCYTES % 18.9 % (15.0-51.0); MEAN CORPUSCULAR HEMOGLOBIN 28.1 pg (29.0-33.0); MEAN CORPUSCULAR HGB CONC 32.2 g/dl (32.0-37.0); MEAN CORPUSCULAR VOLUME 87.3 fl (82.0-101.0); MEAN PLATELET VOLUME 11.8 fl (7.4-10.4); MONOCYTE # 0.7 10^3/ul (0.3-0.9); NEUTROPHIL # 8.7 10^3/ul (1.6-7.5); NEUTROPHILS % 73.9 % (39.0-77.0); PLATELET COUNT 150 10^3/UL (140-415); RED BLOOD COUNT 3.31 10^6/ul (4.70-6.10); RED CELL DISTRIBUTION WIDTH 17.1 % (11.5-14.5); WHITE BLOOD COUNT 11.7 10^3/ul (4.8-10.8)
[2017-08-22 05:29] LABS: ALBUMIN 2.7 g/dl (3.3-4.9); ALBUMIN/GLOBULIN RATIO 0.96; BILIRUBIN,INDIRECT 0.3 mg/dl (0-1.1); BILIRUBIN,TOTAL 0.3 mg/dl (0.2-1.3); CALCIUM 8.4 mg/dl (8.4-10.2); CREATININE 0.86 mg/dl (0.61-1.24); TOTAL PROTEIN 5.5 g/dl (6.1-8.1)
[2017-08-22] MEDS ORDERED: POTASSIUM CHLORIDE 20 MEQ POWDER FOR ORAL SOLN GTB ONE (07:00)
[2017-08-22 07:01] LABS: MAGNESIUM 2.8 mg/dl (1.7-2.5); PHOSPHORUS 2.5 mg/dl (2.5-4.9)
--- NOTE | 2017-08-22 08:10 | CONS ---
Date/Time of Note Date/Time of Note DATE: 08/22/17 TIME: 08:07 Consult Date/Type/Reason Admit Date/Time Aug 20, 2017 at 16:26 Initial Consult Date 08/21/17 Type of Consultation: cardiology Ordering Provider: NAVEEN MAR DO Subjective cardiology follow up note: S: D/ W staff and rhythm was reviewed. pt remains in AFIB heart rate has remained stable now and patient was just taken off of the Cardizem drip. He is still on metoprolol and Cardizem p.o. dose. pt s/p trach and nonverbal. O: General: Status post tracheostomy on oxygen now HEENT: NC/AT. pupils are equal. round. NECK: NO JVD. no stridor. CV: Irregularly irregular. Tachycardic.. systolic murmur; no gallop or rubs. PULM: no wheezing . Mild rhonchi. GI: SOFT, NT, ND, no rebound or guarding. Status post PEG placement Extremity: trace B/L LE edema. no clubbing. neuro: Lethargic. Opens his eyes to verbal stimuli Psych: calm and pleasant rectal: deferred : normal male EKG: A. fib with rapid ventricular response. ST-T wave abnormalities suggestive of ischemia echo reviewed personally: 1. Normal left ventricular cavity size. Mild concentric left ventricular hypertrophy. Mild global left ventricular systolic dysfunction. Ejection fraction is visually estimated at 45-50 %. Abnormal Diastolic Function. 2. There is moderate enlargement of left atrium. 3. Mild mitral leaflet calcification. Mild mitral annular calcification. Trace mitral regurgitation. 4. Normal appearance of the aortic valve. No significant aortic stenosis or insufficiency. 5. Normal appearance of the tricuspid valve. Estimated peak PA systolic pressure 36 mmHg. There is mild tricuspid regurgitation. 6. Inferior vena cava without respiratory collapse, however, patient on ventilator. Objective Vital Signs Date Time Temp Pulse Resp B/P Pulse Ox O2 Delivery O2 Flow Rate FiO2 08/22/17 08:00 40 08/22/17 07:51 85 21 100 08/22/17 06:00 123/65 Mechanical Ventilator 08/22/17 04:00 100.2 Intake and Output 08/21/17 08/21/17 08/22/17 15:00 23:00 07:00 Intake Total 599.1 ml 1140.6 ml 1096 ml Output Total 410 ml 400 ml 310 ml Balance 189.1 ml 740.6 ml 786 ml Results/Medications Result Diagram: 08/22/17 0430 08/22/17 0430 Results 24 hrs Laboratory Tests Test 08/21/17 08:27 08/21/17 09:19 08/21/17 09:38 08/21/17 11:42 Bedside Glucose 324 H 379 H 348 H Lactic Acid Level 3.0 *H Test 08/21/17 13:01 08/21/17 14:04 08/21/17 15:04 08/21/17 15:45 Bedside Glucose 332 H 309 H 299 H 256 H Test 08/21/17 17:01 08/21/17 18:08 08/21/17 18:46 08/21/17 21:02 Bedside Glucose 222 H 195 164 131 Test 08/21/17 22:58 08/22/17 02:03 08/22/17 03:38 08/22/17 04:30 Bedside Glucose 118 125 144 White Blood Count 11.7 H Red Blood Count 3.31 L Hemoglobin 9.3 L Hematocrit 28.9 L Mean Corpuscular Volume 87.3 Mean Corpuscular Hemoglobin 28.1 L Mean Corpuscular Hemoglobin Concent 32.2 Red Cell Distribution Width 17.1 H Platelet Count 150 Mean Platelet Volume 11.8 H Neutrophils % 73.9 Lymphocytes % 18.9 Monocytes % 6.0 Eosinophils % 0.4 Basophils % 0.3 Nucleated Red Blood Cells % 0.0 Neutrophils # 8.7 H Lymphocytes # 2.2 Monocytes # 0.7 Eosinophils # 0.1 Basophils # 0.0 Nucleated Red Blood Cells # 0.0 Sodium Level 151 H Potassium Level 3.0 L Chloride Level 118 H Carbon Dioxide Level 25 Anion Gap 11 Blood Urea Nitrogen 28 H Creatinine 0.86 Glucose Level 117 # Calcium Level 8.4 Phosphorus Level 2.5 Magnesium Level 2.8 H Total Bilirubin 0.3 Direct Bilirubin 0.00 Indirect Bilirubin 0.3 Aspartate Amino Transf (AST/SGOT) 16 Alanine Aminotransferase (ALT/SGPT) 29 Alkaline Phosphatase 58 Total Protein 5.5 L Albumin 2.7 L Globulin 2.80 Albumin/Globulin Ratio 0.96 Digoxin Level 1.0 Test 08/22/17 05:59 08/22/17 07:32 Bedside Glucose 121 117 Medications Current Medications Diltiazem HCl (Cardizem-D5W 125 Mg/125 ml Drip) 125 ml @ 5 mls/hr TITRATE IV Last administered on 08/22/17 04:47; Admin Dose 10 MLS/HR; Start 08/20/17 at 16:30 Acetaminophen (Tylenol Liquid) 650 mg Q4H PRN GTB PAIN; Start 08/20/17 at 18: 00 Atorvastatin Calcium (Lipitor) 40 mg QHS GTB Last administered on 08/21/17 20 :57; Admin Dose 40 MG; Start 08/20/17 at 21:00 Bisacodyl (Dulcolax Supp) 10 mg DAILY [place] Last administered on 08/21/17 08:55 ; Admin Dose 10 MG; Start 08/21/17 at 09:00 Chlorhexidine Gluconate (Peridex) 15 ml Q12 MM Last administered on 08/21/17 20:58; Admin Dose 15 ML; Start 08/20/17 at 21:00 Finasteride (Proscar) 5 mg DAILY PEG Last administered on 08/21/17 08:55; Admin Dose 5 MG; Start 08/21/17 at 09:00 Acetaminophen/ Hydrocodone Bitart ([place] (5/325)) 1 tab Q4 PRN GTB apin; Start 08/20/17 at 17:00 Levetiracetam (Keppra) 125 mg Q12 PO Last administered on 08/21/17 20:57; Admin Dose 125 MG; Start 08/20/17 at 21:00 Lisinopril (Zestril) 10 mg DAILY GTB Last administered on 08/21/17 08:55; Admin Dose 10 MG; Start 08/21/17 at 09:00; Status Future Hold Magnesium Hydroxide (Milk Of Mag) 30 ml Q24H GTB Last administered on 17:02; Admin Dose 30 ML; Start 08/20/17 at 17:00 Metoprolol Tartrate (Lopressor) 25 mg Q6 GTB Last administered on 08/22/17 05 :57; Admin Dose 25 MG; Start 08/20/17 at 18:00 Modafinil (Provigil) 50 mg DAILY GTB ; Start 08/21/17 at 09:00; Status Future Hold Multivitamins Therapeutic (Theragran) 1 tab DAILY GTB Last administered on 08:54; Admin Dose 1 TAB; Start 08/21/17 at 09:00 Sucralfate (Carafate Susp) 1 gm Q6 GTB Last administered on 08/22/17 05:56; Admin Dose 1 GM; Start 08/20/17 at 18:30 Tamsulosin HCl (Flomax) 0.4 mg QHS PO Last administered on 08/21/17 20:57; Admin Dose 0.4 MG; Start 08/20/17 at 21:00 Lansoprazole 30 mg 30 mg BID GTB Last administered on 08/21/17 20:57; Admin Dose 30 MG; Start 08/20/17 at 21:00 Cefepime HCl (Maxipime 1gm/50 ml (Pmx)) 50 ml @ 100 mls/hr BID IVPB Last administered on 08/21/17 20:57; Admin Dose 100 MLS/HR; Start 08/20/17 at 21: 00 Miscellaneous Information 1 ea NOTE XX ; Start 08/20/17 at 18:30 Glucose (Glutose) 15 gm Q15M PRN PO DECREASED GLUCOSE; Start 08/20/17 at 18:30 Glucose (Glutose) 22.5 gm Q15M PRN PO DECREASED GLUCOSE; Start 08/20/17 at 18: 30 Dextrose (D50w Syringe) 25 ml Q15M PRN IV DECREASED GLUCOSE; Start 08/20/17 at 18:30 Dextrose (D50w Syringe) 50 ml Q15M PRN IV DECREASED GLUCOSE; Start 08/20/17 at 18:30 Glucagon (Glucagen) 1 mg Q15M PRN IM DECREASED GLUCOSE; Start 08/20/17 at 18: 30 Glucose (Glutose) 15 gm Q15M PRN BUCCAL DECREASED GLUCOSE; Start 08/20/17 at 18:30 Docusate Sodium (Colace Liquid Cup) 100 mg BID GTB Last administered on 20:57; Admin Dose 100 MG; Start 08/21/17 at 21:00 Diagnostic Test (Pha) (Accu-Chek) 1 ea Q1H XX Last administered on 08/22/17 06:09; Admin Dose 1 EA; Start 08/21/17 at 10:30 Dextrose (D50w Syringe) 25 ml Q15M PRN IV Till BS 80 mg/dL or above x2; Start 08/21/17 at 10:30 Dextrose (D50w Syringe) 50 ml Q15M PRN IV Till BS 80 mg/dL or above x2; Start 08/21/17 at 10:30 Fluconazole 100 mg 100 mg DAILY PO ; Start 08/22/17 at 09:00 Vancomycin HCl (Vancocin) 250 ml @ 125 mls/hr Q12H IVPB Last administered on 08/22/17 03:36; Admin Dose 125 MLS/HR; Start 08/22/17 at 03:30 Diltiazem HCl (Cardizem) 60 mg Q6 GTB Last administered on 08/22/17 05:57; Admin Dose 60 MG; Start 08/21/17 at 18:00 Assessment/Plan Chief Complaint/Hosp Course 1.: Atrial fibrillation with rapid ventricular response due to below 2. Hypoxemic respiratory failure status post tracheostomy 3. Sepsis probably with UTI 4. History of multiple CVA 5. Diabetes with severely elevated glucose level probably related to above 6. Dyslipidemia 7. Encephalopathy 8. Severe lactic acidosis 9. Mildly abnormal troponin most likely secondary to above: Rule out acute myocardial infarction Recommendations: . Antibiotic is being managed as per internal medicine. Respiratory care will be continued. Patient will be started on Cardizem drip prn to control the heart rate better cont po cardizem and metoprolol. hold lisinopril to avoid hypotension . hold provigil due to tachycardia. We will continue to closely monitor on telemetry. Thank you for his referral. I will continue to follow along with you. KATHY MITTAL MD [facility] Problems: KATHY MITTAL MD Aug 22, 2017 08:10
[2017-08-22] MEDS: BISACODYL 10 MG SUPP PR SCH (08:19)
[2017-08-22] MEDS: LEVETIRACETAM 250 MG TAB PO SCH ×2 (08:19→20:20)
[2017-08-22] MEDS: DOCUSATE SODIUM 10 MG/ML (10ML CUP) GTB SCH ×2 (08:19→20:19)
[2017-08-22] MEDS: CHLORHEXIDINE GLUCONATE 15 ML UD CUP MM SCH ×2 (08:19→20:20)
[2017-08-22] MEDS: MULTIVITAMINS THERAPEUTIC TAB GTB SCH (08:19)
[2017-08-22] MEDS: CEFEPIME 1GM/50 ML (PMX) 50 ML IVPB SCH ×2 (08:19→20:20)
[2017-08-22] MEDS: FLUCONAZOLE 100 MG TAB PO SCH (08:19)
[2017-08-22] MEDS: FINASTERIDE 5 MG TAB PEG SCH (08:19)
[2017-08-22] MEDS: LANSOPRAZOLE 30 MG CAP GTB SCH ×2 (08:19→20:20)
[2017-08-22] MEDS ORDERED: DILTIAZEM-D5W 125MG/125ML DRIP 125 ML IV SCH (11:00)
--- NOTE | 2017-08-22 11:00 | PN ---
DATE: 08/22/2017 SUBJECTIVE: The patient remains in critical but stable condition, remains on insulin drip. No othe r acute events noted. OBJECTIVE: VITAL SIGNS: Blood pressure is 123/65, respiration 22, pulse 111, temperature 100.2. HEENT: Head is normocephalic. NECK: Supple. HEART: Regular rate. LUNGS: Show diminished breath sounds at base. ABDOMEN: Soft, nontender to palpation. No rebound or guarding. EXTREMITIES: Negative for clubbing, cyanosis. No edema. DERMATOLOGIC: No rashes. MUSCULOSKELETAL: No joint effusions. NEUROLOGIC: No change in exam. MEDICATIONS: The patient's medications have been reviewed. LABORATORY DATA: Showed sodium 151, potassium 3.0, chloride 118, BUN 28, creatinine 0.86. White co unt 11.7, hemoglobin 9.3, hematocrit 28.9, platelet count is 150. The patient's urine cultures are positive for yeast. Blood cultures gram-positive cocci. ASSESSMENT AND PLAN: 1. Sepsis, etiology secondary to bacteremia and fungal urinary tract infection. Continue current a ntibiotic and antifungal therapy. Appreciate infectious disease evaluation. The patient's lactic a johnathan levels remain elevated but improving. Continue to monitor. 2. Lactic acidosis secondary to sepsis. Levels remain elevated, continue current antibiotic and an tifungal therapy, monitor closely. 3. Atrial fibrillation with rapid rate. Continue current medical management. 4. Ventilator dependent respiratory failure. Vent settings and ABG is reviewed. Continue to monit or. Follow up with pulmonary. 5. Status post percutaneous endoscopic gastrostomy. Continue tube feedings. 6. Acute on chronic encephalopathy. Etiology is toxic metabolic. Continue to monitor. 7. Hypernatremia. The patient has a free water deficit of approximately 2.5 liters. Will increase free water flushes to 400 mL every 4 hours. 8. Anemia. Monitor hemoglobin and hematocrit levels. 9. Diabetes. The patient is currently on an insulin drip. Continue algorithm protocol. Continue Lantus. 10. Seizure disorder. Continue Keppra. 11. History of coronary artery disease. 12. Hypokalemia, replete with potassium chloride. 13. Benign prostatic hypertrophy. Continue Flomax. 14. Hypertension. Continue current blood pressure regimen. 15. Elevated troponin, possible demand ischemia, non ST elevation myocardial infarction. Continue medical management and follow up with cardiology. 16. Gastrointestinal and deep venous thrombosis prophylaxis. Continue proton pump inhibitors and s equential leg squeezers. Dictated By: NAVEEN LAYTON/NERY Conf#: [id number] DID#: [id number]
--- NOTE | 2017-08-22 11:14 | CONS ---
Date/Time of Note Date/Time of Note DATE: 08/22/17 TIME: 11:12 Consult Date/Type/Reason Admit Date/Time Aug 20, 2017 at 16:26 Initial Consult Date 08/21/17 Type of Consultation: pulmonary Ordering Provider: NAVEEN MAR The patient had atrial fibrillation with rapid ventricular rate overnight. Required initiation of diltiazem drip. Remains comfortable this morning on IV rate control. Objective Vital Signs Date Time Temp Pulse Resp B/P Pulse Ox O2 Delivery O2 Flow Rate FiO2 08/22/17 08:59 91 22 100 08/22/17 08:00 40 08/22/17 06:00 123/65 Mechanical Ventilator 08/22/17 04:00 100.2 Intake and Output 08/21/17 08/21/17 08/22/17 14:59 22:59 06:59 Intake Total 550.8 ml 1142.6 ml 1159 ml Output Total 360 ml 400 ml 360 ml Balance 190.8 ml 742.6 ml 799 ml Exam PHYSICAL EXAMINATION GENERAL: Elderly gentleman, mechanical ventilation via tracheostomy VITAL SIGNS: see below. HEENT: Pupils equal, round, and reactive to light. Tracheostomy site clean and intact. CARDIAC: S1, S2, 1/6 systolic ejection murmur CHEST: Diminished air entry bilaterally. ABDOMEN: Mildly distended. Bowel sounds present no guarding or rebound EXTREMITIES: No cyanosis, clubbing edema +1 NEUROLOGIC: Generalized weakness Results/Medications Result Diagram: 08/22/17 0430 08/22/17 0430 Results 24 hrs Laboratory Tests Test 08/21/17 11:42 08/21/17 13:01 08/21/17 14:04 08/21/17 15:04 Bedside Glucose 348 H 332 H 309 H 299 H Test 08/21/17 15:45 08/21/17 17:01 08/21/17 18:08 08/21/17 18:46 Bedside Glucose 256 H 222 H 195 164 Test 08/21/17 21:02 08/21/17 22:58 08/22/17 02:03 08/22/17 03:38 Bedside Glucose 131 118 125 144 Test 08/22/17 04:30 08/22/17 05:59 08/22/17 07:32 08/22/17 08:23 White Blood Count 11.7 H Red Blood Count 3.31 L Hemoglobin 9.3 L Hematocrit 28.9 L Mean Corpuscular Volume 87.3 Mean Corpuscular Hemoglobin 28.1 L Mean Corpuscular Hemoglobin Concent 32.2 Red Cell Distribution Width 17.1 H Platelet Count 150 Mean Platelet Volume 11.8 H Neutrophils % 73.9 Lymphocytes % 18.9 Monocytes % 6.0 Eosinophils % 0.4 Basophils % 0.3 Nucleated Red Blood Cells % 0.0 Neutrophils # 8.7 H Lymphocytes # 2.2 Monocytes # 0.7 Eosinophils # 0.1 Basophils # 0.0 Nucleated Red Blood Cells # 0.0 Sodium Level 151 H Potassium Level 3.0 L Chloride Level 118 H Carbon Dioxide Level 25 Anion Gap 11 Blood Urea Nitrogen 28 H Creatinine 0.86 Glucose Level 117 # Calcium Level 8.4 Phosphorus Level 2.5 Magnesium Level 2.8 H Total Bilirubin 0.3 Direct Bilirubin 0.00 Indirect Bilirubin 0.3 Aspartate Amino Transf (AST/SGOT) 16 Alanine Aminotransferase (ALT/SGPT) 29 Alkaline Phosphatase 58 Total Protein 5.5 L Albumin 2.7 L Globulin 2.80 Albumin/Globulin Ratio 0.96 Digoxin Level 1.0 Bedside Glucose 121 117 114 Test 08/22/17 09:08 08/22/17 10:04 Lactic Acid Level 2.5 *H Bedside Glucose 143 Medications Current Medications Acetaminophen (Tylenol Liquid) 650 mg Q4H PRN GTB PAIN; Start 08/20/17 at 18: 00 Atorvastatin Calcium (Lipitor) 40 mg QHS GTB Last administered on 08/21/17 20 :57; Admin Dose 40 MG; Start 08/20/17 at 21:00 Bisacodyl (Dulcolax Supp) 10 mg DAILY [place] Last administered on 08/22/17 08:19 ; Admin Dose 10 MG; Start 08/21/17 at 09:00 Chlorhexidine Gluconate (Peridex) 15 ml Q12 MM Last administered on 08/22/17 08:19; Admin Dose 15 ML; Start 08/20/17 at 21:00 Finasteride (Proscar) 5 mg DAILY PEG Last administered on 08/22/17 08:19; Admin Dose 5 MG; Start 08/21/17 at 09:00 Acetaminophen/ Hydrocodone Bitart ([place] (5/325)) 1 tab Q4 PRN GTB apin; Start 08/20/17 at 17:00 Levetiracetam (Keppra) 125 mg Q12 PO Last administered on 08/22/17 08:19; Admin Dose 125 MG; Start 08/20/17 at 21:00 Lisinopril (Zestril) 10 mg DAILY GTB Last administered on 08/21/17 08:55; Admin Dose 10 MG; Start 08/21/17 at 09:00; Status Future Hold Magnesium Hydroxide (Milk Of Mag) 30 ml Q24H GTB Last administered on 17:02; Admin Dose 30 ML; Start 08/20/17 at 17:00 Metoprolol Tartrate (Lopressor) 25 mg Q6 GTB Last administered on 08/22/17 05 :57; Admin Dose 25 MG; Start 08/20/17 at 18:00 Modafinil (Provigil) 50 mg DAILY GTB ; Start 08/21/17 at 09:00; Status Future Hold Multivitamins Therapeutic (Theragran) 1 tab DAILY GTB Last administered on 08:19; Admin Dose 1 TAB; Start 08/21/17 at 09:00 Sucralfate (Carafate Susp) 1 gm Q6 GTB Last administered on 08/22/17 05:56; Admin Dose 1 GM; Start 08/20/17 at 18:30 Tamsulosin HCl (Flomax) 0.4 mg QHS PO Last administered on 08/21/17 20:57; Admin Dose 0.4 MG; Start 08/20/17 at 21:00 Lansoprazole 30 mg 30 mg BID GTB Last administered on 08/22/17 08:19; Admin Dose 30 MG; Start 08/20/17 at 21:00 Cefepime HCl (Maxipime 1gm/50 ml (Pmx)) 50 ml @ 100 mls/hr BID IVPB Last administered on 08/22/17 08:19; Admin Dose 100 MLS/HR; Start 08/20/17 at 21: 00 Miscellaneous Information 1 ea NOTE XX ; Start 08/20/17 at 18:30 Glucose (Glutose) 15 gm Q15M PRN PO DECREASED GLUCOSE; Start 08/20/17 at 18:30 Glucose (Glutose) 22.5 gm Q15M PRN PO DECREASED GLUCOSE; Start 08/20/17 at 18: 30 Dextrose (D50w Syringe) 25 ml Q15M PRN IV DECREASED GLUCOSE; Start 08/20/17 at 18:30 Dextrose (D50w Syringe) 50 ml Q15M PRN IV DECREASED GLUCOSE; Start 08/20/17 at 18:30 Glucagon (Glucagen) 1 mg Q15M PRN IM DECREASED GLUCOSE; Start 08/20/17 at 18: 30 Glucose (Glutose) 15 gm Q15M PRN BUCCAL DECREASED GLUCOSE; Start 08/20/17 at 18:30 Docusate Sodium (Colace Liquid Cup) 100 mg BID GTB Last administered on 08:19; Admin Dose 100 MG; Start 08/21/17 at 21:00 Diagnostic Test (Pha) (Accu-Chek) 1 ea Q1H XX Last administered on 08/22/17 08:24; Admin Dose 1 EA; Start 08/21/17 at 10:30 Dextrose (D50w Syringe) 25 ml Q15M PRN IV Till BS 80 mg/dL or above x2; Start 08/21/17 at 10:30 Dextrose (D50w Syringe) 50 ml Q15M PRN IV Till BS 80 mg/dL or above x2; Start 08/21/17 at 10:30 Fluconazole 100 mg 100 mg DAILY PO Last administered on 08/22/17 08:19; Admin Dose 100 MG; Start 08/22/17 at 09:00 Vancomycin HCl (Vancocin) 250 ml @ 125 mls/hr Q12H IVPB Last administered on 08/22/17 03:36; Admin Dose 125 MLS/HR; Start 08/22/17 at 03:30 Diltiazem HCl (Cardizem) 60 mg Q6 GTB Last administered on 08/22/17 05:57; Admin Dose 60 MG; Start 08/21/17 at 18:00 Miscellaneous Information VANCOMYCIN TROUGH ON 08/10... ONCE ONCE XX ; Start at 02:30; Stop 08/23/17 at 02:31 Diltiazem HCl (Cardizem-D5W 125 Mg/125 ml Drip) 125 ml @ 5 mls/hr TITRATE IV ; Start 08/22/17 at 11:00 Assessment/Plan Chief Complaint/Hosp Course Assessment 1. Atrial for ablation with rapid ventricular rate 2. Vent dependent respiratory failure 3. Chronic encephalopathy 4. Dysphagia with G-tube 5. Hypernatremia and hypokalemia Plan 1. Continue rate control per cardiology 2. Continue mechanical ventilation not for weaning. 3. Continue tube feeding as tolerated 4. Tube feeding and electrolyte replacement per primary team Critical care time 40 minutes. Problems: THANG WHITESIDE MD, [facility] Aug 22, 2017 11:14
[2017-08-22] MEDS: INSULIN HUMAN REGULAR 100 UNIT in SOD CHLORIDE 0.9% 99 ML IV SCH (14:35)
[2017-08-22] MEDS: NYSTATIN 30 GM POWDER BTL TOP SCH (15:17)
[2017-08-22] MEDS: MAGNESIUM HYDROXIDE 30ML CUP GTB SCH (17:18)
[2017-08-22] MEDS: BALSAM PERU/CASTOR OIL 60 GM TUBE TOP SCH (17:18)
[2017-08-22] MEDS: TAMSULOSIN (SR) 0.4 MG CAP PO SCH (20:20)
[2017-08-22] MEDS: ATORVASTATIN 40 MG TAB GTB SCH (20:21)
[2017-08-23] VITALS (33 sets, daily range): BP systolic 102–147; BP diastolic 50–117; PULSE 80–130; RESP 16–25
[2017-08-23] MEDS: ACCU-CHEK XX SCH ×8 (00:03→06:30)
[2017-08-23] MEDS: NYSTATIN 30 GM POWDER BTL TOP SCH ×3 (00:15→21:06)
[2017-08-23] MEDS: METOPROLOL 25 MG TAB GTB SCH ×2 (00:16→05:44)
[2017-08-23] MEDS: SUCRALFATE (100 MG/ML) 10ML CUP GTB SCH ×4 (00:16→17:11)
[2017-08-23] MEDS: DILTIAZEM 60 MG TAB GTB SCH ×4 (00:16→17:12)
[2017-08-23 03:04] LABS: BASOPHILS % 0.2 % (0.0-2.0); EOSINOPHILS # 0.2 10^3/ul (0.0-0.5); EOSINOPHILS % 2.1 % (0.0-7.0); HEMATOCRIT 29.1 % (42.0-52.0); LYMPHOCYTES # 2.3 10^3/ul (0.8-2.9); LYMPHOCYTES % 21.9 % (15.0-51.0); MEAN CORPUSCULAR HEMOGLOBIN 26.9 pg (29.0-33.0); MEAN CORPUSCULAR HGB CONC 30.9 g/dl (32.0-37.0); MEAN CORPUSCULAR VOLUME 87.1 fl (82.0-101.0); MONOCYTE # 0.6 10^3/ul (0.3-0.9); MONOCYTES % 5.9 % (0.0-11.0); NEUTROPHIL # 7.1 10^3/ul (1.6-7.5); NEUTROPHILS % 69.6 % (39.0-77.0); PLATELET COUNT 142 10^3/UL (140-415); RED BLOOD COUNT 3.34 10^6/ul (4.70-6.10); WHITE BLOOD COUNT 10.3 10^3/ul (4.8-10.8)
[2017-08-23 03:30] LABS: CALCIUM 8.2 mg/dl (8.4-10.2); CREATININE 0.75 mg/dl (0.61-1.24); MAGNESIUM 2.5 mg/dl (1.7-2.5); PHOSPHORUS 2.6 mg/dl (2.5-4.9)
[2017-08-23] MEDS: VANCOMYCIN 1 GM in NS 250 ML IVPB SCH ×2 (03:51→17:11)
[2017-08-23] MEDS ORDERED: POTASSIUM CHLORIDE 20 MEQ POWDER FOR ORAL SOLN GTB ONE (07:30)
[2017-08-23] MEDS ORDERED: POTASSIUM CHLORIDE (SR) 10 MEQ TAB PO ONE (08:00)
[2017-08-23] MEDS: CHLORHEXIDINE GLUCONATE 15 ML UD CUP MM SCH ×2 (08:34→20:19)
[2017-08-23] MEDS: BALSAM PERU/CASTOR OIL 60 GM TUBE TOP SCH (08:34)
[2017-08-23] MEDS: CEFEPIME 1GM/50 ML (PMX) 50 ML IVPB SCH ×2 (08:34→20:18)
[2017-08-23] MEDS: LEVETIRACETAM 250 MG TAB PO SCH ×2 (08:35→20:19)
[2017-08-23] MEDS: FINASTERIDE 5 MG TAB PEG SCH (08:35)
[2017-08-23] MEDS: LANSOPRAZOLE 30 MG CAP GTB SCH ×2 (08:35→20:18)
[2017-08-23] MEDS: MULTIVITAMINS THERAPEUTIC TAB GTB SCH (08:35)
[2017-08-23] MEDS: FLUCONAZOLE 100 MG TAB PO SCH (08:35)
[2017-08-23] MEDS: INSULIN ASPART [NOVOLOG] 3 ML PEN SC SCH ×4 (08:36→20:26)
[2017-08-23] MEDS: INSULIN GLARGINE [LANtus] 3 ML PEN SC SCH (08:37)
[2017-08-23] MEDS: DOCUSATE SODIUM 10 MG/ML (10ML CUP) GTB SCH ×2 (08:37→20:17)
[2017-08-23] MEDS: BISACODYL 10 MG SUPP PR SCH (08:37)
--- NOTE | 2017-08-23 10:42 | CONS ---
Date/Time of Note Date/Time of Note DATE: 08/23/17 TIME: 10:42 Consult Date/Type/Reason Admit Date/Time Aug 20, 2017 at 16:26 Initial Consult Date 08/21/17 Type of Consultation: pulmonary Ordering Provider: NAVEEN MAR DO Subjective Patient comfortable this morning. Awake alert. Off diltiazem drip. Heart rate in the 120s. Objective Vital Signs Date Time Temp Pulse Resp B/P Pulse Ox O2 Delivery O2 Flow Rate FiO2 08/23/17 09:00 122 22 147/72 100 Mechanical Ventilator 08/23/17 08:53 30 08/23/17 08:00 98.6 Intake and Output 08/22/17 08/22/17 08/23/17 15:00 23:00 07:00 Intake Total 1177 ml 934 ml 1376 ml Output Total 445 ml 425 ml 460 ml Balance 732 ml 509 ml 916 ml Results/Medications Result Diagram: 08/23/17 0241 08/23/17 0241 Results 24 hrs Laboratory Tests Test 08/22/17 11:48 08/22/17 13:58 08/22/17 16:05 08/22/17 18:05 Bedside Glucose 150 151 130 127 Test 08/22/17 20:13 08/22/17 22:02 08/23/17 00:01 08/23/17 01:53 Bedside Glucose 111 114 115 130 Test 08/23/17 02:41 08/23/17 03:41 08/23/17 05:37 08/23/17 08:10 White Blood Count 10.3 Red Blood Count 3.34 L Hemoglobin 9.0 L Hematocrit 29.1 L Mean Corpuscular Volume 87.1 Mean Corpuscular Hemoglobin 26.9 L Mean Corpuscular Hemoglobin Concent 30.9 L Red Cell Distribution Width 17.0 H Platelet Count 142 Mean Platelet Volume 12.0 H Neutrophils % 69.6 Lymphocytes % 21.9 Monocytes % 5.9 Eosinophils % 2.1 Basophils % 0.2 Nucleated Red Blood Cells % 0.0 Neutrophils # 7.1 Lymphocytes # 2.3 Monocytes # 0.6 Eosinophils # 0.2 Basophils # 0.0 Nucleated Red Blood Cells # 0.0 Sodium Level 150 H Potassium Level 3.0 L Chloride Level 117 H Carbon Dioxide Level 26 Anion Gap 10 Blood Urea Nitrogen 21 H Creatinine 0.75 Glucose Level 110 Calcium Level 8.2 L Phosphorus Level 2.6 Magnesium Level 2.5 Vancomycin Level Trough 14.6 Bedside Glucose 116 125 161 Medications Current Medications Acetaminophen (Tylenol Liquid) 650 mg Q4H PRN GTB PAIN; Start 08/20/17 at 18: 00 Atorvastatin Calcium (Lipitor) 40 mg QHS GTB Last administered on 08/22/17 20 :21; Admin Dose 40 MG; Start 08/20/17 at 21:00 Bisacodyl (Dulcolax Supp) 10 mg DAILY [place] Last administered on 08/22/17 08:19 ; Admin Dose 10 MG; Start 08/21/17 at 09:00 Chlorhexidine Gluconate (Peridex) 15 ml Q12 MM Last administered on 08/23/17 08:34; Admin Dose 15 ML; Start 08/20/17 at 21:00 Finasteride (Proscar) 5 mg DAILY PEG Last administered on 08/23/17 08:35; Admin Dose 5 MG; Start 08/21/17 at 09:00 Acetaminophen/ Hydrocodone Bitart ([place] (5/325)) 1 tab Q4 PRN GTB apin; Start 08/20/17 at 17:00 Levetiracetam (Keppra) 125 mg Q12 PO Last administered on 08/23/17 08:35; Admin Dose 125 MG; Start 08/20/17 at 21:00 Lisinopril (Zestril) 10 mg DAILY GTB Last administered on 08/21/17 08:55; Admin Dose 10 MG; Start 08/21/17 at 09:00; Status Future Hold Magnesium Hydroxide (Milk Of Mag) 30 ml Q24H GTB Last administered on 17:18; Admin Dose 30 ML; Start 08/20/17 at 17:00 Metoprolol Tartrate (Lopressor) 25 mg Q6 GTB Last administered on 08/23/17 05 :44; Admin Dose 25 MG; Start 08/20/17 at 18:00 Modafinil (Provigil) 50 mg DAILY GTB ; Start 08/21/17 at 09:00; Status Future Hold Multivitamins Therapeutic (Theragran) 1 tab DAILY GTB Last administered on 08:35; Admin Dose 1 TAB; Start 08/21/17 at 09:00 Sucralfate (Carafate Susp) 1 gm Q6 GTB Last administered on 08/23/17 05:45; Admin Dose 1 GM; Start 08/20/17 at 18:30 Tamsulosin HCl (Flomax) 0.4 mg QHS PO Last administered on 08/22/17 20:20; Admin Dose 0.4 MG; Start 08/20/17 at 21:00 Lansoprazole 30 mg 30 mg BID GTB Last administered on 08/23/17 08:35; Admin Dose 30 MG; Start 08/20/17 at 21:00 Cefepime HCl (Maxipime 1gm/50 ml (Pmx)) 50 ml @ 100 mls/hr BID IVPB Last administered on 08/23/17 08:34; Admin Dose 100 MLS/HR; Start 08/20/17 at 21: 00 Miscellaneous Information 1 ea NOTE XX ; Start 08/20/17 at 18:30 Glucose (Glutose) 15 gm Q15M PRN PO DECREASED GLUCOSE; Start 08/20/17 at 18:30 Glucose (Glutose) 22.5 gm Q15M PRN PO DECREASED GLUCOSE; Start 08/20/17 at 18: 30 Dextrose (D50w Syringe) 25 ml Q15M PRN IV DECREASED GLUCOSE; Start 08/20/17 at 18:30 Dextrose (D50w Syringe) 50 ml Q15M PRN IV DECREASED GLUCOSE; Start 08/20/17 at 18:30 Glucagon (Glucagen) 1 mg Q15M PRN IM DECREASED GLUCOSE; Start 08/20/17 at 18: 30 Glucose (Glutose) 15 gm Q15M PRN BUCCAL DECREASED GLUCOSE; Start 08/20/17 at 18:30 Docusate Sodium (Colace Liquid Cup) 100 mg BID GTB Last administered on 20:19; Admin Dose 100 MG; Start 08/21/17 at 21:00 Dextrose (D50w Syringe) 25 ml Q15M PRN IV Till BS 80 mg/dL or above x2; Start 08/21/17 at 10:30 Dextrose (D50w Syringe) 50 ml Q15M PRN IV Till BS 80 mg/dL or above x2; Start 08/21/17 at 10:30 Fluconazole 100 mg 100 mg DAILY PO Last administered on 08/23/17 08:35; Admin Dose 100 MG; Start 08/22/17 at 09:00 Vancomycin HCl (Vancocin) 250 ml @ 125 mls/hr Q12H IVPB Last administered on 08/23/17 03:51; Admin Dose 125 MLS/HR; Start 08/22/17 at 03:30 Diltiazem HCl 60 mg 60 mg Q6 GTB Last administered on 08/23/17 05:45; Admin Dose 60 MG; Start 08/21/17 at 18:00 Diltiazem HCl (Cardizem-D5W 125 Mg/125 ml Drip) 125 ml @ 5 mls/hr TITRATE IV ; Start 08/22/17 at 11:00 Nystatin (Nystatin Powder) 1 applic BID TOP Last administered on 08/23/17 08: 37; Admin Dose 1 APPLIC; Start 08/22/17 at 15:30 Insulin Glargine (Lantus) 20 unit DAILY@08 SC Last administered on 08/23/17 08:37; Admin Dose 20 UNIT; Start 08/23/17 at 08:00 Insulin Aspart (Novolog Insulin Pen) NOVOLOG *MODERATE* ALGORI... Q4 SC Last administered on 08/23/17 08:36; Admin Dose 2 UNIT; Start 08/23/17 at 09:00 Assessment/Plan Chief Complaint/Hosp Course Assessment 1. Atrial for ablation with rapid ventricular rate 2. Vent dependent respiratory failure 3. Chronic encephalopathy 4. Dysphagia with G-tube 5. Hypernatremia and hypokalemia Plan 1. Continue rate control per cardiology 2. Continue mechanical ventilation not for weaning. 3. Continue tube feeding as tolerated 4. Tube feeding and electrolyte replacement per primary team Transfer to telemetry okay from pulmonary standpoint. Critical care time 40 minutes. Problems: THANG WHITESIDE MD, [facility] Aug 23, 2017 10:42
--- NOTE | 2017-08-23 10:55 | CONS ---
Date/Time of Note Date/Time of Note DATE: 08/23/17 TIME: 10:54 Consult Date/Type/Reason Admit Date/Time Aug 20, 2017 at 16:26 Initial Consult Date 08/21/17 Type of Consultation: cv Ordering Provider: NAVEEN MAR DO Subjective cardiology follow up note: S: D/ W staff and rhythm was reviewed. pt remains in AFIB heart rate has remained stable mostly but intermittently has been elevated. Patient off of Cardizem drip now. He is still on metoprolol and Cardizem p.o. dose. pt s/p trach and nonverbal. O: General: Status post tracheostomy on oxygen now HEENT: NC/AT. pupils are equal. round. NECK: NO JVD. no stridor. CV: Irregularly irregular. Tachycardic.. systolic murmur; no gallop or rubs. PULM: no wheezing . Mild rhonchi. GI: SOFT, NT, ND, no rebound or guarding. Status post PEG placement Extremity: trace B/L LE edema. no clubbing. neuro: Lethargic. Opens his eyes to verbal stimuli Psych: calm and pleasant rectal: deferred : normal male EKG: A. fib with rapid ventricular response. ST-T wave abnormalities suggestive of ischemia echo reviewed personally: 1. Normal left ventricular cavity size. Mild concentric left ventricular hypertrophy. Mild global left ventricular systolic dysfunction. Ejection fraction is visually estimated at 45-50 %. Abnormal Diastolic Function. 2. There is moderate enlargement of left atrium. 3. Mild mitral leaflet calcification. Mild mitral annular calcification. Trace mitral regurgitation. 4. Normal appearance of the aortic valve. No significant aortic stenosis or insufficiency. 5. Normal appearance of the tricuspid valve. Estimated peak PA systolic pressure 36 mmHg. There is mild tricuspid regurgitation. 6. Inferior vena cava without respiratory collapse, however, patient on ventilator. Objective Vital Signs Date Time Temp Pulse Resp B/P Pulse Ox O2 Delivery O2 Flow Rate FiO2 08/23/17 09:00 122 22 147/72 100 Mechanical Ventilator 08/23/17 08:53 30 08/23/17 08:00 98.6 Intake and Output 08/22/17 08/22/17 08/23/17 15:00 23:00 07:00 Intake Total 1177 ml 934 ml 1376 ml Output Total 445 ml 425 ml 460 ml Balance 732 ml 509 ml 916 ml Results/Medications Result Diagram: 08/23/17 0241 08/23/17 0241 Results 24 hrs Laboratory Tests Test 08/22/17 11:48 08/22/17 13:58 08/22/17 16:05 08/22/17 18:05 Bedside Glucose 150 151 130 127 Test 08/22/17 20:13 08/22/17 22:02 08/23/17 00:01 08/23/17 01:53 Bedside Glucose 111 114 115 130 Test 08/23/17 02:41 08/23/17 03:41 08/23/17 05:37 08/23/17 08:10 White Blood Count 10.3 Red Blood Count 3.34 L Hemoglobin 9.0 L Hematocrit 29.1 L Mean Corpuscular Volume 87.1 Mean Corpuscular Hemoglobin 26.9 L Mean Corpuscular Hemoglobin Concent 30.9 L Red Cell Distribution Width 17.0 H Platelet Count 142 Mean Platelet Volume 12.0 H Neutrophils % 69.6 Lymphocytes % 21.9 Monocytes % 5.9 Eosinophils % 2.1 Basophils % 0.2 Nucleated Red Blood Cells % 0.0 Neutrophils # 7.1 Lymphocytes # 2.3 Monocytes # 0.6 Eosinophils # 0.2 Basophils # 0.0 Nucleated Red Blood Cells # 0.0 Sodium Level 150 H Potassium Level 3.0 L Chloride Level 117 H Carbon Dioxide Level 26 Anion Gap 10 Blood Urea Nitrogen 21 H Creatinine 0.75 Glucose Level 110 Calcium Level 8.2 L Phosphorus Level 2.6 Magnesium Level 2.5 Vancomycin Level Trough 14.6 Bedside Glucose 116 125 161 Medications Current Medications Acetaminophen (Tylenol Liquid) 650 mg Q4H PRN GTB PAIN; Start 08/20/17 at 18: 00 Atorvastatin Calcium (Lipitor) 40 mg QHS GTB Last administered on 08/22/17 20 :21; Admin Dose 40 MG; Start 08/20/17 at 21:00 Bisacodyl (Dulcolax Supp) 10 mg DAILY [place] Last administered on 08/22/17 08:19 ; Admin Dose 10 MG; Start 08/21/17 at 09:00 Chlorhexidine Gluconate (Peridex) 15 ml Q12 MM Last administered on 08/23/17 08:34; Admin Dose 15 ML; Start 08/20/17 at 21:00 Finasteride (Proscar) 5 mg DAILY PEG Last administered on 08/23/17 08:35; Admin Dose 5 MG; Start 08/21/17 at 09:00 Acetaminophen/ Hydrocodone Bitart ([place] (5/325)) 1 tab Q4 PRN GTB apin; Start 08/20/17 at 17:00 Levetiracetam (Keppra) 125 mg Q12 PO Last administered on 08/23/17 08:35; Admin Dose 125 MG; Start 08/20/17 at 21:00 Lisinopril (Zestril) 10 mg DAILY GTB Last administered on 08/21/17 08:55; Admin Dose 10 MG; Start 08/21/17 at 09:00; Status Future Hold Magnesium Hydroxide (Milk Of Mag) 30 ml Q24H GTB Last administered on 17:18; Admin Dose 30 ML; Start 08/20/17 at 17:00 Metoprolol Tartrate (Lopressor) 25 mg Q6 GTB Last administered on 08/23/17 05 :44; Admin Dose 25 MG; Start 08/20/17 at 18:00 Modafinil (Provigil) 50 mg DAILY GTB ; Start 08/21/17 at 09:00; Status Future Hold Multivitamins Therapeutic (Theragran) 1 tab DAILY GTB Last administered on 08:35; Admin Dose 1 TAB; Start 08/21/17 at 09:00 Sucralfate (Carafate Susp) 1 gm Q6 GTB Last administered on 08/23/17 05:45; Admin Dose 1 GM; Start 08/20/17 at 18:30 Tamsulosin HCl (Flomax) 0.4 mg QHS PO Last administered on 08/22/17 20:20; Admin Dose 0.4 MG; Start 08/20/17 at 21:00 Lansoprazole 30 mg 30 mg BID GTB Last administered on 08/23/17 08:35; Admin Dose 30 MG; Start 08/20/17 at 21:00 Cefepime HCl (Maxipime 1gm/50 ml (Pmx)) 50 ml @ 100 mls/hr BID IVPB Last administered on 08/23/17 08:34; Admin Dose 100 MLS/HR; Start 08/20/17 at 21: 00 Miscellaneous Information 1 ea NOTE XX ; Start 08/20/17 at 18:30 Glucose (Glutose) 15 gm Q15M PRN PO DECREASED GLUCOSE; Start 08/20/17 at 18:30 Glucose (Glutose) 22.5 gm Q15M PRN PO DECREASED GLUCOSE; Start 08/20/17 at 18: 30 Dextrose (D50w Syringe) 25 ml Q15M PRN IV DECREASED GLUCOSE; Start 08/20/17 at 18:30 Dextrose (D50w Syringe) 50 ml Q15M PRN IV DECREASED GLUCOSE; Start 08/20/17 at 18:30 Glucagon (Glucagen) 1 mg Q15M PRN IM DECREASED GLUCOSE; Start 08/20/17 at 18: 30 Glucose (Glutose) 15 gm Q15M PRN BUCCAL DECREASED GLUCOSE; Start 08/20/17 at 18:30 Docusate Sodium (Colace Liquid Cup) 100 mg BID GTB Last administered on 20:19; Admin Dose 100 MG; Start 08/21/17 at 21:00 Dextrose (D50w Syringe) 25 ml Q15M PRN IV Till BS 80 mg/dL or above x2; Start 08/21/17 at 10:30 Dextrose (D50w Syringe) 50 ml Q15M PRN IV Till BS 80 mg/dL or above x2; Start 08/21/17 at 10:30 Fluconazole 100 mg 100 mg DAILY PO Last administered on 08/23/17 08:35; Admin Dose 100 MG; Start 08/22/17 at 09:00 Vancomycin HCl (Vancocin) 250 ml @ 125 mls/hr Q12H IVPB Last administered on 08/23/17 03:51; Admin Dose 125 MLS/HR; Start 08/22/17 at 03:30 Diltiazem HCl 60 mg 60 mg Q6 GTB Last administered on 08/23/17 05:45; Admin Dose 60 MG; Start 08/21/17 at 18:00 Diltiazem HCl (Cardizem-D5W 125 Mg/125 ml Drip) 125 ml @ 5 mls/hr TITRATE IV ; Start 08/22/17 at 11:00 Nystatin (Nystatin Powder) 1 applic BID TOP Last administered on 08/23/17 08: 37; Admin Dose 1 APPLIC; Start 08/22/17 at 15:30 Insulin Glargine (Lantus) 20 unit DAILY@08 [place] Last administered on 08/23/17 08:37; Admin Dose 20 UNIT; Start 08/23/17 at 08:00 Insulin Aspart (Novolog Insulin Pen) NOVOLOG *MODERATE* [place]... Q4 SC Last administered on 08/23/17 08:36; Admin Dose 2 UNIT; Start 08/23/17 at 09:00 Assessment/Plan Chief Complaint/Hosp Course 1.: Atrial fibrillation with rapid ventricular response due to below 2. Hypoxemic respiratory failure status post tracheostomy 3. Sepsis probably with UTI 4. History of multiple CVA 5. Diabetes with severely elevated glucose level probably related to above 6. Dyslipidemia 7. Encephalopathy 8. Severe lactic acidosis 9. Mildly abnormal troponin most likely secondary to above: Rule out acute myocardial infarction Recommendations: . Antibiotic is being managed as per internal medicine. Respiratory care will be continued. Patient will be started on Cardizem drip prn to control the heart rate better cont po cardizem and inc metoprolol. hold lisinopril to avoid hypotension . hold provigil due to tachycardia. We will continue to closely monitor on telemetry. Thank you for his referral. I will continue to follow along with you. KATHY MITTAL MD [facility] Problems: KATHY MITTAL MD Aug 23, 2017 10:55
[2017-08-23] MEDS: METOPROLOL 50 MG TAB GTB SCH ×2 (12:08→17:11)
[2017-08-23 14:19] LABS: CALCIUM 8.1 mg/dl (8.4-10.2); CREATININE 0.67 mg/dl (0.61-1.24); POTASSIUM 3.9 mmol/L (3.5-5.1)
--- NOTE | 2017-08-23 16:50 | PN ---
DATE: 08/22/2017 SUBJECTIVE: No acute events. The patient is awake, lying comfortably in bed. He is spiking low-gr alana fevers with a T-max of 100.5. VITAL SIGNS: Heart rate 91, respirations 22, blood pressure 123/65, saturation 100 on 40 FIO2. WBC 11.7, H and H 9.3 and 28.9, platelets 150, neutrophils 73.9, BUN 28, creatinine 0.86, sodium 151, p otassium 3. MICROBIOLOGY: Blood culture on admission grew gram-positive cocci in clusters and pairs. Urine cul ture growing yeast. INDWELLINGS: The patient has trach, PEG, [place] and femoral line. ANTIMICROBIALS: 1. Cefepime. 2. Vancomycin. 3. Fluconazole. PHYSICAL EXAMINATION: GENERAL: Chronically ill-appearing, elderly man in no distress. HEENT: Head atraumatic, normocephalic. Sclerae anicteric. Buccal mucosa dry. NECK: Supple. Tracheostomy present. CHEST: Rise symmetrical. Breath sounds diminished to bases. HEART: S1, S2. ABDOMEN: Distended, bowel tones hypoactive. EXTREMITIES: Without cyanosis with trace edema. ASSESSMENT: 1. Sepsis, status post shock. 2. Bacteremia. 3. Fungal urinary tract infection. 4. Rapid atrial fibrillation, controlled with Cardizem drip. 5. Diabetes. 6. Chronic respiratory failure. 7. History of seizure disorder. PLAN: The patient remains hemodynamically stable, covered with broad spectrum antibiotics. He is a lso on fluconazole. Final cultures pending, repeat cultures are pending. Dictated By: GUERO NEUMANN [employer] CUTTING OPERATOR for [employer]NERY Conf#: [id number] DID#: [id number]
--- NOTE | 2017-08-23 16:51 | RADRPT ---
PROCEDURE: XR Chest 1 view. CLINICAL INDICATION: Shortness of breath. TECHNIQUE: Single view of the chest was obtained. COMPARISON: CHEST 08/20/2017 FINDINGS: The heart is large. Calcified atherosclerosis is noted in the aorta. Tracheostomy tube is stable an d appears in grossly appropriate location. Elevated right hemidiaphragm is identified. Blunting righ t costophrenic angle is seen. No consolidations are identified. No pneumothorax is seen. Osseous structures are intact. IMPRESSION: Cardiomegaly with calcified atherosclerosis in the aorta. Elevated right hemidiaphragm. Blunted right costophrenic angle that may reflect scarring or trace pleural effusion. RPTAT: AA .Nehemias Purcell MD, Date Time Electronically viewed and signed by .Nehemias Purcell MD, on 08/23/2017 08:29 .P/
--- NOTE | 2017-08-23 16:51 | PN ---
DATE: 08/23/2017 SUBJECTIVE: The patient is in critical but stable condition. No other acute events noted overnight . OBJECTIVE: VITAL SIGNS: Blood pressure is 121/67, respirations 17, pulse 119, temperature 98.6. I's AND O'S: The patient had 3.4 liters in, 1.3 liters out. HEENT: Head is normocephalic. NECK: Supple. HEART: Regular rate. LUNGS: Show diminished breath sounds at the base. ABDOMEN: Soft, nontender to palpation. No rebound or guarding. EXTREMITIES: Negative for clubbing, cyanosis. Trace edema. DERMATOLOGIC: No rashes. MUSCULOSKELETAL: No joint effusions. NEUROLOGIC: No change in exam. MEDICATIONS: The patient's medications have been reviewed. LABORATORY DATA: Shows white count 10.3, hemoglobin 9.0, hematocrit 29.1, platelet count is 142. S odium 150, potassium 3.0, chloride 117, BUN 21, creatinine 0.75. The patient's cultures have been r eviewed. ASSESSMENT AND PLAN: 1. Sepsis, etiology secondary to bacteremia, fungal urinary tract infection. The patient is curren tly on antimicrobial and antifungal therapy. The patient is clinically improving. He is hemodynam ically stable. Continue current treatment plan. Follow up with Infectious Disease for further lori mmendations. 2. Lactic acidosis secondary to sepsis, improving. Lactic acid levels have been trending down. Wi ll continue to monitor. 3. Hypernatremia. The patient has a free water deficit of approximately 3 liters. Continue free w ater flushes at 400 mL every 4 hours. Monitor serial sodium levels. If necessary, we will start th e patient on hypertonic fluids. 4. Hypokalemia. Continue and replete with potassium chloride 60 mEq p.o. x1. 5. Anemia. Monitor hemoglobin and hematocrit levels. 6. Ventilator dependent respiratory failure. Vent settings and ABG was reviewed. Continue to [facility]. Follow up with pulmonary. 7. Atrial fibrillation with rapid rate, improving. Continue current medical management. 8. Dysphagia, status post percutaneous endoscopic gastrostomy. Continue tube feeding. 9. Acute on chronic encephalopathy. Etiology is toxic metabolic. Continue to monitor. 10. Diabetes. The patient is on insulin drip. Will discontinue insulin drip, start the patient on Lantus 20 units at bedtime, with moderate sliding scale and will adjust Lantus and sliding scale as needed. 11. Seizure disorder. Continue Keppra. 12. Coronary artery disease. Continue medical management. 12. Benign prostatic hypertrophy. Continue Flomax. 13. Hypertension. Blood pressure controlled. 14. Elevated troponin with demand ischemia. Continue medical management. 15. History of cerebrovascular accident. 16. Previous history of GI bleed. 17. Gastrointestinal and deep venous thrombosis prophylaxis. Continue proton pump inhibitor and se quential leg squeezers. 18. Seizure disorder. Continue Keppra. DISPOSITION: We will place a [facility] evaluation for the patient. Dictated By: NAVEEN LAYTON/NERY Conf#: [id number] DID#: [id number]
--- NOTE | 2017-08-23 16:55 | PN ---
DATE: 08/23/2017 SUBJECTIVE: The patient remained stable overnight, afebrile and in no distress. VITAL SIGNS: Temperature 98.6, pulse 100, respirations 22, blood pressure 147/72, saturation 100 on 30 FIO2. WBC 10.3, H and H 9 and 29.1, platelets 142, no shift, no bands. BUN 21, creatinine 0.75. MICROBIOLOGY: Blood culture grew coagulase-negative staph species. Urine culture growing Daphne g labrata. Repeat blood cultures negative. INDWELLINGS: Trach, PEG, Dubon, midline and femoral line. ANTIMICROBIALS: The patient remains o: 1. Cefepime. 2. Vancomycin. 3. Fluconazole. PHYSICAL EXAMINATION: GENERAL: Well-developed, chronically ill-appearing, elderly man who is in no distress. HEENT: Head atraumatic, normocephalic. Sclerae anicteric. Buccal mucosa pink, dry. NECK: Supple. Tracheostomy present. CHEST: Rise symmetrical. Breath sounds diminished. HEART: S1, S2. ABDOMEN: Soft, bowel tones present. EXTREMITIES: Without cyanosis. ASSESSMENT: 1. Resolving sepsis status post shock. 2. Coagulase-negative staph bacteremia, likely contaminated specimen with repeat blood cultures neg ative. 3. Daphne glabrata urinary tract infection. 4. Rapid atrial fibrillation. 5. Diabetes. 6. Chronic respiratory failure. PLAN: The patient remains stable, off Cardizem drip. He is on appropriate coverage with antibiotic s. Dictated By: GUERO NEUMANN WATER TAXI FERRY OPERATOR for [employer] GOINS/NERY Conf#: [id number] DID#: [id number] CC: NAVEEN MAR DO;*EndCC*
[2017-08-23] MEDS: MAGNESIUM HYDROXIDE 30ML CUP GTB SCH (17:00)
[2017-08-23] MEDS: ATORVASTATIN 40 MG TAB GTB SCH (20:18)
[2017-08-23] MEDS ORDERED: INSULIN GLARGINE [LANtus] 3 ML PEN SC ONE (21:00)
[2017-08-23] MEDS: TAMSULOSIN (SR) 0.4 MG CAP PO SCH (21:06)
[2017-08-24] VITALS (20 sets, daily range): BP systolic 107–153; BP diastolic 57–78; PULSE 80–116; RESP 18–23
[2017-08-24] MEDS: METOPROLOL 50 MG TAB GTB SCH ×4 (00:38→17:09)
[2017-08-24] MEDS: SUCRALFATE (100 MG/ML) 10ML CUP GTB SCH ×4 (00:38→17:08)
[2017-08-24] MEDS: DILTIAZEM 60 MG TAB GTB SCH ×4 (00:39→17:09)
[2017-08-24] MEDS: INSULIN ASPART [NOVOLOG] 3 ML PEN SC SCH ×6 (01:44→20:56)
[2017-08-24] MEDS: VANCOMYCIN 1 GM in NS 250 ML IVPB SCH ×2 (03:37→17:08)
[2017-08-24 07:02] LABS: BASOPHIL # 0.1 10^3/ul (0.0-0.1); BASOPHILS % 0.6 % (0.0-2.0); EOSINOPHILS # 0.3 10^3/ul (0.0-0.5); EOSINOPHILS % 3.1 % (0.0-7.0); HEMATOCRIT 30.4 % (42.0-52.0); HEMOGLOBIN 9.6 g/dl (14.0-18.0); LYMPHOCYTES # 1.7 10^3/ul (0.8-2.9); LYMPHOCYTES % 21.1 % (15.0-51.0); MEAN CORPUSCULAR HEMOGLOBIN 27.7 pg (29.0-33.0); MEAN CORPUSCULAR HGB CONC 31.6 g/dl (32.0-37.0); MEAN CORPUSCULAR VOLUME 87.6 fl (82.0-101.0); MEAN PLATELET VOLUME 12.6 fl (7.4-10.4); MONOCYTE # 0.5 10^3/ul (0.3-0.9); MONOCYTES % 6.3 % (0.0-11.0); NEUTROPHIL # 5.5 10^3/ul (1.6-7.5); NEUTROPHILS % 67.8 % (39.0-77.0); PLATELET COUNT 152 10^3/UL (140-415); RED BLOOD COUNT 3.47 10^6/ul (4.70-6.10); RED CELL DISTRIBUTION WIDTH 16.4 % (11.5-14.5); WHITE BLOOD COUNT 8.1 10^3/ul (4.8-10.8)
[2017-08-24 07:37] LABS: CALCIUM 8.5 mg/dl (8.4-10.2); CREATININE 0.63 mg/dl (0.61-1.24); MAGNESIUM 2.3 mg/dl (1.7-2.5); PHOSPHORUS 2.9 mg/dl (2.5-4.9); POTASSIUM 3.3 mmol/L (3.5-5.1)
[2017-08-24] MEDS: INSULIN GLARGINE [LANtus] 3 ML PEN SC SCH (08:00)
[2017-08-24] MEDS ORDERED: INSULIN GLARGINE [LANtus] 3 ML PEN SC SCH (08:20)
[2017-08-24] MEDS: DOCUSATE SODIUM 10 MG/ML (10ML CUP) GTB SCH ×2 (09:00→20:52)
[2017-08-24] MEDS: BISACODYL 10 MG SUPP PR SCH (09:00)
[2017-08-24] MEDS ORDERED: FUROSEMIDE 20 MG INJ IV SCH (09:00)
[2017-08-24] MEDS: FLUCONAZOLE 100 MG TAB PO SCH (09:32)
[2017-08-24] MEDS: FINASTERIDE 5 MG TAB PEG SCH (09:32)
[2017-08-24] MEDS: LANSOPRAZOLE 30 MG CAP GTB SCH ×2 (09:32→20:52)
[2017-08-24] MEDS: MULTIVITAMINS THERAPEUTIC TAB GTB SCH (09:32)
[2017-08-24] MEDS: LEVETIRACETAM 250 MG TAB PO SCH ×2 (09:33→20:53)
[2017-08-24] MEDS: CEFEPIME 1GM/50 ML (PMX) 50 ML IVPB SCH ×2 (09:34→20:53)
[2017-08-24] MEDS: BALSAM PERU/CASTOR OIL 60 GM TUBE TOP SCH (09:34)
[2017-08-24] MEDS: CHLORHEXIDINE GLUCONATE 15 ML UD CUP MM SCH ×2 (09:34→20:52)
[2017-08-24] MEDS: NYSTATIN 30 GM POWDER BTL TOP SCH ×2 (09:34→20:53)
--- NOTE | 2017-08-24 09:50 | PN ---
DATE: 08/24/2017 SUBJECTIVE: The patient was transferred from the intensive care unit to telemetry. No other events noted. OBJECTIVE: VITAL SIGNS: Blood pressure is 127/73, pulse 83, respiration 19, temperature 98.4. HEENT: Head is normocephalic. NECK: Shows trach. HEART: Regular rate. LUNGS: Show diminished breath sounds at base. ABDOMEN: Soft, nontender to palpation. No rebound or guarding. EXTREMITIES: Negative for clubbing, cyanosis. Positive edema. DERMATOLOGIC: No rashes. MUSCULOSKELETAL: No joint effusions. NEUROLOGIC: No change in exam. MEDICATIONS: Have been reviewed. LABORATORY DATA: Currently pending. LABORATORY DATA: On 08/24/2017 shows white count 8.1, hemoglobin 9.6, platelet count is 152. ASSESSMENT AND PLAN: 1. Sepsis secondary to bacteremia fungal urinary tract infection. Patient is clinically improving. Continue current treatment plan. Continue antimicrobial therapy, continue antifungal therapy. 2. Lactic acidosis secondary to sepsis, improving. 3. Hypernatremia. Continue free water flushes 400 mL every 4 hours. Sodium levels are slowly impr oving. 4. Hypokalemia. Continue to monitor and replete. 5. Volume overload, possible diastolic heart failure. Will start the patient on diuretic therapy o f Lasix 40 mg daily. Monitor closely. 6. Ventilator dependent respiratory failure. Vent settings and ABG is reviewed. Continue to monit or. 7. Atrial fibrillation currently rate controlled. Continue medical management. 8. Dysphagia, status post PEG tube feeding. 9. Acute on chronic encephalopathy, etiology is toxic metabolic. 10. Diabetes. The patient's glucose levels are elevated. We will increase Lantus and continue agg ressive sliding scale, consider adding Tradjenta. 11. Seizure disorder. Continue Keppra. 12. Coronary artery disease. Continue medical management. 13. Benign prostatic hypertrophy. Continue Flomax. 14. Hypertension. Continue current blood pressure regimen. 15. History of cerebrovascular accident. 16. History of gastrointestinal bleed. 17. Gastrointestinal and deep venous thrombosis prophylaxis. DISPOSITION: The patient is pending a [facility] evaluation and possible transfer. Dictated By: NAVEEN LAYTON/NERY Conf#: [id number] DID#: [id number]
--- NOTE | 2017-08-24 15:11 | CONS ---
Date/Time of Note Date/Time of Note DATE: 08/24/17 TIME: 15:10 Assessment/Plan Assessment/Plan Chief Complaint/Hosp Course SUBJECTIVE: Transferred to telemetry, awake, looks comfortable, no fevers MICROBIOLOGY: Blood culture grew coagulase-negative staph species. Urine culture growing Daphne glabrata. Repeat blood cultures negative. INDWELLINGS: Trach, PEG, Dubon, midline and femoral line. ANTIMICROBIALS: 1. Cefepime. 2. Vancomycin. 3. Fluconazole. PHYSICAL EXAMINATION: GENERAL: Well-developed, chronically ill-appearing, elderly man who is in no distress. HEENT: Head atraumatic, normocephalic. Sclerae anicteric. Buccal mucosa pink , dry. NECK: Supple. Tracheostomy present. CHEST: Rise symmetrical. Breath sounds diminished. HEART: S1, S2. ABDOMEN: Soft, bowel tones present. EXTREMITIES: Without cyanosis. ASSESSMENT: 1. Resolving sepsis status post shock. 2. Coagulase-negative staph bacteremia, likely contaminated specimen with repeat blood cultures negative. 3. Daphne glabrata urinary tract infection. 4. Rapid atrial fibrillation. 5. Diabetes. 6. Chronic respiratory failure. PLAN: The patient remains stable, continue present care, antibiotics, vent management per pulmonary. DW staff Problems: Consultation Date/Type/Reason Admit Date/Time Aug 20, 2017 at 16:26 Initial Consult Date 08/21/17 Type of Consultation: ID Referring Provider: NAVEEN MAR DO Exam/Review of Systems Vital Signs Vitals Vital Signs Date Time Temp Pulse Resp B/P Pulse Ox O2 Delivery O2 Flow Rate FiO2 08/24/17 15:00 98.2 80 19 107/68 98 08/24/17 05:14 30 08/23/17 17:00 Mechanical Ventilator Intake and Output 08/23/17 08/23/17 08/24/17 15:00 23:00 07:00 Intake Total 1250 ml 600 ml 1161 ml Output Total 450 ml 200 ml 1200 ml Balance 800 ml 400 ml -39 ml Results Result Diagram: 08/24/17 0616 08/24/17 0616 Results 24 hrs Laboratory Tests Test 08/23/17 17:04 08/23/17 20:22 08/24/17 01:42 08/24/17 06:03 Bedside Glucose 275 H 224 H 221 H 215 Test 08/24/17 06:16 08/24/17 09:29 08/24/17 12:17 White Blood Count 8.1 # Red Blood Count 3.47 L Hemoglobin 9.6 L Hematocrit 30.4 L Mean Corpuscular Volume 87.6 Mean Corpuscular Hemoglobin 27.7 L Mean Corpuscular Hemoglobin Concent 31.6 L Red Cell Distribution Width 16.4 H Platelet Count 152 Mean Platelet Volume 12.6 H Neutrophils % 67.8 Lymphocytes % 21.1 Monocytes % 6.3 Eosinophils % 3.1 Basophils % 0.6 Nucleated Red Blood Cells % 0.0 Neutrophils # 5.5 Lymphocytes # 1.7 Monocytes # 0.5 Eosinophils # 0.3 Basophils # 0.1 Nucleated Red Blood Cells # 0.0 Sodium Level 147 H Potassium Level 3.3 L Chloride Level 112 H Carbon Dioxide Level 27 Anion Gap 11 Blood Urea Nitrogen 14 Creatinine 0.63 Glucose Level 197 Calcium Level 8.5 Phosphorus Level 2.9 Magnesium Level 2.3 Digoxin Level 0.7 L Bedside Glucose 244 H 224 H Medications Medications Current Medications Acetaminophen (Tylenol Liquid) 650 mg Q4H PRN GTB PAIN; Start 08/20/17 at 18: 00 Atorvastatin Calcium (Lipitor) 40 mg QHS GTB Last administered on 08/23/17 20 :18; Admin Dose 40 MG; Start 08/20/17 at 21:00 Bisacodyl (Dulcolax Supp) 10 mg DAILY WA Last administered on 08/22/17 08:19 ; Admin Dose 10 MG; Start 08/21/17 at 09:00 Chlorhexidine Gluconate (Peridex) 15 ml Q12 MM Last administered on 08/24/17 09:34; Admin Dose 15 ML; Start 08/20/17 at 21:00 Finasteride (Proscar) 5 mg DAILY PEG Last administered on 08/24/17 09:32; Admin Dose 5 MG; Start 08/21/17 at 09:00 Acetaminophen/ Hydrocodone Bitart ([place] (5/325)) 1 tab Q4 PRN GTB apin; Start 08/20/17 at 17:00 Levetiracetam (Keppra) 125 mg Q12 PO Last administered on 08/24/17 09:33; Admin Dose 125 MG; Start 08/20/17 at 21:00 Lisinopril (Zestril) 10 mg DAILY GTB Last administered on 08/21/17 08:55; Admin Dose 10 MG; Start 08/21/17 at 09:00; Status Future Hold Magnesium Hydroxide (Milk Of Mag) 30 ml Q24H GTB Last administered on 17:18; Admin Dose 30 ML; Start 08/20/17 at 17:00 Multivitamins Therapeutic (Theragran) 1 tab DAILY GTB Last administered on 09:32; Admin Dose 1 TAB; Start 08/21/17 at 09:00 Sucralfate (Carafate Susp) 1 gm Q6 GTB Last administered on 08/24/17 12:23; Admin Dose 1 GM; Start 08/20/17 at 18:30 Tamsulosin HCl (Flomax) 0.4 mg QHS PO Last administered on 08/23/17 21:06; Admin Dose 0.4 MG; Start 08/20/17 at 21:00 Lansoprazole 30 mg 30 mg BID GTB Last administered on 08/24/17 09:32; Admin Dose 30 MG; Start 08/20/17 at 21:00 Cefepime HCl (Maxipime 1gm/50 ml (Pmx)) 50 ml @ 100 mls/hr BID IVPB Last administered on 08/24/17 09:34; Admin Dose 100 MLS/HR; Start 08/20/17 at 21: 00 Miscellaneous Information 1 ea NOTE XX ; Start 08/20/17 at 18:30 Glucose (Glutose) 15 gm Q15M PRN PO DECREASED GLUCOSE; Start 08/20/17 at 18:30 Glucose (Glutose) 22.5 gm Q15M PRN PO DECREASED GLUCOSE; Start 08/20/17 at 18: 30 Dextrose (D50w Syringe) 25 ml Q15M PRN IV DECREASED GLUCOSE; Start 08/20/17 at 18:30 Dextrose (D50w Syringe) 50 ml Q15M PRN IV DECREASED GLUCOSE; Start 08/20/17 at 18:30 Glucagon (Glucagen) 1 mg Q15M PRN IM DECREASED GLUCOSE; Start 08/20/17 at 18: 30 Glucose (Glutose) 15 gm Q15M PRN BUCCAL DECREASED GLUCOSE; Start 08/20/17 at 18:30 Docusate Sodium (Colace Liquid Cup) 100 mg BID GTB Last administered on 20:19; Admin Dose 100 MG; Start 08/21/17 at 21:00 Dextrose (D50w Syringe) 25 ml Q15M PRN IV Till BS 80 mg/dL or above x2; Start 08/21/17 at 10:30 Dextrose (D50w Syringe) 50 ml Q15M PRN IV Till BS 80 mg/dL or above x2; Start 08/21/17 at 10:30 Fluconazole 100 mg 100 mg DAILY PO Last administered on 08/24/17 09:32; Admin Dose 100 MG; Start 08/22/17 at 09:00 Vancomycin HCl (Vancocin) 250 ml @ 125 mls/hr Q12H IVPB Last administered on 08/24/17 03:37; Admin Dose 125 MLS/HR; Start 08/22/17 at 03:30 Diltiazem HCl (Cardizem) 60 mg Q6 GTB Last administered on 08/24/17 12:23; Admin Dose 60 MG; Start 08/21/17 at 18:00 Nystatin (Nystatin Powder) 1 applic BID TOP Last administered on 08/24/17 09: 34; Admin Dose 1 APPLIC; Start 08/22/17 at 15:30 Insulin Aspart (Novolog Insulin Pen) NOVOLOG *MODERATE* ALGORI... Q4 SC Last administered on 08/24/17 12:19; Admin Dose 6 UNIT; Start 08/23/17 at 09:00 Metoprolol Tartrate (Lopressor) 50 mg Q6 GTB Last administered on 08/24/17 12 :24; Admin Dose 50 MG; Start 08/23/17 at 12:00 Insulin Glargine (Lantus) 30 unit DAILY@08 SC Last administered on 08/24/17 09:37; Admin Dose 30 UNIT; Start 08/24/17 at 08:20 Furosemide (Lasix) 20 mg DAILY IV Last administered on 08/24/17 09:38; Admin Dose 20 MG; Start 08/24/17 at 09:00 GUERO NEUMANN NP Aug 24, 2017 15:11
--- NOTE | 2017-08-24 16:28 | CONS ---
Date/Time of Note Date/Time of Note DATE: 08/24/17 TIME: 16:26 Consult Date/Type/Reason Admit Date/Time Aug 20, 2017 at 16:26 Initial Consult Date 08/21/17 Type of Consultation: Pulm Ordering Provider: NAVEEN MAR DO Subjective PHYSICAL EXAMINATION GENERAL: Elderly gentleman, mechanical ventilation via tracheostomy VITAL SIGNS: see below. HEENT: Pupils equal, round, and reactive to light. Tracheostomy site clean and intact. CARDIAC: S1, S2, 1/6 systolic ejection murmur CHEST: Diminished air entry bilaterally. ABDOMEN: Mildly distended. Bowel sounds present no guarding or rebound EXTREMITIES: No cyanosis, clubbing edema +1 NEUROLOGIC: Generalized weakness Objective Vital Signs Date Time Temp Pulse Resp B/P Pulse Ox O2 Delivery O2 Flow Rate FiO2 08/24/17 15:00 98.2 80 19 107/68 98 08/24/17 05:14 30 08/23/17 17:00 Mechanical Ventilator Intake and Output 08/23/17 08/23/17 08/24/17 14:59 22:59 06:59 Intake Total 1200 ml 650 ml 1161 ml Output Total 400 ml 250 ml 1200 ml Balance 800 ml 400 ml -39 ml Exam PHYSICAL EXAMINATION GENERAL: Elderly gentleman, mechanical ventilation via tracheostomy VITAL SIGNS: see below. HEENT: Pupils equal, round, and reactive to light. Tracheostomy site clean and intact. CARDIAC: S1, S2, 1/6 systolic ejection murmur CHEST: Diminished air entry bilaterally. ABDOMEN: Mildly distended. Bowel sounds present no guarding or rebound EXTREMITIES: No cyanosis, clubbing edema +1 NEUROLOGIC: Generalized weakness Results/Medications Result Diagram: 08/24/17 0616 08/24/17 0616 Results 24 hrs Laboratory Tests Test 08/23/17 17:04 08/23/17 20:22 08/24/17 01:42 08/24/17 06:03 Bedside Glucose 275 H 224 H 221 H 215 Test 08/24/17 06:16 08/24/17 09:29 08/24/17 12:17 White Blood Count 8.1 # Red Blood Count 3.47 L Hemoglobin 9.6 L Hematocrit 30.4 L Mean Corpuscular Volume 87.6 Mean Corpuscular Hemoglobin 27.7 L Mean Corpuscular Hemoglobin Concent 31.6 L Red Cell Distribution Width 16.4 H Platelet Count 152 Mean Platelet Volume 12.6 H Neutrophils % 67.8 Lymphocytes % 21.1 Monocytes % 6.3 Eosinophils % 3.1 Basophils % 0.6 Nucleated Red Blood Cells % 0.0 Neutrophils # 5.5 Lymphocytes # 1.7 Monocytes # 0.5 Eosinophils # 0.3 Basophils # 0.1 Nucleated Red Blood Cells # 0.0 Sodium Level 147 H Potassium Level 3.3 L Chloride Level 112 H Carbon Dioxide Level 27 Anion Gap 11 Blood Urea Nitrogen 14 Creatinine 0.63 Glucose Level 197 Calcium Level 8.5 Phosphorus Level 2.9 Magnesium Level 2.3 Digoxin Level 0.7 L Bedside Glucose 244 H 224 H Medications Current Medications Acetaminophen (Tylenol Liquid) 650 mg Q4H PRN GTB PAIN; Start 08/20/17 at 18: 00 Atorvastatin Calcium (Lipitor) 40 mg QHS GTB Last administered on 08/23/17 20 :18; Admin Dose 40 MG; Start 08/20/17 at 21:00 Bisacodyl (Dulcolax Supp) 10 mg DAILY ND Last administered on 08/22/17 08:19 ; Admin Dose 10 MG; Start 08/21/17 at 09:00 Chlorhexidine Gluconate (Peridex) 15 ml Q12 MM Last administered on 08/24/17 09:34; Admin Dose 15 ML; Start 08/20/17 at 21:00 Finasteride (Proscar) 5 mg DAILY PEG Last administered on 08/24/17 09:32; Admin Dose 5 MG; Start 08/21/17 at 09:00 Acetaminophen/ Hydrocodone Bitart ([place] (5/325)) 1 tab Q4 PRN GTB apin; Start 08/20/17 at 17:00 Levetiracetam (Keppra) 125 mg Q12 PO Last administered on 08/24/17 09:33; Admin Dose 125 MG; Start 08/20/17 at 21:00 Lisinopril (Zestril) 10 mg DAILY GTB Last administered on 08/21/17 08:55; Admin Dose 10 MG; Start 08/21/17 at 09:00; Status Future Hold Magnesium Hydroxide (Milk Of Mag) 30 ml Q24H GTB Last administered on 17:18; Admin Dose 30 ML; Start 08/20/17 at 17:00 Multivitamins Therapeutic (Theragran) 1 tab DAILY GTB Last administered on 09:32; Admin Dose 1 TAB; Start 08/21/17 at 09:00 Sucralfate (Carafate Susp) 1 gm Q6 GTB Last administered on 08/24/17 12:23; Admin Dose 1 GM; Start 08/20/17 at 18:30 Tamsulosin HCl (Flomax) 0.4 mg QHS PO Last administered on 08/23/17 21:06; Admin Dose 0.4 MG; Start 08/20/17 at 21:00 Lansoprazole 30 mg 30 mg BID GTB Last administered on 08/24/17 09:32; Admin Dose 30 MG; Start 08/20/17 at 21:00 Cefepime HCl (Maxipime 1gm/50 ml (Pmx)) 50 ml @ 100 mls/hr BID IVPB Last administered on 08/24/17 09:34; Admin Dose 100 MLS/HR; Start 08/20/17 at 21: 00 Miscellaneous Information 1 ea NOTE XX ; Start 08/20/17 at 18:30 Glucose (Glutose) 15 gm Q15M PRN PO DECREASED GLUCOSE; Start 08/20/17 at 18:30 Glucose (Glutose) 22.5 gm Q15M PRN PO DECREASED GLUCOSE; Start 08/20/17 at 18: 30 Dextrose (D50w Syringe) 25 ml Q15M PRN IV DECREASED GLUCOSE; Start 08/20/17 at 18:30 Dextrose (D50w Syringe) 50 ml Q15M PRN IV DECREASED GLUCOSE; Start 08/20/17 at 18:30 Glucagon (Glucagen) 1 mg Q15M PRN IM DECREASED GLUCOSE; Start 08/20/17 at 18: 30 Glucose (Glutose) 15 gm Q15M PRN BUCCAL DECREASED GLUCOSE; Start 08/20/17 at 18:30 Docusate Sodium (Colace Liquid Cup) 100 mg BID GTB Last administered on 20:19; Admin Dose 100 MG; Start 08/21/17 at 21:00 Dextrose (D50w Syringe) 25 ml Q15M PRN IV Till BS 80 mg/dL or above x2; Start 08/21/17 at 10:30 Dextrose (D50w Syringe) 50 ml Q15M PRN IV Till BS 80 mg/dL or above x2; Start 08/21/17 at 10:30 Fluconazole 100 mg 100 mg DAILY PO Last administered on 08/24/17 09:32; Admin Dose 100 MG; Start 08/22/17 at 09:00 Vancomycin HCl (Vancocin) 250 ml @ 125 mls/hr Q12H IVPB Last administered on 08/24/17 03:37; Admin Dose 125 MLS/HR; Start 08/22/17 at 03:30 Diltiazem HCl (Cardizem) 60 mg Q6 GTB Last administered on 08/24/17 12:23; Admin Dose 60 MG; Start 08/21/17 at 18:00 Nystatin (Nystatin Powder) 1 applic BID TOP Last administered on 08/24/17 09: 34; Admin Dose 1 APPLIC; Start 08/22/17 at 15:30 Insulin Aspart (Novolog Insulin Pen) NOVOLOG *MODERATE* ALGORI... Q4 SC Last administered on 08/24/17 12:19; Admin Dose 6 UNIT; Start 08/23/17 at 09:00 Metoprolol Tartrate (Lopressor) 50 mg Q6 GTB Last administered on 08/24/17 12 :24; Admin Dose 50 MG; Start 08/23/17 at 12:00 Insulin Glargine (Lantus) 30 unit DAILY@08 SC Last administered on 08/24/17 09:37; Admin Dose 30 UNIT; Start 08/24/17 at 08:20 Furosemide (Lasix) 20 mg DAILY IV Last administered on 08/24/17 09:38; Admin Dose 20 MG; Start 08/24/17 at 09:00 Assessment/Plan Chief Complaint/Hosp Course Assessment 1. Atrial for ablation with rapid ventricular rate 2. Vent dependent respiratory failure 3. Chronic encephalopathy 4. Dysphagia with G-tube 5. Hypernatremia and hypokalemia Plan 1. Continue rate control per cardiology 2. Continue mechanical ventilation not for weaning. 3. Continue tube feeding as tolerated 4. Tube feeding and electrolyte replacement per primary team dc planning ? Problems: THANG WHITESIDE MD, [facility] Aug 24, 2017 16:28
--- NOTE | 2017-08-24 16:53 | CONS ---
Date/Time of Note Date/Time of Note DATE: 08/24/17 TIME: 16:52 Consult Date/Type/Reason Admit Date/Time Aug 20, 2017 at 16:26 Initial Consult Date 08/21/17 Type of Consultation: cv Ordering Provider: NAVEEN MAR DO Subjective cardiology follow up note: S: D/ W staff and rhythm was reviewed. pt remains in AFIB heart rate has remained stable mostly but intermittently has been elevated. Patient off of Cardizem drip now. He is still on metoprolol and Cardizem p.o. dose. pt s/p trach and nonverbal. O: General: Status post tracheostomy on oxygen now HEENT: NC/AT. pupils are equal. round. NECK: NO JVD. no stridor. CV: Irregularly irregular. Tachycardic.. systolic murmur; no gallop or rubs. PULM: no wheezing . Mild rhonchi. GI: SOFT, NT, ND, no rebound or guarding. Status post PEG placement Extremity: trace B/L LE edema. no clubbing. neuro: Lethargic. Opens his eyes to verbal stimuli Psych: calm and pleasant rectal: deferred : normal male EKG: A. fib with rapid ventricular response. ST-T wave abnormalities suggestive of ischemia echo reviewed personally: 1. Normal left ventricular cavity size. Mild concentric left ventricular hypertrophy. Mild global left ventricular systolic dysfunction. Ejection fraction is visually estimated at 45-50 %. Abnormal Diastolic Function. 2. There is moderate enlargement of left atrium. 3. Mild mitral leaflet calcification. Mild mitral annular calcification. Trace mitral regurgitation. 4. Normal appearance of the aortic valve. No significant aortic stenosis or insufficiency. 5. Normal appearance of the tricuspid valve. Estimated peak PA systolic pressure 36 mmHg. There is mild tricuspid regurgitation. 6. Inferior vena cava without respiratory collapse, however, patient on ventilator. Objective Vital Signs Date Time Temp Pulse Resp B/P Pulse Ox O2 Delivery O2 Flow Rate FiO2 08/24/17 15:00 98.2 80 19 107/68 98 08/24/17 14:53 30 08/23/17 17:00 Mechanical Ventilator Intake and Output 08/23/17 08/23/17 08/24/17 15:00 23:00 07:00 Intake Total 1250 ml 600 ml 1161 ml Output Total 450 ml 200 ml 1200 ml Balance 800 ml 400 ml -39 ml Results/Medications Result Diagram: 08/24/17 0616 08/24/17 0616 Results 24 hrs Laboratory Tests Test 08/23/17 17:04 08/23/17 20:22 08/24/17 01:42 08/24/17 06:03 Bedside Glucose 275 H 224 H 221 H 215 Test 08/24/17 06:16 08/24/17 09:29 08/24/17 12:17 White Blood Count 8.1 # Red Blood Count 3.47 L Hemoglobin 9.6 L Hematocrit 30.4 L Mean Corpuscular Volume 87.6 Mean Corpuscular Hemoglobin 27.7 L Mean Corpuscular Hemoglobin Concent 31.6 L Red Cell Distribution Width 16.4 H Platelet Count 152 Mean Platelet Volume 12.6 H Neutrophils % 67.8 Lymphocytes % 21.1 Monocytes % 6.3 Eosinophils % 3.1 Basophils % 0.6 Nucleated Red Blood Cells % 0.0 Neutrophils # 5.5 Lymphocytes # 1.7 Monocytes # 0.5 Eosinophils # 0.3 Basophils # 0.1 Nucleated Red Blood Cells # 0.0 Sodium Level 147 H Potassium Level 3.3 L Chloride Level 112 H Carbon Dioxide Level 27 Anion Gap 11 Blood Urea Nitrogen 14 Creatinine 0.63 Glucose Level 197 Calcium Level 8.5 Phosphorus Level 2.9 Magnesium Level 2.3 Digoxin Level 0.7 L Bedside Glucose 244 H 224 H Medications Current Medications Acetaminophen (Tylenol Liquid) 650 mg Q4H PRN GTB PAIN; Start 08/20/17 at 18: 00 Atorvastatin Calcium (Lipitor) 40 mg QHS GTB Last administered on 08/23/17 20 :18; Admin Dose 40 MG; Start 08/20/17 at 21:00 Bisacodyl (Dulcolax Supp) 10 mg DAILY [place] Last administered on 08/22/17 08:19 ; Admin Dose 10 MG; Start 08/21/17 at 09:00 Chlorhexidine Gluconate (Peridex) 15 ml Q12 MM Last administered on 08/24/17 09:34; Admin Dose 15 ML; Start 08/20/17 at 21:00 Finasteride (Proscar) 5 mg DAILY PEG Last administered on 08/24/17 09:32; Admin Dose 5 MG; Start 08/21/17 at 09:00 Acetaminophen/ Hydrocodone Bitart ([place] (5/325)) 1 tab Q4 PRN GTB apin; Start 08/20/17 at 17:00 Levetiracetam (Keppra) 125 mg Q12 PO Last administered on 08/24/17 09:33; Admin Dose 125 MG; Start 08/20/17 at 21:00 Lisinopril (Zestril) 10 mg DAILY GTB Last administered on 08/21/17 08:55; Admin Dose 10 MG; Start 08/21/17 at 09:00; Status Future Hold Magnesium Hydroxide (Milk Of Mag) 30 ml Q24H GTB Last administered on 17:18; Admin Dose 30 ML; Start 08/20/17 at 17:00 Multivitamins Therapeutic (Theragran) 1 tab DAILY GTB Last administered on 09:32; Admin Dose 1 TAB; Start 08/21/17 at 09:00 Sucralfate (Carafate Susp) 1 gm Q6 GTB Last administered on 08/24/17 12:23; Admin Dose 1 GM; Start 08/20/17 at 18:30 Tamsulosin HCl (Flomax) 0.4 mg QHS PO Last administered on 08/23/17 21:06; Admin Dose 0.4 MG; Start 08/20/17 at 21:00 Lansoprazole 30 mg 30 mg BID GTB Last administered on 08/24/17 09:32; Admin Dose 30 MG; Start 08/20/17 at 21:00 Cefepime HCl (Maxipime 1gm/50 ml (Pmx)) 50 ml @ 100 mls/hr BID IVPB Last administered on 08/24/17 09:34; Admin Dose 100 MLS/HR; Start 08/20/17 at 21: 00 Miscellaneous Information 1 ea NOTE XX ; Start 08/20/17 at 18:30 Glucose (Glutose) 15 gm Q15M PRN PO DECREASED GLUCOSE; Start 08/20/17 at 18:30 Glucose (Glutose) 22.5 gm Q15M PRN PO DECREASED GLUCOSE; Start 08/20/17 at 18: 30 Dextrose (D50w Syringe) 25 ml Q15M PRN IV DECREASED GLUCOSE; Start 08/20/17 at 18:30 Dextrose (D50w Syringe) 50 ml Q15M PRN IV DECREASED GLUCOSE; Start 08/20/17 at 18:30 Glucagon (Glucagen) 1 mg Q15M PRN IM DECREASED GLUCOSE; Start 08/20/17 at 18: 30 Glucose (Glutose) 15 gm Q15M PRN BUCCAL DECREASED GLUCOSE; Start 08/20/17 at 18:30 Docusate Sodium (Colace Liquid Cup) 100 mg BID GTB Last administered on 20:19; Admin Dose 100 MG; Start 08/21/17 at 21:00 Dextrose (D50w Syringe) 25 ml Q15M PRN IV Till BS 80 mg/dL or above x2; Start 08/21/17 at 10:30 Dextrose (D50w Syringe) 50 ml Q15M PRN IV Till BS 80 mg/dL or above x2; Start 08/21/17 at 10:30 Fluconazole 100 mg 100 mg DAILY PO Last administered on 08/24/17 09:32; Admin Dose 100 MG; Start 08/22/17 at 09:00 Vancomycin HCl (Vancocin) 250 ml @ 125 mls/hr Q12H IVPB Last administered on 08/24/17 03:37; Admin Dose 125 MLS/HR; Start 08/22/17 at 03:30 Diltiazem HCl (Cardizem) 60 mg Q6 GTB Last administered on 08/24/17 12:23; Admin Dose 60 MG; Start 08/21/17 at 18:00 Nystatin (Nystatin Powder) 1 applic BID TOP Last administered on 08/24/17 09: 34; Admin Dose 1 APPLIC; Start 08/22/17 at 15:30 Insulin Aspart (Novolog Insulin Pen) NOVOLOG *MODERATE* ALGORI... Q4 SC Last administered on 08/24/17 12:19; Admin Dose 6 UNIT; Start 08/23/17 at 09:00 Metoprolol Tartrate (Lopressor) 50 mg Q6 GTB Last administered on 08/24/17 12 :24; Admin Dose 50 MG; Start 08/23/17 at 12:00 Insulin Glargine (Lantus) 30 unit DAILY@08 SC Last administered on 08/24/17 09:37; Admin Dose 30 UNIT; Start 08/24/17 at 08:20 Furosemide (Lasix) 20 mg DAILY IV Last administered on 08/24/17 09:38; Admin Dose 20 MG; Start 08/24/17 at 09:00 Assessment/Plan Chief Complaint/Hosp Course 1.: Atrial fibrillation with rapid ventricular response due to below 2. Hypoxemic respiratory failure status post tracheostomy 3. Sepsis probably with UTI 4. History of multiple CVA 5. Diabetes with severely elevated glucose level probably related to above 6. Dyslipidemia 7. Encephalopathy 8. Severe lactic acidosis 9. Mildly abnormal troponin most likely secondary to above: Rule out acute myocardial infarction Recommendations: . Antibiotic is being managed as per internal medicine. Respiratory care will be continued. Patient will be started on Cardizem drip prn to control the heart rate better cont po cardizem and inc metoprolol as needed/tolerated We will give a dose of IV digoxin now and as needed. hold lisinopril to avoid hypotension . hold provigil due to tachycardia. We will continue to closely monitor on telemetry. Thank you for his referral. I will continue to follow along with you. KATHY MITTAL MD [facility] Problems: KATHY MITATL MD Aug 24, 2017 16:53
[2017-08-24] MEDS ORDERED: DIGOXIN 500 MCG INJ IV ONE (17:00)
[2017-08-24] MEDS: MAGNESIUM HYDROXIDE 30ML CUP GTB SCH (17:00)
[2017-08-24] MEDS: TAMSULOSIN (SR) 0.4 MG CAP PO SCH (20:52)
[2017-08-24] MEDS: ATORVASTATIN 40 MG TAB GTB SCH (20:52)
== END 2017-08-24 21:15 | DRG 870 ==
LOC: E/R 12:59 → ICU 16:26 → TEL 08-23 18:03
PROVIDERS: ADMIT Internal Medicine; ATTEND Internal Medicine
PROC: 06HM33Z Insertion of Infusion Device into Right Femoral Vein, Percutaneous Approach (ICD-10-PCS; principal; 2017-08-20)
PROC: 5A1955Z Respiratory Ventilation, Greater than 96 Consecutive Hours (ICD-10-PCS; 2017-08-20)
DX: A41.9 Sepsis, unspecified organism (principal); G92 Toxic encephalopathy; R65.21 Severe sepsis with septic shock; Z99.11 Dependence on respirator [ventilator] status; J96.11 Chronic respiratory failure with hypoxia; E87.0 Hyperosmolality and hypernatremia; Z93.0 Tracheostomy status; I48.91 Unspecified atrial fibrillation; B37.49 Other urogenital candidiasis; I10 Essential (primary) hypertension; E11.9 Type 2 diabetes mellitus without complications; I25.10 Atherosclerotic heart disease of native coronary artery without angina pectoris; N40.0 Benign prostatic hyperplasia without lower urinary tract symptoms; G40.909 Epilepsy, unspecified, not intractable, without status epilepticus; D64.9 Anemia, unspecified; E87.6 Hypokalemia; Z79.4 Long term (current) use of insulin; Z93.1 Gastrostomy status
CPT/HCPCS: 36415; 36600; 71010; 80048; 80053; 80061; 80162; 80202; 81001; 82550; 82553; 82803; 82962; 83605; 83690; 83735; 83880; 84100; 84145; 84439; 84443; 84484; 85025; 85610; 85730; 87040; 87081; 87086; 87400; 93005; 93306; 94002; 94003; 94799; 96374; 96375; 96376; J1940; J0282; J0692; J1815; J3370; J7030; J7050; J7060